=== PATIENT | male | born 1960 | race Caucasian/White ===

== ENCOUNTER 2020-04-22 12:37 | Inpatient (IN) | payer MEDICAID ==
[~2020-04-22] VITALS: Ht 157.5 cm; Wt 111.0 kg
[~2020-04-22 12:37] MED LIST: ASPI-1111 PO; ATOR40TA28 PO; CHOL100018 PO; CLOP75TA3 PO; FINA-27 PO; GABA-1181 PO; HALO10 PO; INSLAN SQ; ISOS60TA4 PO; LISI-661 PO; METF-960 PO; METO50 PO; PANT20TA12 PO; QUET200T PO; SERT100T12 PO; TAMS-1 PO
[2020-04-25 19:59] VITALS: BP 122/73
[2020-04-25] MEDS ORDERED: PNEUMOCOCCAL VACCINE POLYVALENT 0.5 ML VIAL [PPSV23] IM ONE (20:30)
[2020-04-26] MEDS ORDERED: NICOTINE 14 MG/24 HOUR PATCH TD PRN (06:45)
[2020-04-26] MEDS ORDERED: GuaiFENesin/D-METHORPHAN [SUGAR-FREE] 200-20MG/10 ML SYRUP UDCUP PO PRN (06:45)
[2020-04-26] MEDS ORDERED: CloNIDine HCL 0.1 MG TABLET PO PRN (06:45)
[2020-04-26] MEDS ORDERED: ONDANSETRON HCL 4 MG TABLET PO PRN (06:45)
[2020-04-26] MEDS ORDERED: LOPERAMIDE HCL 2 MG CAPSULE PO PRN (06:45)
[2020-04-26] MEDS ORDERED: MAGNESIUM HYDROXIDE SUSPENSION 30 ML UDCUP PO PRN (06:45)
[2020-04-26] MEDS ORDERED: ALBUTEROL SULFATE HFA 90 MCG/PUFF 8 GM INHALER IH PRN (06:45)
[2020-04-26] MEDS ORDERED: ACETAMINOPHEN 325 MG TABLET PO PRN (06:45)
[2020-04-26] MEDS ORDERED: DEXTROSE 50%-WATER 25 GM/50 ML SYRINGE IVP PRN (06:45)
[2020-04-26] MEDS ORDERED: DOCUSATE SODIUM 100 MG CAPSULE PO PRN (06:45)
[2020-04-26] MEDS ORDERED: PETROLATUM,WHITE 28 GM JELLY TP PRN (06:45)
[2020-04-26] MEDS: MetFORMIN HCL 500 MG TABLET PO SCH ×2 (06:56→16:33)
[2020-04-26] MEDS: LURASIDONE HCL 60 MG TABLET PO SCH ×2 (06:56→16:33)
[2020-04-26] MEDS: INSULIN LISPRO 100 UNITS/ML SQ PRN ×4 (07:08→21:06)
[2020-04-26 07:14] LABS: GLUCOMETER DEV NAME(LOC) 3E.I 2; GLUCOSE,POINT OF CARE 226 MG/DL (70-110)
[2020-04-26] MEDS: SERTRALINE HCL 100 MG TABLET PO SCH (08:24)
[2020-04-26] MEDS: METOPROLOL TARTRATE 25 MG TABLET PO SCH ×2 (08:24→16:35)
[2020-04-26] MEDS: LISINOPRIL 10 MG TABLET PO SCH (08:24)
[2020-04-26] MEDS: FINASTERIDE 5 MG TABLET PO SCH (08:24)
[2020-04-26] MEDS: GABAPENTIN 300 MG CAPSULE PO SCH ×3 (08:24→16:33)
[2020-04-26] MEDS: ASPIRIN 81 MG EC TABLET PO SCH (08:24)
[2020-04-26] MEDS: CLOPIDOGREL BISULFATE 75 MG TABLET PO SCH (08:24)
[2020-04-26] MEDS: ISOSORBIDE MONONITRATE 60 MG ER TABLET PO SCH (08:24)
[2020-04-26] MEDS: TAMSULOSIN HCL 0.4 MG CAPSULE PO SCH (08:24)
[2020-04-26 09:12] VITALS: BP 131/83
[2020-04-26 11:34] LABS: GLUCOMETER DEV NAME(LOC) 3E.I 2; GLUCOSE,POINT OF CARE 290 MG/DL (70-110)
[2020-04-26 16:10] VITALS: BP 105/53
[2020-04-26 17:29] LABS: GLUCOMETER DEV NAME(LOC) 3E.I 2; GLUCOSE,POINT OF CARE 216 MG/DL (70-110)
[2020-04-26 17:55] VITALS: BP 123/92
[2020-04-26 19:07] LABS: BASOPHILS % (AUTO) 0.4 % (0.0-2.0); EOSINOPHILS % (AUTO) 2.6 % (1.0-6.0); HEMATOCRIT 37.5 % (41-53); HEMOGLOBIN 12.3 g/dL (13.5-17.5); LYMPHOCYTES # (AUTO) 1.7 K/uL (1.0-4.8); LYMPHOCYTES % (AUTO) 32.8 % (22.0-44.0); MEAN CORPUSCULAR HEMOGLOBIN 25.1 pg (26.0-34.0); MEAN CORPUSCULAR HGB CONC 32.7 G/dL (31.0-37.0); MEAN CORPUSCULAR VOLUME 77 fL (80-100); MONOCYTES # (AUTO) 0.4 K/uL (0.1-1.0); MONOCYTES % (AUTO) 7.8 % (2.0-9.0); NEUTROPHILS # (AUTO) 2.9 K/uL (1.8-7.7); NEUTROPHILS % (AUTO) 56.4 % (40.0-70.0); PLATELET COUNT (AUTO) 273 K/uL (150-450); RED BLOOD CELL COUNT(AUTO) 4.89 MIL/uL (4.50-5.90); RED CELL DISTRIBUTION WIDTH 17.8 % (11.5-14.5)
[2020-04-26 19:13] LABS: ANION GAP 10 mmol/L (8-16); CALCIUM, TOTAL 9.1 mg/dL (8.8-10.5); CARBON DIOXIDE 26 mmol/L (22-29); CHLORIDE 100 mmol/L (98-107); CREATININE 0.98 mg/dL (0.60-1.30); GLOMERULAR FILTR. RATE CALC > 60 mL/min (>60); GLUCOSE,RANDOM 232 mg/dL (70-110); POTASSIUM 4.1 mmol/L (3.5-5.1); SODIUM SERUM 136 mmol/L (136-145); UREA NITROGEN, BLOOD 12 mg/dL (7-18)
[2020-04-26 19:38] LABS: ALANINE AMINOTRANSFERASE 52 U/L (12-78); ALBUMIN 3.9 g/dL (3.4-5.0); ALKALINE PHOSPHATASE 121 U/L (46-116); ASPARTATE AMINOTRANSFERASE 23 U/L (15-37); BILIRUBIN,TOTAL 0.4 mg/dL (0.1-1.0); CREATINE KINASE, TOTAL ONLY 245 U/L (39-308); TOTAL PROTEIN, SERUM 7.5 g/dL (6.4-8.2)
[2020-04-26] MEDS ORDERED: QUEtiapine FUMARATE 200 MG TABLET PO SCH (21:00)
[2020-04-26] MEDS: TraZODone HCL 100 MG TABLET PO SCH (21:07)
[2020-04-26] MEDS: INSULIN GLARGINE,HUM.REC.ANLOG 100 UNITS/ML SQ SCH (21:07)
[2020-04-26] MEDS: ATORVASTATIN CALCIUM 40 MG TABLET PO SCH (21:08)
[2020-04-26 21:23] LABS: GLUCOMETER DEV NAME(LOC) 3E.I 2; GLUCOSE,POINT OF CARE 180 MG/DL (70-110)
[2020-04-26 23:30] LABS: APPEARANCE,URINE CLEAR (CLEAR); BILIRUBIN,URINE NEGATIVE (NEGATIVE); GLUCOSE, URINE (UA) 100 mg/dL (NEGATIVE); KETONES,URINE NEGATIVE (NEGATIVE); LEUKOCYTE ESTERASE ,URINE NEGATIVE (NEGATIVE); NITRATE,URINE NEGATIVE (NEGATIVE); OCCULT BLOOD,URINE NEGATIVE (NEGATIVE); PROTEIN,URINE NEGATIVE (NEGATIVE)
[2020-04-26 23:36] LABS: AMPHET/METH SCREEN,URINE NEGATIVE (NEGATIVE); BARBITURATE SCREEN, URINE NEGATIVE (NEGATIVE); BENZODIAZEPINES SCREEN,URINE NEGATIVE (NEGATIVE); CANNABINOID SCREEN,URINE NEGATIVE (NEGATIVE); COCAINE SCREEN,URINE NEGATIVE (NEGATIVE); METHADONE SCREEN, URINE NEGATIVE (NEGATIVE); OPIATE SCREEN,URINE NEGATIVE (NEGATIVE)
[2020-04-26 23:37] LABS: PHENCYCLIDINE SCREEN,URINE NEGATIVE (NEGATIVE)
[2020-04-26 23:56] LABS: BACTERIA,URINE None Seen /HPF (None Seen); RBC,URINE None Seen /HPF (0-2); SQUAMOUS EPITHELIAL CELL,UR Few /LPF (None Seen); WBC,URINE None Seen /HPF (0-5); YEAST,URINE None Seen /HPF (None Seen)
[2020-04-27 05:20] LABS: GLUCOMETER DEV NAME(LOC) 3E.I 2; GLUCOSE,POINT OF CARE 191 MG/DL (70-110)
[2020-04-27] MEDS: MetFORMIN HCL 500 MG TABLET PO SCH ×2 (07:00→16:50)
[2020-04-27] MEDS: LURASIDONE HCL 60 MG TABLET PO SCH ×2 (07:00→16:51)
[2020-04-27] MEDS: INSULIN LISPRO 100 UNITS/ML SQ PRN ×4 (07:02→21:03)
[2020-04-27 08:00] VITALS: BP 144/75
[2020-04-27] MEDS: SERTRALINE HCL 100 MG TABLET PO SCH (08:48)
[2020-04-27] MEDS: METOPROLOL TARTRATE 25 MG TABLET PO SCH ×2 (08:48→17:42)
[2020-04-27] MEDS: ASPIRIN 81 MG EC TABLET PO SCH (08:48)
[2020-04-27] MEDS: ISOSORBIDE MONONITRATE 60 MG ER TABLET PO SCH (08:48)
[2020-04-27] MEDS: CLOPIDOGREL BISULFATE 75 MG TABLET PO SCH (08:48)
[2020-04-27] MEDS: FINASTERIDE 5 MG TABLET PO SCH (08:48)
[2020-04-27] MEDS: TAMSULOSIN HCL 0.4 MG CAPSULE PO SCH (08:48)
[2020-04-27] MEDS: LISINOPRIL 10 MG TABLET PO SCH (08:49)
[2020-04-27] MEDS: GABAPENTIN 300 MG CAPSULE PO SCH ×3 (08:49→16:50)
[2020-04-27 09:40] LABS: ALANINE AMINOTRANSFERASE 48 U/L (12-78); ALBUMIN 3.8 g/dL (3.4-5.0); ALKALINE PHOSPHATASE 116 U/L (46-116); ANION GAP 10 mmol/L (8-16); ASPARTATE AMINOTRANSFERASE 20 U/L (15-37); BILIRUBIN,TOTAL 0.5 mg/dL (0.1-1.0); CALCIUM, TOTAL 8.6 mg/dL (8.8-10.5); CARBON DIOXIDE 25 mmol/L (22-29); CHLORIDE 104 mmol/L (98-107); CREATININE 0.79 mg/dL (0.60-1.30); GLOMERULAR FILTR. RATE CALC > 60 mL/min (>60); GLUCOSE,RANDOM 212 mg/dL (70-110); POTASSIUM 4.6 mmol/L (3.5-5.1); SODIUM SERUM 139 mmol/L (136-145); TOTAL PROTEIN, SERUM 6.9 g/dL (6.4-8.2); UREA NITROGEN, BLOOD 11 mg/dL (7-18)
[2020-04-27 10:44] LABS: GLUCOMETER DEV NAME(LOC) 3E.I 2; GLUCOSE,POINT OF CARE 255 MG/DL (70-110)
[2020-04-27 15:45] VITALS: BP 121/76
[2020-04-27] MEDS: LORazepam 2 MG TABLET PO PRN (15:54)
[2020-04-27 16:40] VITALS: BP 114/67
[2020-04-27 17:40] VITALS: BP 138/75
[2020-04-27] MEDS: ATORVASTATIN CALCIUM 40 MG TABLET PO SCH (20:50)
[2020-04-27] MEDS: TraZODone HCL 100 MG TABLET PO SCH (20:50)
[2020-04-27] MEDS: INSULIN GLARGINE,HUM.REC.ANLOG 100 UNITS/ML SQ SCH (21:02)
[2020-04-28 05:25] LABS: GLUCOMETER DEV NAME(LOC) 3E.I 2; GLUCOSE,POINT OF CARE 223 MG/DL (70-110)
[2020-04-28] MEDS: LURASIDONE HCL 60 MG TABLET PO SCH ×2 (06:34→16:56)
[2020-04-28] MEDS: MetFORMIN HCL 500 MG TABLET PO SCH ×2 (06:34→16:55)
[2020-04-28] MEDS: INSULIN LISPRO 100 UNITS/ML SQ PRN ×4 (06:35→20:50)
[2020-04-28 08:00] VITALS: BP 107/70
[2020-04-28] MEDS: FINASTERIDE 5 MG TABLET PO SCH (09:30)
[2020-04-28] MEDS: CLOPIDOGREL BISULFATE 75 MG TABLET PO SCH (09:30)
[2020-04-28] MEDS: ISOSORBIDE MONONITRATE 60 MG ER TABLET PO SCH (09:30)
[2020-04-28] MEDS: ASPIRIN 81 MG EC TABLET PO SCH (09:33)
[2020-04-28] MEDS: GABAPENTIN 300 MG CAPSULE PO SCH ×3 (09:33→16:10)
[2020-04-28] MEDS: TAMSULOSIN HCL 0.4 MG CAPSULE PO SCH (09:33)
[2020-04-28] MEDS: SERTRALINE HCL 100 MG TABLET PO SCH (09:33)
[2020-04-28] MEDS: LISINOPRIL 10 MG TABLET PO SCH (09:33)
[2020-04-28] MEDS: METOPROLOL TARTRATE 25 MG TABLET PO SCH ×2 (09:33→16:10)
[2020-04-28 10:49] LABS: GLUCOMETER DEV NAME(LOC) 3E.I 2; GLUCOSE,POINT OF CARE 251 MG/DL (70-110)
[2020-04-28] MEDS: LORazepam 2 MG TABLET PO PRN (14:26)
[2020-04-28 16:21] LABS: GLUCOMETER DEV NAME(LOC) 3E.I 2; GLUCOSE,POINT OF CARE 210 MG/DL (70-110)
[2020-04-28 16:42] VITALS: BP 103/67
[2020-04-28] MEDS: HALOPERIDOL 5 MG TABLET PO PRN (17:09)
[2020-04-28] MEDS: ATORVASTATIN CALCIUM 40 MG TABLET PO SCH (20:46)
[2020-04-28] MEDS: TraZODone HCL 100 MG TABLET PO SCH (20:46)
[2020-04-28] MEDS: INSULIN GLARGINE,HUM.REC.ANLOG 100 UNITS/ML SQ SCH (20:51)
[2020-04-28 20:56] LABS: GLUCOMETER DEV NAME(LOC) 3E.I 2; GLUCOSE,POINT OF CARE 170 MG/DL (70-110)
[2020-04-29 05:42] LABS: GLUCOMETER DEV NAME(LOC) 3E.I 2; GLUCOSE,POINT OF CARE 194 MG/DL (70-110)
[2020-04-29] MEDS: LURASIDONE HCL 60 MG TABLET PO SCH ×2 (06:49→17:44)
[2020-04-29] MEDS: MetFORMIN HCL 500 MG TABLET PO SCH ×2 (06:49→17:44)
[2020-04-29] MEDS: INSULIN LISPRO 100 UNITS/ML SQ PRN ×4 (06:50→21:15)
[2020-04-29] MEDS: ISOSORBIDE MONONITRATE 60 MG ER TABLET PO SCH (09:00)
[2020-04-29] MEDS: SERTRALINE HCL 100 MG TABLET PO SCH (09:44)
[2020-04-29] MEDS: CLOPIDOGREL BISULFATE 75 MG TABLET PO SCH (09:44)
[2020-04-29] MEDS: FINASTERIDE 5 MG TABLET PO SCH (09:44)
[2020-04-29] MEDS: TAMSULOSIN HCL 0.4 MG CAPSULE PO SCH (09:44)
[2020-04-29] MEDS: METOPROLOL TARTRATE 25 MG TABLET PO SCH ×2 (09:44→17:04)
[2020-04-29] MEDS: GABAPENTIN 300 MG CAPSULE PO SCH ×3 (09:44→17:04)
[2020-04-29] MEDS: ASPIRIN 81 MG EC TABLET PO SCH (09:44)
[2020-04-29] MEDS: LISINOPRIL 10 MG TABLET PO SCH (09:45)
[2020-04-29 10:06] VITALS: BP 114/68
[2020-04-29 11:14] LABS: GLUCOMETER DEV NAME(LOC) 3E.I 2; GLUCOSE,POINT OF CARE 227 MG/DL (70-110)
[2020-04-29] MEDS: HALOPERIDOL 5 MG TABLET PO PRN (12:06)
[2020-04-29] MEDS: LORazepam 2 MG TABLET PO PRN (12:06)
[2020-04-29] MEDS ORDERED: TraMADol HCL 50 MG TABLET PO PRN (13:30)
[2020-04-29 13:47] VITALS: BP 114/70
[2020-04-29 16:00] VITALS: BP 120/67
[2020-04-29 17:47] LABS: GLUCOMETER DEV NAME(LOC) 3E.I 2; GLUCOSE,POINT OF CARE 157 MG/DL (70-110)
[2020-04-29] MEDS: ATORVASTATIN CALCIUM 40 MG TABLET PO SCH (21:09)
[2020-04-29] MEDS: TraZODone HCL 100 MG TABLET PO SCH (21:09)
[2020-04-29] MEDS: INSULIN GLARGINE,HUM.REC.ANLOG 100 UNITS/ML SQ SCH (21:17)
[2020-04-29 21:20] LABS: GLUCOMETER DEV NAME(LOC) 3E.I 2; GLUCOSE,POINT OF CARE 197 MG/DL (70-110)
[2020-04-30 05:28] LABS: GLUCOMETER DEV NAME(LOC) 3E.I 2; GLUCOSE,POINT OF CARE 183 MG/DL (70-110)
[2020-04-30] MEDS: MetFORMIN HCL 500 MG TABLET PO SCH ×2 (06:47→17:04)
[2020-04-30] MEDS: LURASIDONE HCL 60 MG TABLET PO SCH ×2 (06:47→17:06)
[2020-04-30] MEDS: INSULIN LISPRO 100 UNITS/ML SQ PRN ×4 (06:52→20:55)
[2020-04-30 08:00] VITALS: BP 105/56
[2020-04-30] MEDS: ISOSORBIDE MONONITRATE 60 MG ER TABLET PO SCH (09:00)
[2020-04-30] MEDS: ASPIRIN 81 MG EC TABLET PO SCH (11:01)
[2020-04-30] MEDS: METOPROLOL TARTRATE 25 MG TABLET PO SCH ×2 (11:02→17:00)
[2020-04-30] MEDS: TAMSULOSIN HCL 0.4 MG CAPSULE PO SCH (11:02)
[2020-04-30] MEDS: GABAPENTIN 300 MG CAPSULE PO SCH ×3 (11:02→17:04)
[2020-04-30] MEDS: LISINOPRIL 10 MG TABLET PO SCH (11:02)
[2020-04-30] MEDS: CLOPIDOGREL BISULFATE 75 MG TABLET PO SCH (11:04)
[2020-04-30] MEDS: FINASTERIDE 5 MG TABLET PO SCH (11:05)
[2020-04-30] MEDS: SERTRALINE HCL 100 MG TABLET PO SCH (11:05)
[2020-04-30 12:01] LABS: GLUCOMETER DEV NAME(LOC) 3E.I 2; GLUCOSE,POINT OF CARE 205 MG/DL (70-110)
[2020-04-30] MEDS: PANTOPRAZOLE SODIUM 40 MG DR TABLET PO SCH ×2 (13:13→17:04)
[2020-04-30] MEDS: LORazepam 2 MG TABLET PO PRN (14:22)
[2020-04-30 15:12] LABS: BASOPHILS % (AUTO) 0.5 % (0.0-2.0); EOSINOPHILS % (AUTO) 2.5 % (1.0-6.0); HEMATOCRIT 35.2 % (41-53); HEMOGLOBIN 11.7 g/dL (13.5-17.5); LYMPHOCYTES # (AUTO) 1.8 K/uL (1.0-4.8); LYMPHOCYTES % (AUTO) 34.5 % (22.0-44.0); MEAN CORPUSCULAR HEMOGLOBIN 25.5 pg (26.0-34.0); MEAN CORPUSCULAR HGB CONC 33.1 G/dL (31.0-37.0); MEAN CORPUSCULAR VOLUME 77 fL (80-100); MONOCYTES # (AUTO) 0.4 K/uL (0.1-1.0); MONOCYTES % (AUTO) 7.7 % (2.0-9.0); NEUTROPHILS # (AUTO) 2.8 K/uL (1.8-7.7); NEUTROPHILS % (AUTO) 54.8 % (40.0-70.0); PLATELET COUNT (AUTO) 239 K/uL (150-450); RED BLOOD CELL COUNT(AUTO) 4.57 MIL/uL (4.50-5.90)
[2020-04-30 16:00] VITALS: BP 116/69
[2020-04-30 16:18] VITALS: BP 95/58
[2020-04-30 16:57] LABS: GLUCOMETER DEV NAME(LOC) 3E.I 2; GLUCOSE,POINT OF CARE 152 MG/DL (70-110)
[2020-04-30] MEDS ORDERED: CHOL100018 PO (17:58)
[2020-04-30] MEDS: INSULIN GLARGINE,HUM.REC.ANLOG 100 UNITS/ML SQ SCH (20:49)
[2020-04-30] MEDS: TraZODone HCL 100 MG TABLET PO SCH (20:49)
[2020-04-30] MEDS: ATORVASTATIN CALCIUM 40 MG TABLET PO SCH (20:49)
[2020-04-30 20:59] LABS: GLUCOMETER DEV NAME(LOC) 3E.I 2; GLUCOSE,POINT OF CARE 173 MG/DL (70-110)
[2020-04-30] MEDS: MAG HYDROX/AL HYDROX/SIMETH ES 30 ML SUSPENSION UDCUP PO PRN (21:02)
[2020-05-01 05:23] LABS: GLUCOMETER DEV NAME(LOC) 3E.I 2; GLUCOSE,POINT OF CARE 148 MG/DL (70-110)
[2020-05-01] MEDS: MetFORMIN HCL 500 MG TABLET PO SCH ×2 (06:58→16:38)
[2020-05-01] MEDS: LURASIDONE HCL 60 MG TABLET PO SCH ×2 (06:58→16:39)
[2020-05-01] MEDS: INSULIN LISPRO 100 UNITS/ML SQ PRN ×3 (07:00→16:43)
[2020-05-01] MEDS: ASPIRIN 81 MG EC TABLET PO SCH (08:28)
[2020-05-01] MEDS: PANTOPRAZOLE SODIUM 40 MG DR TABLET PO SCH ×2 (08:28→16:38)
[2020-05-01] MEDS: LISINOPRIL 10 MG TABLET PO SCH (08:28)
[2020-05-01] MEDS: SERTRALINE HCL 100 MG TABLET PO SCH (08:28)
[2020-05-01] MEDS: FINASTERIDE 5 MG TABLET PO SCH (08:28)
[2020-05-01] MEDS: ISOSORBIDE MONONITRATE 60 MG ER TABLET PO SCH (08:28)
[2020-05-01] MEDS: GABAPENTIN 300 MG CAPSULE PO SCH ×3 (08:28→16:39)
[2020-05-01] MEDS: METOPROLOL TARTRATE 25 MG TABLET PO SCH ×2 (08:29→16:38)
[2020-05-01] MEDS: TAMSULOSIN HCL 0.4 MG CAPSULE PO SCH (08:29)
[2020-05-01] MEDS: CLOPIDOGREL BISULFATE 75 MG TABLET PO SCH (08:29)
[2020-05-01 09:16] VITALS: BP 104/68
[2020-05-01 11:06] LABS: GLUCOMETER DEV NAME(LOC) 3E.I 2; GLUCOSE,POINT OF CARE 165 MG/DL (70-110)
[2020-05-01 16:00] VITALS: BP 139/87
[2020-05-01 16:48] LABS: GLUCOMETER DEV NAME(LOC) 3E.I 2; GLUCOSE,POINT OF CARE 148 MG/DL (70-110)
[2020-05-01] MEDS: MAG HYDROX/AL HYDROX/SIMETH ES 30 ML SUSPENSION UDCUP PO PRN (18:56)
[2020-05-01] MEDS: TraZODone HCL 100 MG TABLET PO SCH (21:38)
[2020-05-01] MEDS: ATORVASTATIN CALCIUM 40 MG TABLET PO SCH (21:38)
[2020-05-01 21:40] VITALS: BP 120/80
[2020-05-01] MEDS: TraMADol HCL 50 MG TABLET PO PRN (21:40)
[2020-05-01] MEDS: INSULIN GLARGINE,HUM.REC.ANLOG 100 UNITS/ML SQ SCH (21:43)
[2020-05-01 21:48] LABS: GLUCOMETER DEV NAME(LOC) 3E.I 2; GLUCOSE,POINT OF CARE 132 MG/DL (70-110)
[2020-05-02] MEDS: LORazepam 2 MG TABLET PO PRN (03:23)
[2020-05-02 05:38] LABS: GLUCOMETER DEV NAME(LOC) 3E.I 2; GLUCOSE,POINT OF CARE 151 MG/DL (70-110)
[2020-05-02] MEDS: LURASIDONE HCL 60 MG TABLET PO SCH ×2 (06:52→17:19)
[2020-05-02] MEDS: MetFORMIN HCL 500 MG TABLET PO SCH ×2 (06:52→17:19)
[2020-05-02] MEDS: INSULIN LISPRO 100 UNITS/ML SQ PRN ×3 (06:54→20:52)
[2020-05-02] MEDS: CLOPIDOGREL BISULFATE 75 MG TABLET PO SCH (09:49)
[2020-05-02] MEDS: FINASTERIDE 5 MG TABLET PO SCH (09:49)
[2020-05-02] MEDS: GABAPENTIN 300 MG CAPSULE PO SCH ×3 (09:49→16:50)
[2020-05-02] MEDS: ISOSORBIDE MONONITRATE 60 MG ER TABLET PO SCH (09:49)
[2020-05-02] MEDS: LISINOPRIL 10 MG TABLET PO SCH (09:49)
[2020-05-02] MEDS: METOPROLOL TARTRATE 25 MG TABLET PO SCH ×2 (09:49→16:47)
[2020-05-02] MEDS: SERTRALINE HCL 100 MG TABLET PO SCH (09:50)
[2020-05-02] MEDS: TAMSULOSIN HCL 0.4 MG CAPSULE PO SCH (09:51)
[2020-05-02] MEDS: ASPIRIN 81 MG EC TABLET PO SCH (09:51)
[2020-05-02] MEDS: PANTOPRAZOLE SODIUM 40 MG DR TABLET PO SCH ×2 (09:51→16:50)
[2020-05-02 10:24] VITALS: BP 114/68
[2020-05-02 11:56] LABS: GLUCOMETER DEV NAME(LOC) 3E.I 2; GLUCOSE,POINT OF CARE 137 MG/DL (70-110)
[2020-05-02 16:00] VITALS: BP 98/61
[2020-05-02 16:57] LABS: GLUCOMETER DEV NAME(LOC) 3E.I 2; GLUCOSE,POINT OF CARE 178 MG/DL (70-110)
[2020-05-02] MEDS: ATORVASTATIN CALCIUM 40 MG TABLET PO SCH (20:47)
[2020-05-02] MEDS: TraZODone HCL 100 MG TABLET PO SCH (20:47)
[2020-05-02] MEDS: INSULIN GLARGINE,HUM.REC.ANLOG 100 UNITS/ML SQ SCH (20:51)
[2020-05-02 21:04] LABS: GLUCOMETER DEV NAME(LOC) 3E.I 2; GLUCOSE,POINT OF CARE 190 MG/DL (70-110)
[2020-05-03 05:39] LABS: GLUCOMETER DEV NAME(LOC) 3E.I 2; GLUCOSE,POINT OF CARE 160 MG/DL (70-110)
[2020-05-03] MEDS: LURASIDONE HCL 60 MG TABLET PO SCH ×2 (06:38→16:45)
[2020-05-03] MEDS: MetFORMIN HCL 500 MG TABLET PO SCH ×2 (06:38→16:45)
[2020-05-03] MEDS: INSULIN LISPRO 100 UNITS/ML SQ PRN ×4 (06:39→21:01)
[2020-05-03 08:22] VITALS: BP 112/58
[2020-05-03] MEDS: FINASTERIDE 5 MG TABLET PO SCH (10:16)
[2020-05-03] MEDS: CLOPIDOGREL BISULFATE 75 MG TABLET PO SCH (10:16)
[2020-05-03] MEDS: ISOSORBIDE MONONITRATE 60 MG ER TABLET PO SCH (10:16)
[2020-05-03] MEDS: TAMSULOSIN HCL 0.4 MG CAPSULE PO SCH (10:19)
[2020-05-03] MEDS: SERTRALINE HCL 100 MG TABLET PO SCH (10:19)
[2020-05-03] MEDS: ASPIRIN 81 MG EC TABLET PO SCH (10:19)
[2020-05-03] MEDS: LISINOPRIL 10 MG TABLET PO SCH (10:19)
[2020-05-03] MEDS: METOPROLOL TARTRATE 25 MG TABLET PO SCH ×2 (10:19→16:42)
[2020-05-03] MEDS: PANTOPRAZOLE SODIUM 40 MG DR TABLET PO SCH ×2 (10:19→16:46)
[2020-05-03] MEDS: GABAPENTIN 300 MG CAPSULE PO SCH ×3 (10:19→16:45)
[2020-05-03 11:58] LABS: GLUCOMETER DEV NAME(LOC) 3E.I 2; GLUCOSE,POINT OF CARE 215 MG/DL (70-110)
[2020-05-03 16:00] VITALS: BP 90/60
[2020-05-03 18:48] VITALS: BP 128/79
[2020-05-03] MEDS: LORazepam 2 MG TABLET PO PRN (18:54)
[2020-05-03] MEDS: TraZODone HCL 100 MG TABLET PO SCH (20:52)
[2020-05-03] MEDS: ATORVASTATIN CALCIUM 40 MG TABLET PO SCH (20:52)
[2020-05-03] MEDS: INSULIN GLARGINE,HUM.REC.ANLOG 100 UNITS/ML SQ SCH (21:02)
[2020-05-04 06:11] LABS: GLUCOMETER DEV NAME(LOC) 3E.I 2; GLUCOSE,POINT OF CARE 156 MG/DL (70-110)
[2020-05-04 06:44] VITALS: BP 134/67
[2020-05-04] MEDS: MetFORMIN HCL 500 MG TABLET PO SCH ×2 (06:50→16:39)
[2020-05-04] MEDS: INSULIN LISPRO 100 UNITS/ML SQ PRN ×3 (06:50→20:46)
[2020-05-04] MEDS: LURASIDONE HCL 60 MG TABLET PO SCH ×2 (07:07→16:39)
[2020-05-04] MEDS: SERTRALINE HCL 100 MG TABLET PO SCH (09:43)
[2020-05-04] MEDS: PANTOPRAZOLE SODIUM 40 MG DR TABLET PO SCH ×2 (09:43→16:39)
[2020-05-04] MEDS: TAMSULOSIN HCL 0.4 MG CAPSULE PO SCH (09:43)
[2020-05-04] MEDS: FINASTERIDE 5 MG TABLET PO SCH (09:44)
[2020-05-04] MEDS: ISOSORBIDE MONONITRATE 60 MG ER TABLET PO SCH (09:44)
[2020-05-04] MEDS: METOPROLOL TARTRATE 25 MG TABLET PO SCH ×2 (09:44→16:39)
[2020-05-04] MEDS: CLOPIDOGREL BISULFATE 75 MG TABLET PO SCH (09:44)
[2020-05-04] MEDS: GABAPENTIN 300 MG CAPSULE PO SCH ×3 (09:45→16:39)
[2020-05-04 09:46] VITALS: BP 128/80
[2020-05-04] MEDS: ASPIRIN 81 MG EC TABLET PO SCH (09:46)
[2020-05-04] MEDS: LISINOPRIL 10 MG TABLET PO SCH (09:46)
[2020-05-04 12:09] LABS: GLUCOMETER DEV NAME(LOC) 3E.I 2; GLUCOSE,POINT OF CARE 196 MG/DL (70-110)
[2020-05-04] MEDS: MAG HYDROX/AL HYDROX/SIMETH ES 30 ML SUSPENSION UDCUP PO PRN (12:58)
[2020-05-04] MEDS: LORazepam 2 MG TABLET PO PRN (12:58)
[2020-05-04 16:00] VITALS: BP 105/74
[2020-05-04 16:50] LABS: GLUCOMETER DEV NAME(LOC) 3E.I 2; GLUCOSE,POINT OF CARE 138 MG/DL (70-110)
[2020-05-04] MEDS: TraZODone HCL 100 MG TABLET PO SCH (20:42)
[2020-05-04] MEDS: ATORVASTATIN CALCIUM 40 MG TABLET PO SCH (20:42)
[2020-05-04] MEDS: ZOLPIDEM TARTRATE 10 MG TABLET PO PRN (20:43)
[2020-05-04] MEDS: INSULIN GLARGINE,HUM.REC.ANLOG 100 UNITS/ML SQ SCH (20:49)
[2020-05-04 20:53] LABS: GLUCOMETER DEV NAME(LOC) 3E.I 2; GLUCOSE,POINT OF CARE 143 MG/DL (70-110)
[2020-05-05 05:37] LABS: GLUCOMETER DEV NAME(LOC) 3E.I 2; GLUCOSE,POINT OF CARE 159 MG/DL (70-110)
[2020-05-05] MEDS: MetFORMIN HCL 500 MG TABLET PO SCH ×2 (07:08→16:39)
[2020-05-05] MEDS: LURASIDONE HCL 60 MG TABLET PO SCH ×2 (07:08→16:39)
[2020-05-05] MEDS: INSULIN LISPRO 100 UNITS/ML SQ PRN ×3 (07:11→17:35)
[2020-05-05 09:44] VITALS: BP 127/66
[2020-05-05] MEDS: PANTOPRAZOLE SODIUM 40 MG DR TABLET PO SCH ×2 (09:47→16:35)
[2020-05-05] MEDS: FINASTERIDE 5 MG TABLET PO SCH (09:47)
[2020-05-05] MEDS: TAMSULOSIN HCL 0.4 MG CAPSULE PO SCH (09:47)
[2020-05-05] MEDS: METOPROLOL TARTRATE 25 MG TABLET PO SCH ×2 (09:47→16:35)
[2020-05-05] MEDS: LISINOPRIL 10 MG TABLET PO SCH (09:47)
[2020-05-05] MEDS: CLOPIDOGREL BISULFATE 75 MG TABLET PO SCH (09:48)
[2020-05-05] MEDS: ISOSORBIDE MONONITRATE 60 MG ER TABLET PO SCH (09:48)
[2020-05-05] MEDS: ASPIRIN 81 MG EC TABLET PO SCH (09:48)
[2020-05-05] MEDS: SERTRALINE HCL 100 MG TABLET PO SCH (09:48)
[2020-05-05] MEDS: GABAPENTIN 300 MG CAPSULE PO SCH ×3 (09:48→16:35)
[2020-05-05 11:32] LABS: GLUCOMETER DEV NAME(LOC) 3E.I 2; GLUCOSE,POINT OF CARE 196 MG/DL (70-110)
[2020-05-05] MEDS ORDERED: LURA60TA PO (12:57)
[2020-05-05] MEDS ORDERED: SERT100T12 PO ×2 (12:58→13:03)
[2020-05-05] MEDS ORDERED: TRAZ-257 PO (12:58)
[2020-05-05] MEDS ORDERED: ASPI-1111 PO (12:59)
[2020-05-05] MEDS ORDERED: FINA-27 PO (13:00)
[2020-05-05] MEDS ORDERED: ATOR40TA28 PO (13:00)
[2020-05-05] MEDS ORDERED: CLOP75TA3 PO (13:00)
[2020-05-05] MEDS ORDERED: INSLAN SQ (13:01)
[2020-05-05] MEDS ORDERED: GABA-1181 PO (13:01)
[2020-05-05] MEDS ORDERED: ISOS60TA4 PO (13:01)
[2020-05-05] MEDS ORDERED: LISI-661 PO (13:01)
[2020-05-05] MEDS ORDERED: METO25 PO (13:02)
[2020-05-05] MEDS ORDERED: PANT-31 PO (13:02)
[2020-05-05] MEDS ORDERED: METF-960 PO (13:02)
[2020-05-05] MEDS ORDERED: TAMS-13 PO (13:03)
[2020-05-05 16:14] VITALS: BP 92/60
[2020-05-05 17:20] LABS: GLUCOMETER DEV NAME(LOC) 3E.I 2; GLUCOSE,POINT OF CARE 182 MG/DL (70-110)
[2020-05-05 17:50] VITALS: BP 132/71
[2020-05-05] MEDS: LORazepam 2 MG TABLET PO PRN (17:53)
[2020-05-05] MEDS: INSULIN GLARGINE,HUM.REC.ANLOG 100 UNITS/ML SQ SCH (21:00)
[2020-05-05] MEDS: ATORVASTATIN CALCIUM 40 MG TABLET PO SCH (21:34)
[2020-05-05] MEDS: TraZODone HCL 100 MG TABLET PO SCH (21:34)
[2020-05-05 21:50] LABS: GLUCOMETER DEV NAME(LOC) 3E.I 2; GLUCOSE,POINT OF CARE 124 MG/DL (70-110)
[2020-05-06 05:37] LABS: GLUCOMETER DEV NAME(LOC) 3E.I 2; GLUCOSE,POINT OF CARE 163 MG/DL (70-110)
[2020-05-06] MEDS: MetFORMIN HCL 500 MG TABLET PO SCH ×2 (06:38→16:31)
[2020-05-06] MEDS: INSULIN LISPRO 100 UNITS/ML SQ PRN ×3 (06:39→17:02)
[2020-05-06] MEDS: LURASIDONE HCL 60 MG TABLET PO SCH ×2 (06:39→16:31)
[2020-05-06 09:32] VITALS: BP 156/87
[2020-05-06] MEDS: FINASTERIDE 5 MG TABLET PO SCH (10:02)
[2020-05-06] MEDS: TAMSULOSIN HCL 0.4 MG CAPSULE PO SCH (10:02)
[2020-05-06] MEDS: SERTRALINE HCL 100 MG TABLET PO SCH (10:02)
[2020-05-06] MEDS: ASPIRIN 81 MG EC TABLET PO SCH (10:03)
[2020-05-06] MEDS: ISOSORBIDE MONONITRATE 60 MG ER TABLET PO SCH (10:03)
[2020-05-06] MEDS: PANTOPRAZOLE SODIUM 40 MG DR TABLET PO SCH ×2 (10:03→16:31)
[2020-05-06] MEDS: GABAPENTIN 300 MG CAPSULE PO SCH ×3 (10:03→16:31)
[2020-05-06] MEDS: CLOPIDOGREL BISULFATE 75 MG TABLET PO SCH (10:03)
[2020-05-06] MEDS: METOPROLOL TARTRATE 25 MG TABLET PO SCH ×2 (10:04→16:31)
[2020-05-06] MEDS: LISINOPRIL 10 MG TABLET PO SCH (10:04)
[2020-05-06 12:55] LABS: GLUCOMETER DEV NAME(LOC) 3E.I 2; GLUCOSE,POINT OF CARE 252 MG/DL (70-110)
[2020-05-06] MEDS: TraMADol HCL 50 MG TABLET PO PRN (13:29)
[2020-05-06] MEDS: LORazepam 2 MG TABLET PO PRN (13:29)
[2020-05-06 16:01] VITALS: BP 115/71
[2020-05-06 16:57] LABS: GLUCOMETER DEV NAME(LOC) 3E.I 2; GLUCOSE,POINT OF CARE 170 MG/DL (70-110)
[2020-05-06] MEDS ORDERED: PROMETHAZINE HCL 25 MG TABLET PO PRN (17:45)
[2020-05-06] MEDS: TraZODone HCL 100 MG TABLET PO SCH (21:55)
[2020-05-06] MEDS: ATORVASTATIN CALCIUM 40 MG TABLET PO SCH (21:55)
[2020-05-06] MEDS: INSULIN GLARGINE,HUM.REC.ANLOG 100 UNITS/ML SQ SCH (22:00)
[2020-05-07 05:42] LABS: GLUCOMETER DEV NAME(LOC) 3E.I 2; GLUCOSE,POINT OF CARE 207 MG/DL (70-110)
[2020-05-07] MEDS: LURASIDONE HCL 60 MG TABLET PO SCH ×2 (06:42→16:58)
[2020-05-07] MEDS: MetFORMIN HCL 500 MG TABLET PO SCH ×2 (06:42→16:58)
[2020-05-07] MEDS: INSULIN LISPRO 100 UNITS/ML SQ PRN ×4 (06:42→21:06)
[2020-05-07] MEDS: CLOPIDOGREL BISULFATE 75 MG TABLET PO SCH (08:16)
[2020-05-07] MEDS: ISOSORBIDE MONONITRATE 60 MG ER TABLET PO SCH (08:16)
[2020-05-07] MEDS: LISINOPRIL 10 MG TABLET PO SCH (08:19)
[2020-05-07] MEDS: METOPROLOL TARTRATE 25 MG TABLET PO SCH ×2 (08:20→16:20)
[2020-05-07] MEDS: TAMSULOSIN HCL 0.4 MG CAPSULE PO SCH (08:26)
[2020-05-07] MEDS: ASPIRIN 81 MG EC TABLET PO SCH (08:26)
[2020-05-07] MEDS: GABAPENTIN 300 MG CAPSULE PO SCH ×3 (08:26→16:57)
[2020-05-07] MEDS: SERTRALINE HCL 100 MG TABLET PO SCH (08:26)
[2020-05-07] MEDS: PANTOPRAZOLE SODIUM 40 MG DR TABLET PO SCH ×2 (08:28→16:58)
[2020-05-07] MEDS: FINASTERIDE 5 MG TABLET PO SCH ×2 (09:00→11:31)
[2020-05-07 10:21] VITALS: BP 135/71
[2020-05-07 11:12] LABS: GLUCOMETER DEV NAME(LOC) 3E.I 2; GLUCOSE,POINT OF CARE 215 MG/DL (70-110)
[2020-05-07 17:03] VITALS: BP 91/53
[2020-05-07 17:12] LABS: GLUCOMETER DEV NAME(LOC) 3E.I 2; GLUCOSE,POINT OF CARE 178 MG/DL (70-110)
[2020-05-07] MEDS: TraZODone HCL 100 MG TABLET PO SCH (21:03)
[2020-05-07] MEDS: ATORVASTATIN CALCIUM 40 MG TABLET PO SCH (21:03)
[2020-05-07] MEDS: INSULIN GLARGINE,HUM.REC.ANLOG 100 UNITS/ML SQ SCH (21:05)
[2020-05-07 21:26] LABS: GLUCOMETER DEV NAME(LOC) 3E.I 2; GLUCOSE,POINT OF CARE 147 MG/DL (70-110)
[2020-05-08 05:43] LABS: GLUCOMETER DEV NAME(LOC) 3E.I 2; GLUCOSE,POINT OF CARE 178 MG/DL (70-110)
[2020-05-08] MEDS: INSULIN LISPRO 100 UNITS/ML SQ PRN ×3 (06:35→16:18)
[2020-05-08] MEDS: MetFORMIN HCL 500 MG TABLET PO SCH ×2 (06:36→16:40)
[2020-05-08] MEDS: LURASIDONE HCL 60 MG TABLET PO SCH ×2 (06:37→16:39)
[2020-05-08] MEDS: CLOPIDOGREL BISULFATE 75 MG TABLET PO SCH (08:54)
[2020-05-08] MEDS: ISOSORBIDE MONONITRATE 60 MG ER TABLET PO SCH (08:54)
[2020-05-08] MEDS: FINASTERIDE 5 MG TABLET PO SCH (08:54)
[2020-05-08] MEDS: GABAPENTIN 300 MG CAPSULE PO SCH ×3 (09:00→16:19)
[2020-05-08] MEDS: ASPIRIN 81 MG EC TABLET PO SCH (09:00)
[2020-05-08] MEDS: LISINOPRIL 10 MG TABLET PO SCH (09:00)
[2020-05-08] MEDS: SERTRALINE HCL 100 MG TABLET PO SCH (09:00)
[2020-05-08] MEDS: METOPROLOL TARTRATE 25 MG TABLET PO SCH ×2 (09:00→16:19)
[2020-05-08] MEDS: TAMSULOSIN HCL 0.4 MG CAPSULE PO SCH (09:00)
[2020-05-08] MEDS: PANTOPRAZOLE SODIUM 40 MG DR TABLET PO SCH ×2 (09:00→16:19)
[2020-05-08 09:23] VITALS: BP 142/76
[2020-05-08 12:11] LABS: GLUCOMETER DEV NAME(LOC) 3E.I 2; GLUCOSE,POINT OF CARE 213 MG/DL (70-110)
[2020-05-08] MEDS: LORazepam 2 MG TABLET PO PRN (12:53)
[2020-05-08 16:27] LABS: GLUCOMETER DEV NAME(LOC) 3E.I 2; GLUCOSE,POINT OF CARE 166 MG/DL (70-110)
[2020-05-08 16:53] VITALS: BP 131/69
[2020-05-08] MEDS: ATORVASTATIN CALCIUM 40 MG TABLET PO SCH (20:10)
[2020-05-08] MEDS: TraZODone HCL 100 MG TABLET PO SCH (20:10)
[2020-05-08] MEDS: INSULIN GLARGINE,HUM.REC.ANLOG 100 UNITS/ML SQ SCH (20:12)
[2020-05-08] MEDS: ZOLPIDEM TARTRATE 10 MG TABLET PO PRN (20:13)
[2020-05-08 20:23] LABS: GLUCOMETER DEV NAME(LOC) 3E.I 2; GLUCOSE,POINT OF CARE 132 MG/DL (70-110)
[2020-05-09 05:44] LABS: GLUCOMETER DEV NAME(LOC) 3E.I 2; GLUCOSE,POINT OF CARE 166 MG/DL (70-110)
[2020-05-09] MEDS: LURASIDONE HCL 60 MG TABLET PO SCH ×2 (06:57→16:46)
[2020-05-09] MEDS: MetFORMIN HCL 500 MG TABLET PO SCH (06:58)
[2020-05-09] MEDS: INSULIN LISPRO 100 UNITS/ML SQ PRN ×4 (06:59→21:04)
[2020-05-09 08:00] VITALS: BP 131/78
[2020-05-09] MEDS: METOPROLOL TARTRATE 25 MG TABLET PO SCH ×2 (08:43→16:47)
[2020-05-09] MEDS: ISOSORBIDE MONONITRATE 60 MG ER TABLET PO SCH (08:43)
[2020-05-09] MEDS: ASPIRIN 81 MG EC TABLET PO SCH (08:43)
[2020-05-09] MEDS: TAMSULOSIN HCL 0.4 MG CAPSULE PO SCH (08:43)
[2020-05-09] MEDS: GABAPENTIN 300 MG CAPSULE PO SCH ×3 (08:43→16:47)
[2020-05-09] MEDS: FINASTERIDE 5 MG TABLET PO SCH (08:43)
[2020-05-09] MEDS: PANTOPRAZOLE SODIUM 40 MG DR TABLET PO SCH ×2 (08:43→16:47)
[2020-05-09] MEDS: LISINOPRIL 10 MG TABLET PO SCH (08:43)
[2020-05-09] MEDS: SERTRALINE HCL 100 MG TABLET PO SCH (08:44)
[2020-05-09] MEDS: CLOPIDOGREL BISULFATE 75 MG TABLET PO SCH (08:46)
[2020-05-09 11:17] LABS: GLUCOMETER DEV NAME(LOC) 3E.I 2; GLUCOSE,POINT OF CARE 215 MG/DL (70-110)
[2020-05-09 13:09] LABS: ANION GAP 11 mmol/L (8-16); CALCIUM, TOTAL 9.3 mg/dL (8.8-10.5); CARBON DIOXIDE 25 mmol/L (22-29); CHLORIDE 102 mmol/L (98-107); CREATININE 0.96 mg/dL (0.60-1.30); GLOMERULAR FILTR. RATE CALC > 60 mL/min (>60); GLUCOSE,RANDOM 218 mg/dL (70-110); POTASSIUM 4.5 mmol/L (3.5-5.1); SODIUM SERUM 138 mmol/L (136-145); UREA NITROGEN, BLOOD 18 mg/dL (7-18)
[2020-05-09] MEDS ORDERED: IOVERSOL 350 MG/ML 150 ML VIAL ONE (15:35)
[2020-05-09] MEDS ORDERED: SODIUM CHLORIDE 0.9% 100 ML ONE (15:35)
[2020-05-09 16:00] VITALS: BP 131/73
[2020-05-09 17:25] LABS: GLUCOMETER DEV NAME(LOC) 3E.I 2; GLUCOSE,POINT OF CARE 189 MG/DL (70-110)
[2020-05-09] MEDS ORDERED: IBUPROFEN 400 MG TABLET PO PRN (17:30)
[2020-05-09 20:00] VITALS: BP 136/70
[2020-05-09] MEDS: TraZODone HCL 100 MG TABLET PO SCH (20:49)
[2020-05-09] MEDS: ATORVASTATIN CALCIUM 40 MG TABLET PO SCH (20:50)
[2020-05-09] MEDS: INSULIN GLARGINE,HUM.REC.ANLOG 100 UNITS/ML SQ SCH (21:03)
[2020-05-09 21:05] LABS: GLUCOMETER DEV NAME(LOC) 3E.I 2; GLUCOSE,POINT OF CARE 185 MG/DL (70-110)
[2020-05-10 05:32] LABS: GLUCOMETER DEV NAME(LOC) 3E.I 2; GLUCOSE,POINT OF CARE 176 MG/DL (70-110)
[2020-05-10] MEDS: LURASIDONE HCL 60 MG TABLET PO SCH ×2 (06:42→16:34)
[2020-05-10] MEDS: INSULIN LISPRO 100 UNITS/ML SQ PRN ×3 (06:44→17:28)
[2020-05-10 08:00] VITALS: BP 126/78
[2020-05-10] MEDS: PANTOPRAZOLE SODIUM 40 MG DR TABLET PO SCH ×2 (08:13→16:33)
[2020-05-10] MEDS: TAMSULOSIN HCL 0.4 MG CAPSULE PO SCH (08:13)
[2020-05-10] MEDS: METOPROLOL TARTRATE 25 MG TABLET PO SCH ×2 (08:13→16:33)
[2020-05-10] MEDS: LISINOPRIL 10 MG TABLET PO SCH (08:13)
[2020-05-10] MEDS: ISOSORBIDE MONONITRATE 60 MG ER TABLET PO SCH (08:14)
[2020-05-10] MEDS: CLOPIDOGREL BISULFATE 75 MG TABLET PO SCH (08:14)
[2020-05-10] MEDS: SERTRALINE HCL 100 MG TABLET PO SCH (08:14)
[2020-05-10] MEDS: ASPIRIN 81 MG EC TABLET PO SCH (08:14)
[2020-05-10] MEDS: FINASTERIDE 5 MG TABLET PO SCH (08:14)
[2020-05-10] MEDS: GABAPENTIN 300 MG CAPSULE PO SCH ×3 (08:14→16:33)
[2020-05-10 11:58] LABS: GLUCOMETER DEV NAME(LOC) 3E.I 2; GLUCOSE,POINT OF CARE 224 MG/DL (70-110)
[2020-05-10 16:00] VITALS: BP 119/62
[2020-05-10] MEDS: LORazepam 2 MG TABLET PO PRN (16:36)
[2020-05-10] MEDS: HALOPERIDOL 5 MG TABLET PO PRN (16:36)
[2020-05-10 16:50] LABS: GLUCOMETER DEV NAME(LOC) 3E.I 2; GLUCOSE,POINT OF CARE 213 MG/DL (70-110)
[2020-05-10] MEDS: TraZODone HCL 100 MG TABLET PO SCH (21:09)
[2020-05-10] MEDS: ATORVASTATIN CALCIUM 40 MG TABLET PO SCH (21:09)
[2020-05-10] MEDS: INSULIN GLARGINE,HUM.REC.ANLOG 100 UNITS/ML SQ SCH (21:19)
[2020-05-10 21:26] LABS: GLUCOMETER DEV NAME(LOC) 3E.I 2; GLUCOSE,POINT OF CARE 138 MG/DL (70-110)
[2020-05-11 05:40] LABS: GLUCOMETER DEV NAME(LOC) 3E.I 2; GLUCOSE,POINT OF CARE 155 MG/DL (70-110)
[2020-05-11] MEDS: LURASIDONE HCL 60 MG TABLET PO SCH (06:50)
[2020-05-11] MEDS: INSULIN LISPRO 100 UNITS/ML SQ PRN ×2 (06:51→12:03)
[2020-05-11 08:45] VITALS: BP 165/88
[2020-05-11] MEDS: PANTOPRAZOLE SODIUM 40 MG DR TABLET PO SCH (09:34)
[2020-05-11] MEDS: ISOSORBIDE MONONITRATE 60 MG ER TABLET PO SCH (09:34)
[2020-05-11] MEDS: CLOPIDOGREL BISULFATE 75 MG TABLET PO SCH (09:35)
[2020-05-11] MEDS: TAMSULOSIN HCL 0.4 MG CAPSULE PO SCH (09:35)
[2020-05-11] MEDS: GABAPENTIN 300 MG CAPSULE PO SCH ×2 (09:35→13:11)
[2020-05-11] MEDS: FINASTERIDE 5 MG TABLET PO SCH (09:35)
[2020-05-11] MEDS: ASPIRIN 81 MG EC TABLET PO SCH (09:35)
[2020-05-11] MEDS: SERTRALINE HCL 100 MG TABLET PO SCH (09:35)
[2020-05-11] MEDS: LISINOPRIL 10 MG TABLET PO SCH (09:35)
[2020-05-11] MEDS: METOPROLOL TARTRATE 25 MG TABLET PO SCH (09:35)
[2020-05-11] MEDS: TraMADol HCL 50 MG TABLET PO PRN (10:24)
[2020-05-11 12:06] LABS: GLUCOMETER DEV NAME(LOC) 3E.I 2; GLUCOSE,POINT OF CARE 181 MG/DL (70-110)
[2020-05-11] MEDS ORDERED: METO25 PO (15:47)
[2020-05-11] MEDS ORDERED: INSULIN GLARGINE,HUM.REC.ANLOG 100 UNITS/ML SQ SCH ×2 (21:00)
== END 2020-05-11 17:00 | disposition home or self-care (01) | DRG 885 ==
LOC: 3EI 04-25 18:00
PROVIDERS: ADMIT Psychiatry & Neurology Psychiatry; ATTEND Psychiatry & Neurology Psychiatry
DX: F25.1 Schizoaffective disorder, depressive type (principal); G89.29 Other chronic pain; I10 Essential (primary) hypertension; I25.10 Atherosclerotic heart disease of native coronary artery without angina pectoris; K21.9 Gastro-esophageal reflux disease without esophagitis; K64.9 Unspecified hemorrhoids; N40.0 Benign prostatic hyperplasia without lower urinary tract symptoms; E11.42 Type 2 diabetes mellitus with diabetic polyneuropathy; G47.30 Sleep apnea, unspecified; R07.9 Chest pain, unspecified; M54.9 Dorsalgia, unspecified; D64.9 Anemia, unspecified; E78.5 Hyperlipidemia, unspecified; I25.2 Old myocardial infarction; Z79.82 Long term (current) use of aspirin; Z79.02 Long term (current) use of antithrombotics/antiplatelets; Z86.73 Personal history of transient ischemic attack (TIA), and cerebral infarction without residual deficits; Z87.442 Personal history of urinary calculi; Z95.5 Presence of coronary angioplasty implant and graft; Z98.890 Other specified postprocedural states; Z79.01 Long term (current) use of anticoagulants; Z79.1 Long term (current) use of non-steroidal anti-inflammatories (NSAID); Z79.4 Long term (current) use of insulin; Z79.84 Long term (current) use of oral hypoglycemic drugs; Z88.6 Allergy status to analgesic agent; Z88.8 Allergy status to other drugs, medicaments and biological substances; Z03.818 Encounter for observation for suspected exposure to other biological agents ruled out
CPT/HCPCS: 70450; 71260; 80307; 87081; 93005; J1815; J7050; Q0162

== ENCOUNTER 2020-11-18 19:01 | Emergency (ER) | payer MEDICAID ==
[~2020-11-18] VITALS: Ht 188 cm; Wt 109.1 kg
[~2020-11-18 19:01] MED LIST changes: -CHOL100018 PO; -CLOP75TA3 PO; +CLOP75TA60 PO; -HALO10 PO; +LURA60TA PO; -METF-960 PO; +METO25 PO; -METO50 PO; -PANT20TA12 PO; +PANT20TA18 PO; -QUET200T PO; -TAMS-1 PO; +TAMS-13 PO; +TRAZ-257 PO
[2020-11-18 21:26] LABS: AMPHET/METH SCREEN,URINE NEGATIVE (NEGATIVE); BARBITURATE SCREEN, URINE NEGATIVE (NEGATIVE); BENZODIAZEPINES SCREEN,URINE NEGATIVE (NEGATIVE); CANNABINOID SCREEN,URINE NEGATIVE (NEGATIVE); COCAINE SCREEN,URINE NEGATIVE (NEGATIVE); METHADONE SCREEN, URINE NEGATIVE (NEGATIVE); OPIATE SCREEN,URINE NEGATIVE (NEGATIVE)
[2020-11-18 21:28] LABS: PHENCYCLIDINE SCREEN,URINE NEGATIVE (NEGATIVE)
[2020-11-18] MEDS ORDERED: IBUPROFEN 600 MG TABLET PO ONE (21:30)
[2020-11-18] MEDS ORDERED: PROMETHAZINE HCL 25 MG TABLET PO ONE (21:30)
[2020-11-18 21:40] LABS: BASOPHILS % (AUTO) 0.8 % (0.0-2.0); EOSINOPHILS % (AUTO) 3.7 % (1.0-6.0); HEMATOCRIT 37.8 % (41-53); HEMOGLOBIN 12.5 g/dL (13.5-17.5); LYMPHOCYTES # (AUTO) 1.8 K/uL (1.0-4.8); LYMPHOCYTES % (AUTO) 33.3 % (22.0-44.0); MEAN CORPUSCULAR HEMOGLOBIN 27.3 pg (26.0-34.0); MEAN CORPUSCULAR HGB CONC 32.9 G/dL (31.0-37.0); MEAN CORPUSCULAR VOLUME 83 fL (80-100); MONOCYTES # (AUTO) 0.5 K/uL (0.1-1.0); MONOCYTES % (AUTO) 9.7 % (2.0-9.0); NEUTROPHILS # (AUTO) 2.8 K/uL (1.8-7.7); NEUTROPHILS % (AUTO) 52.5 % (40.0-70.0); PLATELET COUNT (AUTO) 270 K/uL (150-450); RED BLOOD CELL COUNT(AUTO) 4.56 MIL/uL (4.50-5.90); RED CELL DISTRIBUTION WIDTH 15.8 % (11.5-14.5)
[2020-11-18 21:49] LABS: ANION GAP 9 mmol/L (8-16); CALCIUM, TOTAL 9.5 mg/dL (8.8-10.5); CARBON DIOXIDE 26 mmol/L (22-29); CHLORIDE 103 mmol/L (98-107); CREATININE 0.98 mg/dL (0.60-1.30); GLOMERULAR FILTR. RATE CALC > 60 mL/min (>60); GLUCOSE,RANDOM 231 mg/dL (70-110); POTASSIUM 3.9 mmol/L (3.5-5.1); SODIUM SERUM 138 mmol/L (136-145); UREA NITROGEN, BLOOD 11 mg/dL (7-18)
[2020-11-18 21:54] LABS: GLUCOSE,POINT OF CARE 192 MG/DL (70-110)
[2020-11-18 21:55] LABS: ALANINE AMINOTRANSFERASE 39 U/L (12-78); ALBUMIN 3.6 g/dL (3.4-5.0); ALKALINE PHOSPHATASE 126 U/L (46-116); ASPARTATE AMINOTRANSFERASE 18 U/L (15-37); BILIRUBIN,TOTAL 0.2 mg/dL (0.1-1.0); TOTAL PROTEIN, SERUM 7.2 g/dL (6.4-8.2)
[2020-11-18] MEDS ORDERED: HALOPERIDOL 5 MG TABLET PO ONE (22:45)
[2020-11-18 23:00] VITALS: BP 124/81
== END 2020-11-19 01:29 | disposition home or self-care (01) ==
LOC: EMS 19:01
DX: F20.9 Schizophrenia, unspecified (principal); I11.9 Hypertensive heart disease without heart failure; E11.9 Type 2 diabetes mellitus without complications; Z79.01 Long term (current) use of anticoagulants
CPT/HCPCS: 36415; 71045; 80053; 80307; 82962; 84484; 85025; 93005; 99285; G0480

== ENCOUNTER 2021-10-14 04:40 | Inpatient (IN) | payer MEDICAID ==
[~2021-10-14] VITALS: Ht 188 cm; Wt 111.6 kg
[~2021-10-14 04:40] MED LIST changes: -ASPI-1111 PO; +ASPI-1444 PO; -ISOS60TA4 PO; +ISOS60TA77 PO; -LISI-661 PO; +LISI-893 PO; +SERT-162 PO; -SERT100T12 PO
[2021-10-14] MEDS: SERTRALINE HCL 50 MG TABLET PO SCH (11:15)
[2021-10-14] MEDS: LURASIDONE HCL 40 MG TABLET PO SCH ×2 (11:15→17:07)
[2021-10-14] MEDS ORDERED: ZOLPIDEM TARTRATE 10 MG TABLET PO PRN (11:15)
[2021-10-14] MEDS ORDERED: GLUCAGON,HUMAN RECOMBINANT 1 MG VIAL IM PRN ×2 (13:15→16:15)
[2021-10-14 14:25] VITALS: BP 142/93
[2021-10-14] MEDS ORDERED: INSULIN LISPRO 100 UNITS/ML SQ PRN (16:15)
[2021-10-14] MEDS: METOPROLOL TARTRATE 25 MG TABLET PO SCH (16:35)
[2021-10-14] MEDS: GABAPENTIN 300 MG CAPSULE PO SCH (16:36)
[2021-10-14 16:45] VITALS: BP 104/58
[2021-10-14 16:52] LABS: GLUCOMETER DEV NAME(LOC) BV2S.; GLUCOSE,POINT OF CARE 272 MG/DL (70-110)
[2021-10-14] MEDS: INSULIN LISPRO 100 UNITS/ML SQ PRN (17:02)
[2021-10-14 19:28] VITALS: BP 128/90
[2021-10-14 19:42] VITALS: BP 128/90
[2021-10-14] MEDS: INSULIN GLARGINE,HUM.REC.ANLOG 100 UNITS/ML SQ SCH (21:00)
[2021-10-14] MEDS: TraZODone HCL 50 MG TABLET PO SCH (21:00)
[2021-10-15 08:01] LABS: BASOPHILS % (AUTO) 0.5 % (0.0-2.0); EOSINOPHILS % (AUTO) 3.8 % (1.0-6.0); HEMATOCRIT 32.9 % (41-53); HEMOGLOBIN 10.6 g/dL (13.5-17.5); LYMPHOCYTES # (AUTO) 1.2 K/uL (1.0-4.8); LYMPHOCYTES % (AUTO) 31.1 % (22.0-44.0); MEAN CORPUSCULAR HEMOGLOBIN 23.6 pg (26.0-34.0); MEAN CORPUSCULAR HGB CONC 32.3 G/dL (31.0-37.0); MEAN CORPUSCULAR VOLUME 73 fL (80-100); MONOCYTES # (AUTO) 0.3 K/uL (0.1-1.0); MONOCYTES % (AUTO) 8.7 % (2.0-9.0); NEUTROPHILS # (AUTO) 2.2 K/uL (1.8-7.7); NEUTROPHILS % (AUTO) 55.9 % (40.0-70.0); PLATELET COUNT (AUTO) 207 K/uL (150-450); RED CELL DISTRIBUTION WIDTH 17.4 % (11.5-14.5)
[2021-10-15 08:04] LABS: HEMOGLOBIN A1C 10.7 % (3.8-5.6)
[2021-10-15 08:19] LABS: ALANINE AMINOTRANSFERASE 60 U/L (12-78); ALBUMIN 3.3 g/dL (3.4-5.0); ALKALINE PHOSPHATASE 102 U/L (46-116); ANION GAP 5 mmol/L (8-16); ASPARTATE AMINOTRANSFERASE 19 U/L (15-37); BILIRUBIN,TOTAL 0.3 mg/dL (0.1-1.0); CALCIUM, TOTAL 9.1 mg/dL (8.8-10.5); CARBON DIOXIDE 29 mmol/L (22-29); CHLORIDE 104 mmol/L (98-107); CHOL/HDL RATIO 5.9 (4.2-7.3); CHOLESTEROL 123 mg/dL (131-200); FREE T4 (FREE THYROXINE) 0.98 ng/dL (0.76-1.46); GLOMERULAR FILTR. RATE CALC > 60 mL/min (>60); GLUCOSE,RANDOM 275 mg/dL (70-110); HDL CHOLESTEROL 21 mg/dL (40-60); LDL CHOL (CALC.) 45 mg/dL (0-130); POTASSIUM 4.5 mmol/L (3.5-5.1); SODIUM SERUM 138 mmol/L (136-145); THYROID STIMULATING HORMONE 0.76 uIU/mL (0.36-3.74); TOTAL PROTEIN, SERUM 6.9 g/dL (6.4-8.2); TRIGLYCERIDES 283 mg/dL (15-150); UREA NITROGEN, BLOOD 16 mg/dL (7-18)
[2021-10-15] MEDS: GABAPENTIN 300 MG CAPSULE PO SCH ×3 (09:00→16:53)
[2021-10-15] MEDS: CLOPIDOGREL BISULFATE 75 MG TABLET PO SCH (09:00)
[2021-10-15] MEDS: SERTRALINE HCL 50 MG TABLET PO SCH (09:00)
[2021-10-15] MEDS: LISINOPRIL 10 MG TABLET PO SCH (09:00)
[2021-10-15] MEDS: FINASTERIDE 5 MG TABLET PO SCH (09:00)
[2021-10-15] MEDS: ATORVASTATIN CALCIUM 40 MG TABLET PO SCH (09:00)
[2021-10-15] MEDS: ISOSORBIDE MONONITRATE 60 MG ER TABLET PO SCH (09:00)
[2021-10-15] MEDS: METOPROLOL TARTRATE 25 MG TABLET PO SCH ×2 (09:00→16:53)
[2021-10-15] MEDS: ASPIRIN 81 MG DR TABLET PO SCH (09:00)
[2021-10-15] MEDS: TAMSULOSIN HCL 0.4 MG CAPSULE PO SCH (09:00)
[2021-10-15] MEDS: PANTOPRAZOLE SODIUM 40 MG DR TABLET PO SCH (09:00)
[2021-10-15] MEDS: LURASIDONE HCL 40 MG TABLET PO SCH ×2 (09:00→16:53)
[2021-10-15] MEDS: TraZODone HCL 50 MG TABLET PO SCH (21:00)
[2021-10-15] MEDS: INSULIN GLARGINE,HUM.REC.ANLOG 100 UNITS/ML SQ SCH (21:00)
[2021-10-16] MEDS: METOPROLOL TARTRATE 25 MG TABLET PO SCH ×2 (09:00→16:08)
[2021-10-16] MEDS: LURASIDONE HCL 40 MG TABLET PO SCH ×2 (09:00→16:08)
[2021-10-16] MEDS: ISOSORBIDE MONONITRATE 60 MG ER TABLET PO SCH ×2 (09:00→13:27)
[2021-10-16 10:25] VITALS: BP 139/67
[2021-10-16] MEDS: GABAPENTIN 300 MG CAPSULE PO SCH ×4 (11:11→16:09)
[2021-10-16] MEDS: LISINOPRIL 10 MG TABLET PO SCH (11:12)
[2021-10-16] MEDS: ASPIRIN 81 MG DR TABLET PO SCH (11:12)
[2021-10-16] MEDS: SERTRALINE HCL 50 MG TABLET PO SCH ×2 (11:12→12:29)
[2021-10-16] MEDS: ATORVASTATIN CALCIUM 40 MG TABLET PO SCH (11:13)
[2021-10-16] MEDS: PANTOPRAZOLE SODIUM 40 MG DR TABLET PO SCH (11:13)
[2021-10-16] MEDS: TAMSULOSIN HCL 0.4 MG CAPSULE PO SCH (11:13)
[2021-10-16] MEDS: LORazepam 2 MG TABLET PO PRN (11:16)
[2021-10-16] MEDS: HALOPERIDOL 5 MG TABLET PO PRN (11:16)
[2021-10-16] MEDS: INSULIN LISPRO 100 UNITS/ML SQ PRN ×3 (11:45→21:02)
[2021-10-16] MEDS: FINASTERIDE 5 MG TABLET PO SCH (13:28)
[2021-10-16] MEDS: CLOPIDOGREL BISULFATE 75 MG TABLET PO SCH (13:28)
[2021-10-16 17:04] VITALS: BP 111/71
[2021-10-16] MEDS: TraZODone HCL 50 MG TABLET PO SCH (20:20)
[2021-10-16] MEDS ORDERED: DEXTROSE 50%-WATER 25 GM/50 ML SYRINGE IVP PRN (20:30)
[2021-10-16] MEDS: INSULIN GLARGINE,HUM.REC.ANLOG 100 UNITS/ML SQ SCH (21:01)
[2021-10-17] MEDS: LURASIDONE HCL 60 MG TABLET PO SCH ×2 (06:46→16:45)
[2021-10-17] MEDS: INSULIN LISPRO 100 UNITS/ML SQ PRN ×4 (06:47→21:03)
[2021-10-17] MEDS: ASPIRIN 81 MG DR TABLET PO SCH (08:26)
[2021-10-17] MEDS: LISINOPRIL 10 MG TABLET PO SCH (08:27)
[2021-10-17] MEDS: SERTRALINE HCL 100 MG TABLET PO SCH (08:27)
[2021-10-17] MEDS: PANTOPRAZOLE SODIUM 40 MG DR TABLET PO SCH (08:27)
[2021-10-17] MEDS: TAMSULOSIN HCL 0.4 MG CAPSULE PO SCH (08:27)
[2021-10-17] MEDS: METOPROLOL TARTRATE 25 MG TABLET PO SCH ×2 (08:27→16:56)
[2021-10-17] MEDS: ATORVASTATIN CALCIUM 40 MG TABLET PO SCH (08:27)
[2021-10-17] MEDS: GABAPENTIN 300 MG CAPSULE PO SCH ×3 (08:27→16:45)
[2021-10-17] MEDS: CLOPIDOGREL BISULFATE 75 MG TABLET PO SCH (08:28)
[2021-10-17] MEDS: ISOSORBIDE MONONITRATE 60 MG ER TABLET PO SCH (08:28)
[2021-10-17] MEDS: FINASTERIDE 5 MG TABLET PO SCH (08:28)
[2021-10-17] MEDS: LORazepam 2 MG TABLET PO PRN (08:35)
[2021-10-17] MEDS: HALOPERIDOL 5 MG TABLET PO PRN (08:35)
[2021-10-17 11:44] LABS: GLUCOMETER DEV NAME(LOC) 3EX.; GLUCOSE,POINT OF CARE 370 MG/DL (70-110)
[2021-10-17 13:03] LABS: GLUCOMETER DEV NAME(LOC) 3EX.; GLUCOSE,POINT OF CARE 378 MG/DL (70-110)
[2021-10-17 13:31] VITALS: BP 105/59
[2021-10-17 16:59] VITALS: BP 111/59
[2021-10-17 17:06] LABS: GLUCOMETER DEV NAME(LOC) 3EX.; GLUCOSE,POINT OF CARE 317 MG/DL (70-110)
[2021-10-17] MEDS: INSULIN GLARGINE,HUM.REC.ANLOG 100 UNITS/ML SQ SCH (17:36)
[2021-10-17] MEDS: TraZODone HCL 100 MG TABLET PO SCH (20:41)
[2021-10-17 20:58] LABS: GLUCOMETER DEV NAME(LOC) 3EX.; GLUCOSE,POINT OF CARE 322 MG/DL (70-110)
[2021-10-18] MEDS ORDERED: INFLUENZA VIRUS VACCINE QVS 2021-22 (6MO+)/PF 60 MCG/0.5 ML SYRINGE IM. ONE (04:30)
[2021-10-18 05:24] LABS: GLUCOMETER DEV NAME(LOC) 3EX.; GLUCOSE,POINT OF CARE 277 MG/DL (70-110)
[2021-10-18] MEDS: LURASIDONE HCL 60 MG TABLET PO SCH ×2 (06:58→17:18)
[2021-10-18] MEDS: INSULIN LISPRO 100 UNITS/ML SQ PRN ×4 (07:02→21:38)
[2021-10-18 08:00] VITALS: BP 157/83
[2021-10-18] MEDS: INSULIN GLARGINE,HUM.REC.ANLOG 100 UNITS/ML SQ SCH ×2 (08:45→17:21)
[2021-10-18] MEDS: PANTOPRAZOLE SODIUM 40 MG DR TABLET PO SCH (08:47)
[2021-10-18] MEDS: CLOPIDOGREL BISULFATE 75 MG TABLET PO SCH (08:47)
[2021-10-18] MEDS: FINASTERIDE 5 MG TABLET PO SCH (08:47)
[2021-10-18] MEDS: LISINOPRIL 10 MG TABLET PO SCH (08:47)
[2021-10-18] MEDS: SERTRALINE HCL 100 MG TABLET PO SCH (08:47)
[2021-10-18] MEDS: METOPROLOL TARTRATE 25 MG TABLET PO SCH ×2 (08:48→17:18)
[2021-10-18] MEDS: ISOSORBIDE MONONITRATE 60 MG ER TABLET PO SCH (08:48)
[2021-10-18] MEDS: ASPIRIN 81 MG DR TABLET PO SCH (08:48)
[2021-10-18] MEDS: TAMSULOSIN HCL 0.4 MG CAPSULE PO SCH (08:48)
[2021-10-18] MEDS: GABAPENTIN 300 MG CAPSULE PO SCH ×3 (08:48→17:18)
[2021-10-18] MEDS: ATORVASTATIN CALCIUM 40 MG TABLET PO SCH (08:48)
[2021-10-18] MEDS: HALOPERIDOL 5 MG TABLET PO PRN (08:52)
[2021-10-18] MEDS: LORazepam 2 MG TABLET PO PRN (08:52)
[2021-10-18 11:30] LABS: GLUCOMETER DEV NAME(LOC) 3EX.; GLUCOSE,POINT OF CARE 294 MG/DL (70-110)
[2021-10-18 16:13] VITALS: BP 103/77
[2021-10-18 16:28] VITALS: BP 121/67
[2021-10-18 16:58] LABS: GLUCOMETER DEV NAME(LOC) 3EX.; GLUCOSE,POINT OF CARE 330 MG/DL (70-110)
[2021-10-18] MEDS ORDERED: IBUPROFEN 400 MG TABLET PO PRN (18:15)
[2021-10-18] MEDS: TraZODone HCL 100 MG TABLET PO SCH (21:00)
[2021-10-18 21:47] LABS: GLUCOMETER DEV NAME(LOC) 3EX.; GLUCOSE,POINT OF CARE 331 MG/DL (70-110)
[2021-10-19 05:40] LABS: GLUCOMETER DEV NAME(LOC) 3EX.; GLUCOSE,POINT OF CARE 361 MG/DL (70-110)
[2021-10-19] MEDS: INSULIN LISPRO 100 UNITS/ML SQ PRN ×4 (06:36→21:06)
[2021-10-19] MEDS: LURASIDONE HCL 60 MG TABLET PO SCH ×2 (07:50→16:52)
[2021-10-19 08:00] VITALS: BP 169/76
[2021-10-19] MEDS: ASPIRIN 81 MG DR TABLET PO SCH (08:54)
[2021-10-19] MEDS: PANTOPRAZOLE SODIUM 40 MG DR TABLET PO SCH (08:55)
[2021-10-19] MEDS: SERTRALINE HCL 100 MG TABLET PO SCH (08:55)
[2021-10-19] MEDS: LORazepam 2 MG TABLET PO PRN ×2 (08:55→13:01)
[2021-10-19] MEDS: ATORVASTATIN CALCIUM 40 MG TABLET PO SCH (08:55)
[2021-10-19] MEDS: METOPROLOL TARTRATE 25 MG TABLET PO SCH ×2 (08:55→16:52)
[2021-10-19] MEDS: ISOSORBIDE MONONITRATE 60 MG ER TABLET PO SCH (08:55)
[2021-10-19] MEDS: GABAPENTIN 300 MG CAPSULE PO SCH ×3 (08:55→16:52)
[2021-10-19] MEDS: LISINOPRIL 10 MG TABLET PO SCH (08:55)
[2021-10-19] MEDS: FINASTERIDE 5 MG TABLET PO SCH (08:55)
[2021-10-19] MEDS: CLOPIDOGREL BISULFATE 75 MG TABLET PO SCH (08:55)
[2021-10-19] MEDS: TAMSULOSIN HCL 0.4 MG CAPSULE PO SCH (08:55)
[2021-10-19] MEDS: HALOPERIDOL 5 MG TABLET PO PRN ×2 (08:55→13:01)
[2021-10-19] MEDS: INSULIN GLARGINE,HUM.REC.ANLOG 100 UNITS/ML SQ SCH ×2 (09:22→16:55)
[2021-10-19 11:28] LABS: GLUCOMETER DEV NAME(LOC) 3EX.; GLUCOSE,POINT OF CARE 348 MG/DL (70-110)
[2021-10-19 13:23] VITALS: BP 133/74
[2021-10-19 16:00] VITALS: BP 137/82
[2021-10-19 16:41] LABS: GLUCOMETER DEV NAME(LOC) 3EX.; GLUCOSE,POINT OF CARE 250 MG/DL (70-110)
[2021-10-19] MEDS: TraZODone HCL 100 MG TABLET PO SCH (20:59)
[2021-10-19 21:16] LABS: GLUCOMETER DEV NAME(LOC) 3EX.; GLUCOSE,POINT OF CARE 274 MG/DL (70-110)
[2021-10-20 05:23] LABS: GLUCOMETER DEV NAME(LOC) 3EX.; GLUCOSE,POINT OF CARE 300 MG/DL (70-110)
[2021-10-20] MEDS: LURASIDONE HCL 60 MG TABLET PO SCH (06:52)
[2021-10-20] MEDS: INSULIN LISPRO 100 UNITS/ML SQ PRN ×2 (07:04→11:35)
[2021-10-20 08:28] LABS: COVID AG,FIA SOURCE NASAL SWAB
[2021-10-20] MEDS: SERTRALINE HCL 100 MG TABLET PO SCH (08:47)
[2021-10-20] MEDS: LORazepam 2 MG TABLET PO PRN (08:48)
[2021-10-20] MEDS: GABAPENTIN 300 MG CAPSULE PO SCH ×2 (08:48→13:22)
[2021-10-20] MEDS: HALOPERIDOL 5 MG TABLET PO PRN (08:48)
[2021-10-20] MEDS: CLOPIDOGREL BISULFATE 75 MG TABLET PO SCH (08:48)
[2021-10-20] MEDS: LISINOPRIL 10 MG TABLET PO SCH (08:48)
[2021-10-20] MEDS: FINASTERIDE 5 MG TABLET PO SCH (08:48)
[2021-10-20] MEDS: ISOSORBIDE MONONITRATE 60 MG ER TABLET PO SCH (08:49)
[2021-10-20] MEDS: METOPROLOL TARTRATE 25 MG TABLET PO SCH (08:49)
[2021-10-20] MEDS: TAMSULOSIN HCL 0.4 MG CAPSULE PO SCH (08:49)
[2021-10-20] MEDS: ATORVASTATIN CALCIUM 40 MG TABLET PO SCH (08:49)
[2021-10-20] MEDS: ASPIRIN 81 MG DR TABLET PO SCH (08:49)
[2021-10-20 08:51] VITALS: BP 120/81
[2021-10-20] MEDS: INSULIN GLARGINE,HUM.REC.ANLOG 100 UNITS/ML SQ SCH (08:59)
[2021-10-20] MEDS ORDERED: PANTOPRAZOLE SODIUM 40 MG DR TABLET PO SCH (09:00)
[2021-10-20 11:39] LABS: GLUCOMETER DEV NAME(LOC) 3EX.; GLUCOSE,POINT OF CARE 354 MG/DL (70-110)
[2021-10-20 14:13] LABS: GLUCOMETER DEV NAME(LOC) 3EX.; GLUCOSE,POINT OF CARE 376 MG/DL (70-110)
[2021-10-20 14:13] LABS: GLUCOMETER DEV NAME(LOC) 3EX.; GLUCOSE,POINT OF CARE 304 MG/DL (70-110)
[2021-10-20 14:13] LABS: GLUCOMETER DEV NAME(LOC) 3EX.; GLUCOSE,POINT OF CARE 298 MG/DL (70-110)
[2021-10-20 16:29] VITALS: BP 128/77
== END 2021-10-20 16:45 | disposition home or self-care (01) | DRG 750 ==
LOC: B2S 12:04 → 3EI 10-16 09:24
PROVIDERS: ADMIT Psychiatry & Neurology Psychiatry; ATTEND Psychiatry & Neurology Psychiatry
PROC: 5A09357 Assistance with Respiratory Ventilation, Less than 24 Consecutive Hours, Continuous Positive Airway Pressure (ICD-10-PCS; principal; 2021-10-17)
DX: F25.1 Schizoaffective disorder, depressive type (principal); E11.9 Type 2 diabetes mellitus without complications; R45.851 Suicidal ideations; E78.5 Hyperlipidemia, unspecified; F10.10 Alcohol abuse, uncomplicated; I10 Essential (primary) hypertension; I25.10 Atherosclerotic heart disease of native coronary artery without angina pectoris; G89.29 Other chronic pain; Z20.822 Contact with and (suspected) exposure to COVID-19; M54.9 Dorsalgia, unspecified; K21.9 Gastro-esophageal reflux disease without esophagitis; N40.0 Benign prostatic hyperplasia without lower urinary tract symptoms; Z59.00 Homelessness unspecified; Z79.4 Long term (current) use of insulin; I25.2 Old myocardial infarction; Z91.51 Personal history of suicidal behavior; Z91.81 History of falling; Z95.5 Presence of coronary angioplasty implant and graft; Z79.899 Other long term (current) drug therapy; Z79.82 Long term (current) use of aspirin; Z88.8 Allergy status to other drugs, medicaments and biological substances
CPT/HCPCS: 80053; 80061; 82962; 83036; 84439; 84443; 84484; 85025; 87081; 93005; 94660; G0480; J1815; Q9967

== ENCOUNTER 2021-10-14 19:52 | Emergency (ER) | payer MEDICAID, OTHER ==
[~2021-10-14] VITALS: Ht 188 cm; Wt 111.8 kg
[2021-10-14] MEDS ORDERED: NITROGLYCERIN 0.4 MG SUBLINGUAL TABLET #25 SL ONE (21:00)
[2021-10-14] MEDS ORDERED: ASPIRIN 325 MG TABLET PO ONE (21:00)
[2021-10-14 21:03] LABS: BASOPHILS % (AUTO) 0.6 % (0.0-2.0); EOSINOPHILS % (AUTO) 2.7 % (1.0-6.0); HEMATOCRIT 33.4 % (41-53); HEMOGLOBIN 10.8 g/dL (13.5-17.5); LYMPHOCYTES # (AUTO) 1.2 K/uL (1.0-4.8); LYMPHOCYTES % (AUTO) 23.9 % (22.0-44.0); MEAN CORPUSCULAR HEMOGLOBIN 24.1 pg (26.0-34.0); MEAN CORPUSCULAR HGB CONC 32.3 G/dL (31.0-37.0); MEAN CORPUSCULAR VOLUME 75 fL (80-100); MONOCYTES # (AUTO) 0.4 K/uL (0.1-1.0); MONOCYTES % (AUTO) 7.7 % (2.0-9.0); NEUTROPHILS # (AUTO) 3.4 K/uL (1.8-7.7); NEUTROPHILS % (AUTO) 65.1 % (40.0-70.0); PLATELET COUNT (AUTO) 214 K/uL (150-450); RED BLOOD CELL COUNT(AUTO) 4.48 MIL/uL (4.50-5.90); RED CELL DISTRIBUTION WIDTH 17.6 % (11.5-14.5)
[2021-10-14 21:12] LABS: ANION GAP 5 mmol/L (8-16); CALCIUM, TOTAL 9.2 mg/dL (8.8-10.5); CARBON DIOXIDE 26 mmol/L (22-29); CHLORIDE 103 mmol/L (98-107); CREATININE 0.93 mg/dL (0.60-1.30); GLOMERULAR FILTR. RATE CALC > 60 mL/min (>60); GLUCOSE,RANDOM 340 mg/dL (70-110); POTASSIUM 4.5 mmol/L (3.5-5.1); SODIUM SERUM 134 mmol/L (136-145); UREA NITROGEN, BLOOD 16 mg/dL (7-18)
[2021-10-14 21:17] LABS: ALANINE AMINOTRANSFERASE 71 U/L (12-78); ALBUMIN 3.3 g/dL (3.4-5.0); ALKALINE PHOSPHATASE 114 U/L (46-116); BILIRUBIN,TOTAL 0.2 mg/dL (0.1-1.0); TOTAL PROTEIN, SERUM 7.1 g/dL (6.4-8.2)
[2021-10-14 21:29] LABS: ASPARTATE AMINOTRANSFERASE 11 U/L (15-37)
[2021-10-14] MEDS ORDERED: IBUPROFEN 600 MG TABLET ONE (22:55)
[2021-10-14] MEDS ORDERED: IBUPROFEN 600 MG TABLET PO ONE (23:00)
[2021-10-14 23:42] LABS: APPEARANCE,URINE CLEAR (CLEAR); BILIRUBIN,URINE NEGATIVE (NEGATIVE); GLUCOSE, URINE (UA) >=1000 mg/dL (NEGATIVE); KETONES,URINE NEGATIVE (NEGATIVE); LEUKOCYTE ESTERASE ,URINE NEGATIVE (NEGATIVE); NITRATE,URINE NEGATIVE (NEGATIVE); OCCULT BLOOD,URINE NEGATIVE (NEGATIVE); PH,URINE 5.5 (5.0-8.0); PROTEIN,URINE NEGATIVE (NEGATIVE); UROBILINOGEN,URINE 0.2 mg/dL (<=1.0)
[2021-10-14 23:44] LABS: BACTERIA,URINE Rare /HPF (None Seen); RBC,URINE 0-2 /HPF (0-2); WBC,URINE 0-2 /HPF (0-5)
[2021-10-15 00:53] LABS: GLUCOSE,POINT OF CARE 276 MG/DL (70-110)
[2021-10-15] MEDS ORDERED: IBUPROFEN 400 MG TABLET PO ONE (08:30)
[2021-10-15] MEDS ORDERED: LORazepam 1 MG TABLET PO PRN (16:45)
[2021-10-15] MEDS ORDERED: MELATONIN 5 MG TABLET PO ONE (21:15)
[2021-10-16] MEDS ORDERED: LORazepam 1 MG TABLET PO PRN (05:00)
[2021-10-16 07:45] VITALS: BP 148/81
== END 2021-10-16 10:17 | disposition home or self-care (01) ==
LOC: EMS 19:58
DX: S09.90XA Unspecified injury of head, initial encounter (principal); R55 Syncope and collapse; R07.89 Other chest pain; I10 Essential (primary) hypertension; E11.9 Type 2 diabetes mellitus without complications; E78.00 Pure hypercholesterolemia, unspecified; I25.2 Old myocardial infarction; F41.9 Anxiety disorder, unspecified; Z88.8 Allergy status to other drugs, medicaments and biological substances; Z79.899 Other long term (current) drug therapy
CPT/HCPCS: 36415; 70450; 71045; 80053; 81001; 82962; 84484; 85025; 85379; 93005; 99285; Q9967

== ENCOUNTER 2022-02-14 17:24 | Inpatient (IN) | payer OTHER ==
[~2022-02-14] VITALS: Ht 188 cm; Wt 118.9 kg
[2022-02-14] MEDS ORDERED: NITROGLYCERIN 0.4 MG SUBLINGUAL TABLET #25 SL ONE (19:15)
[2022-02-14] MEDS ORDERED: OCTREOTIDE ACETATE 100 MCG/ML VIAL IVP ONE (19:30)
[2022-02-14] MEDS ORDERED: DEXTROSE 50%-WATER 25 GM/50 ML SYRINGE IVP ONE ×2 (19:30→21:30)
[2022-02-14 19:36] LABS: GLUCOMETER DEV NAME(LOC) ERT.5; GLUCOSE,POINT OF CARE 43 MG/DL (70-110)
[2022-02-14 20:06] LABS: BASOPHILS % (AUTO) 0.4 % (0.0-2.0); EOSINOPHILS % (AUTO) 2.3 % (1.0-6.0); HEMOGLOBIN 10.3 g/dL (13.5-17.5); LYMPHOCYTES # (AUTO) 2.8 K/uL (1.0-4.8); LYMPHOCYTES % (AUTO) 39.3 % (22.0-44.0); MEAN CORPUSCULAR HEMOGLOBIN 22.3 pg (26.0-34.0); MEAN CORPUSCULAR HGB CONC 31.4 G/dL (31.0-37.0); MEAN CORPUSCULAR VOLUME 71 fL (80-100); MONOCYTES # (AUTO) 0.5 K/uL (0.1-1.0); MONOCYTES % (AUTO) 7.4 % (2.0-9.0); NEUTROPHILS # (AUTO) 3.6 K/uL (1.8-7.7); NEUTROPHILS % (AUTO) 50.6 % (40.0-70.0); PLATELET COUNT (AUTO) 308 K/uL (150-450); RED BLOOD CELL COUNT(AUTO) 4.63 MIL/uL (4.50-5.90); RED CELL DISTRIBUTION WIDTH 19.1 % (11.5-14.5)
[2022-02-14 20:11] LABS: GLUCOMETER DEV NAME(LOC) ERT.5; GLUCOSE,POINT OF CARE 57 MG/DL (70-110)
[2022-02-14 20:15] LABS: ANION GAP 8 mmol/L (8-16); CALCIUM, TOTAL 9.1 mg/dL (8.8-10.5); CARBON DIOXIDE 28 mmol/L (22-29); CHLORIDE 102 mmol/L (98-107); CREATININE 0.81 mg/dL (0.60-1.30); GLOMERULAR FILTR. RATE CALC > 60 mL/min (>60); GLUCOSE,RANDOM 71 mg/dL (70-110); POTASSIUM 3.1 mmol/L (3.5-5.1); SODIUM SERUM 138 mmol/L (136-145); UREA NITROGEN, BLOOD 14 mg/dL (7-18)
[2022-02-14] MEDS ORDERED: PROMETHAZINE HCL 25 MG TABLET PO ONE (20:15)
[2022-02-14 20:20] LABS: ALANINE AMINOTRANSFERASE 39 U/L (12-78); ALBUMIN 3.7 g/dL (3.4-5.0); ALKALINE PHOSPHATASE 117 U/L (46-116); ASPARTATE AMINOTRANSFERASE 16 U/L (15-37); BILIRUBIN,TOTAL 0.2 mg/dL (0.1-1.0); LIPASE 76 U/L (73-393); TOTAL PROTEIN, SERUM 7.6 g/dL (6.4-8.2)
[2022-02-14 20:31] LABS: GLUCOSE,POINT OF CARE 132 MG/DL (70-110)
[2022-02-14] MEDS ORDERED: DEXTROSE 10%-WATER 1,000 ML IV ONE (20:45)
[2022-02-14] MEDS ORDERED: POTASSIUM CHLORIDE 10% 40 MEQ/30 ML LIQUID UDCUP PO ONE (20:45)
[2022-02-14 20:51] LABS: GLUCOSE,POINT OF CARE 69 MG/DL (70-110)
[2022-02-14 21:16] LABS: GLUCOSE,POINT OF CARE 83 MG/DL (70-110)
[2022-02-14 22:11] LABS: GLUCOSE,POINT OF CARE 105 MG/DL (70-110)
[2022-02-14 22:11] LABS: GLUCOSE,POINT OF CARE 36 MG/DL (70-110)
[2022-02-14 22:23] LABS: COVID AG,FIA SOURCE NASAL SWAB
[2022-02-14] MEDS ORDERED: OxyCODONE HCL/ACETAMINOPHEN 5-325 MG TABLET PO PRN (22:30)
[2022-02-14] MEDS ORDERED: INSULIN LISPRO 100 UNITS/ML SQ PRN (22:30)
[2022-02-14] MEDS ORDERED: ZOLPIDEM TARTRATE 5 MG TABLET PO PRN (22:30)
[2022-02-14 22:56] LABS: GLUCOSE,POINT OF CARE 90 MG/DL (70-110)
[2022-02-15] VITALS (7 sets, daily range): BP systolic 133–159; BP diastolic 65–85
[2022-02-15] MEDS: HEPARIN SODIUM,PORCINE 5,000 UNITS/ML VIAL SQ SCH ×4 (00:06→23:34)
[2022-02-15] MEDS: MORPHINE SULFATE 2 MG/ML SYRINGE IVP PRN ×4 (00:31→20:59)
[2022-02-15 01:50] LABS: GLUCOMETER DEV NAME(LOC) 5S.2B; GLUCOSE,POINT OF CARE 79 MG/DL (70-110)
[2022-02-15 03:31] LABS: GLUCOMETER DEV NAME(LOC) 5N.1C; GLUCOSE,POINT OF CARE 61 MG/DL (70-110)
[2022-02-15 04:21] LABS: GLUCOMETER DEV NAME(LOC) 5N.1C; GLUCOSE,POINT OF CARE 86 MG/DL (70-110)
[2022-02-15] MEDS ORDERED: PNEUMOCOCCAL VACCINE POLYVALENT 0.5 ML VIAL [PPSV23] IM. ONE (04:30)
[2022-02-15] MEDS: DEXTROSE 50%-WATER 25 GM/50 ML SYRINGE IVP PRN ×3 (05:54→11:44)
[2022-02-15 06:51] LABS: GLUCOMETER DEV NAME(LOC) 5S.2B; GLUCOSE,POINT OF CARE 56 MG/DL (70-110)
[2022-02-15 06:51] LABS: GLUCOMETER DEV NAME(LOC) 5S.2B; GLUCOSE,POINT OF CARE 102 MG/DL (70-110)
[2022-02-15 08:26] LABS: ANION GAP 9 mmol/L (8-16); CALCIUM, TOTAL 8.4 mg/dL (8.8-10.5); CARBON DIOXIDE 27 mmol/L (22-29); CHLORIDE 104 mmol/L (98-107); CREATININE 0.58 mg/dL (0.60-1.30); GLOMERULAR FILTR. RATE CALC > 60 mL/min (>60); GLUCOSE,RANDOM 63 mg/dL (70-110); POTASSIUM 3.4 mmol/L (3.5-5.1); SODIUM SERUM 140 mmol/L (136-145); UREA NITROGEN, BLOOD 9 mg/dL (7-18)
[2022-02-15] MEDS: ATORVASTATIN CALCIUM 40 MG TABLET PO SCH (08:27)
[2022-02-15] MEDS: CARVEDILOL 6.25 MG TABLET PO SCH ×2 (08:27→20:58)
[2022-02-15] MEDS: FAMOTIDINE 20 MG TABLET PO SCH (08:27)
[2022-02-15] MEDS: DOCUSATE SODIUM 100 MG CAPSULE PO SCH ×2 (08:29→21:00)
[2022-02-15] MEDS ORDERED: ASPIRIN 81 MG CHEWABLE TABLET PO SCH (09:00)
[2022-02-15 09:06] LABS: GLUCOMETER DEV NAME(LOC) 5S.2B; GLUCOSE,POINT OF CARE 50 MG/DL (70-110)
[2022-02-15 09:06] LABS: GLUCOMETER DEV NAME(LOC) 5S.2B; GLUCOSE,POINT OF CARE 145 MG/DL (70-110)
[2022-02-15 12:01] LABS: GLUCOMETER DEV NAME(LOC) 5N.1C; GLUCOSE,POINT OF CARE 45 MG/DL (70-110)
[2022-02-15 12:41] LABS: GLUCOMETER DEV NAME(LOC) 5S.2B; GLUCOSE,POINT OF CARE 113 MG/DL (70-110)
[2022-02-15] MEDS ORDERED: POTASSIUM CHLORIDE 20 MEQ ER TABLET PO ONE (13:30)
[2022-02-15] MEDS: DEXTROSE 10%-WATER 1,000 ML IV SCH (13:36)
[2022-02-15 15:56] LABS: GLUCOMETER DEV NAME(LOC) 5S.2B; GLUCOSE,POINT OF CARE 117 MG/DL (70-110)
[2022-02-15 18:06] LABS: GLUCOMETER DEV NAME(LOC) 5N.1C; GLUCOSE,POINT OF CARE 177 MG/DL (70-110)
[2022-02-15] MEDS ORDERED: MELA3TAB43 PO (19:39)
[2022-02-15] MEDS ORDERED: MELA5TAB21 PO (19:40)
[2022-02-15] MEDS: MELATONIN 5 MG TABLET PO PRN (20:58)
[2022-02-16 00:21] LABS: GLUCOMETER DEV NAME(LOC) 5N.1C; GLUCOSE,POINT OF CARE 142 MG/DL (70-110)
[2022-02-16 00:21] LABS: GLUCOMETER DEV NAME(LOC) 5N.1C; GLUCOSE,POINT OF CARE 202 MG/DL (70-110)
[2022-02-16] MEDS: DEXTROSE 10%-WATER 1,000 ML IV SCH ×2 (02:51→16:27)
[2022-02-16] MEDS: MORPHINE SULFATE 2 MG/ML SYRINGE IVP PRN ×4 (02:52→21:23)
[2022-02-16 04:44] VITALS: BP 134/74
[2022-02-16] MEDS: DEXTROSE 50%-WATER 25 GM/50 ML SYRINGE IVP PRN (06:11)
[2022-02-16] MEDS ORDERED: ISOS30TA92 PO (06:24)
[2022-02-16] MEDS ORDERED: FINA-27 PO (06:31)
[2022-02-16] MEDS ORDERED: HYDR-4584 PO (06:31)
[2022-02-16] MEDS ORDERED: VERA-25 PO (06:31)
[2022-02-16] MEDS ORDERED: INSLAN SQ (06:31)
[2022-02-16] MEDS ORDERED: HALO10 PO (06:31)
[2022-02-16] MEDS ORDERED: BENZ2TAB76 PO (06:31)
[2022-02-16] MEDS ORDERED: DIVA-80 PO (06:31)
[2022-02-16] MEDS ORDERED: TAMS-13 PO (06:31)
[2022-02-16] MEDS ORDERED: NITR0.4T50 SL (06:31)
[2022-02-16] MEDS ORDERED: BUSP10TA23 PO (06:32)
[2022-02-16] MEDS ORDERED: ARIP2TAB3 PO (06:32)
[2022-02-16 07:08] VITALS: BP 118/69
[2022-02-16] MEDS: CLOPIDOGREL BISULFATE 75 MG TABLET PO SCH (08:56)
[2022-02-16] MEDS: ISOSORBIDE MONONITRATE 60 MG ER TABLET PO SCH (08:56)
[2022-02-16] MEDS: CARVEDILOL 6.25 MG TABLET PO SCH ×2 (08:57→20:33)
[2022-02-16] MEDS: ASPIRIN 81 MG DR TABLET PO SCH (08:57)
[2022-02-16] MEDS: ATORVASTATIN CALCIUM 40 MG TABLET PO SCH (08:57)
[2022-02-16] MEDS: FINASTERIDE 5 MG TABLET PO SCH (08:57)
[2022-02-16] MEDS: GABAPENTIN 300 MG CAPSULE PO SCH ×3 (08:57→20:33)
[2022-02-16] MEDS: FAMOTIDINE 20 MG TABLET PO SCH (08:57)
[2022-02-16] MEDS: SERTRALINE HCL 100 MG TABLET PO SCH (08:58)
[2022-02-16] MEDS: TAMSULOSIN HCL 0.4 MG CAPSULE PO SCH (08:58)
[2022-02-16] MEDS: LISINOPRIL 10 MG TABLET PO SCH (08:58)
[2022-02-16] MEDS: HEPARIN SODIUM,PORCINE 5,000 UNITS/ML VIAL SQ SCH ×2 (08:58→15:11)
[2022-02-16] MEDS: DOCUSATE SODIUM 100 MG CAPSULE PO SCH ×2 (08:58→20:33)
[2022-02-16 09:37] LABS: GLUCOMETER DEV NAME(LOC) 5N.1C; GLUCOSE,POINT OF CARE 44 MG/DL (70-110)
[2022-02-16 09:37] LABS: GLUCOMETER DEV NAME(LOC) 5N.1C; GLUCOSE,POINT OF CARE 113 MG/DL (70-110)
[2022-02-16 09:56] LABS: GLUCOMETER DEV NAME(LOC) 5S.2B; GLUCOSE,POINT OF CARE 202 MG/DL (70-110)
[2022-02-16 11:11] VITALS: BP 109/73
[2022-02-16 11:36] LABS: GLUCOMETER DEV NAME(LOC) 5S.2B; GLUCOSE,POINT OF CARE 177 MG/DL (70-110)
[2022-02-16 15:35] VITALS: BP 107/50
[2022-02-16 18:31] LABS: GLUCOMETER DEV NAME(LOC) 5N.1C; GLUCOSE,POINT OF CARE 241 MG/DL (70-110)
[2022-02-16 19:58] VITALS: BP 119/63
[2022-02-16] MEDS: MELATONIN 5 MG TABLET PO PRN (20:33)
[2022-02-16] MEDS ORDERED: TraZODone HCL 100 MG TABLET PO SCH (21:00)
[2022-02-16 22:51] LABS: GLUCOMETER DEV NAME(LOC) 5S.2B; GLUCOSE,POINT OF CARE 237 MG/DL (70-110)
[2022-02-17] VITALS: BP 128/68
[2022-02-17] MEDS: HEPARIN SODIUM,PORCINE 5,000 UNITS/ML VIAL SQ SCH ×2 (00:13→08:22)
[2022-02-17 01:55] LABS: GLUCOMETER DEV NAME(LOC) 6N.1; GLUCOSE,POINT OF CARE 186 MG/DL (70-110)
[2022-02-17] MEDS: MORPHINE SULFATE 2 MG/ML SYRINGE IVP PRN ×2 (03:38→09:43)
[2022-02-17 05:05] VITALS: BP 135/75
[2022-02-17 06:42] LABS: GLUCOMETER DEV NAME(LOC) 6N.1; GLUCOSE,POINT OF CARE 179 MG/DL (70-110)
[2022-02-17 08:08] VITALS: BP 138/75
[2022-02-17] MEDS: ATORVASTATIN CALCIUM 40 MG TABLET PO SCH (08:23)
[2022-02-17] MEDS: SERTRALINE HCL 100 MG TABLET PO SCH (08:23)
[2022-02-17] MEDS: FAMOTIDINE 20 MG TABLET PO SCH (08:23)
[2022-02-17] MEDS: ASPIRIN 81 MG DR TABLET PO SCH (08:23)
[2022-02-17] MEDS: LISINOPRIL 10 MG TABLET PO SCH (08:23)
[2022-02-17] MEDS: TAMSULOSIN HCL 0.4 MG CAPSULE PO SCH (08:23)
[2022-02-17] MEDS: DOCUSATE SODIUM 100 MG CAPSULE PO SCH (08:23)
[2022-02-17] MEDS: CARVEDILOL 6.25 MG TABLET PO SCH (08:24)
[2022-02-17] MEDS: CLOPIDOGREL BISULFATE 75 MG TABLET PO SCH (08:24)
[2022-02-17] MEDS: GABAPENTIN 300 MG CAPSULE PO SCH (08:24)
[2022-02-17] MEDS: ISOSORBIDE MONONITRATE 60 MG ER TABLET PO SCH (09:42)
[2022-02-17] MEDS: FINASTERIDE 5 MG TABLET PO SCH (09:42)
[2022-02-17] MEDS ORDERED: DEXTROSE 50%-WATER 25 GM/50 ML SYRINGE IVP PRN (11:45)
[2022-02-17] MEDS ORDERED: INSULIN LISPRO 100 UNITS/ML SQ PRN (11:45)
[2022-02-17 12:31] LABS: GLUCOMETER DEV NAME(LOC) 6N.1; GLUCOSE,POINT OF CARE 283 MG/DL (70-110)
[2022-02-17 14:51] LABS: GLUCOMETER DEV NAME(LOC) 6N.2; GLUCOSE,POINT OF CARE 232 MG/DL (70-110)
== END 2022-02-17 14:15 | disposition home or self-care (01) | DRG 639 ==
LOC: EMS 17:24 → 5S 22:00 → UNDOADMIN 22:52 → 5S 22:52 → 6S 02-16 23:15 → UNDODISIN 02-17 14:15
PROVIDERS: ADMIT Internal Medicine; ATTEND Internal Medicine
DX: E11.649 Type 2 diabetes mellitus with hypoglycemia without coma (principal); I11.9 Hypertensive heart disease without heart failure; D64.9 Anemia, unspecified; F20.9 Schizophrenia, unspecified; I25.10 Atherosclerotic heart disease of native coronary artery without angina pectoris; I65.29 Occlusion and stenosis of unspecified carotid artery; E78.5 Hyperlipidemia, unspecified; N40.0 Benign prostatic hyperplasia without lower urinary tract symptoms; Z20.822 Contact with and (suspected) exposure to COVID-19; Z95.5 Presence of coronary angioplasty implant and graft; Z79.4 Long term (current) use of insulin; Z86.73 Personal history of transient ischemic attack (TIA), and cerebral infarction without residual deficits; Z90.49 Acquired absence of other specified parts of digestive tract; Z82.49 Family history of ischemic heart disease and other diseases of the circulatory system; Z83.3 Family history of diabetes mellitus; Z91.19 Patient's noncompliance with other medical treatment and regimen; Z88.8 Allergy status to other drugs, medicaments and biological substances
CPT/HCPCS: 71045; 76700; 80048; 80053; 82533; 82962; 83690; 83735; 84484; 85025; 87081; 93005; 93306; 99285; G0378; J1644; J2270; J2354; Q9967; 36415-L1; 36415-TC

== ENCOUNTER 2022-02-18 18:26 | Inpatient (IN) | payer MEDICAID, OTHER ==
[~2022-02-18] VITALS: Ht 188 cm; Wt 110.6 kg
[~2022-02-18 18:26] MED LIST changes: +ARIP2TAB3 PO; +BENZ2TAB76 PO; +BUSP10TA23 PO; +DIVA-80 PO; +HALO10 PO; +HYDR-4584 PO; -INSLAN SQ; +ISOS30TA92 PO; -ISOS60TA77 PO; +MELA5TAB21 PO; +NITR0.4T50 SL
[2022-02-18 19:25] LABS: GLUCOSE,POINT OF CARE 324 MG/DL (70-110)
[2022-02-18 20:30] LABS: AMPHET/METH SCREEN,URINE NEGATIVE (NEGATIVE); BARBITURATE SCREEN, URINE NEGATIVE (NEGATIVE); BENZODIAZEPINES SCREEN,URINE NEGATIVE (NEGATIVE); CANNABINOID SCREEN,URINE NEGATIVE (NEGATIVE); COCAINE SCREEN,URINE NEGATIVE (NEGATIVE); METHADONE SCREEN, URINE NEGATIVE (NEGATIVE); OPIATE SCREEN,URINE NEGATIVE (NEGATIVE)
[2022-02-18 20:31] LABS: PHENCYCLIDINE SCREEN,URINE NEGATIVE (NEGATIVE)
[2022-02-18 20:59] LABS: BASOPHILS % (AUTO) 0.5 % (0.0-2.0); EOSINOPHILS % (AUTO) 1.6 % (1.0-6.0); HEMATOCRIT 31.5 % (41-53); LYMPHOCYTES # (AUTO) 1.5 K/uL (1.0-4.8); MEAN CORPUSCULAR HEMOGLOBIN 22.4 pg (26.0-34.0); MEAN CORPUSCULAR HGB CONC 31.7 G/dL (31.0-37.0); MEAN CORPUSCULAR VOLUME 71 fL (80-100); MONOCYTES # (AUTO) 0.6 K/uL (0.1-1.0); MONOCYTES % (AUTO) 8.9 % (2.0-9.0); NEUTROPHILS # (AUTO) 4.3 K/uL (1.8-7.7); PLATELET COUNT (AUTO) 282 K/uL (150-450); RED BLOOD CELL COUNT(AUTO) 4.45 MIL/uL (4.50-5.90); RED CELL DISTRIBUTION WIDTH 19.4 % (11.5-14.5)
[2022-02-18 21:07] LABS: ANION GAP 9 mmol/L (8-16); CALCIUM, TOTAL 8.8 mg/dL (8.8-10.5); CARBON DIOXIDE 27 mmol/L (22-29); CHLORIDE 101 mmol/L (98-107); CREATININE 0.82 mg/dL (0.60-1.30); GLOMERULAR FILTR. RATE CALC > 60 mL/min (>60); GLUCOSE,RANDOM 278 mg/dL (70-110); POTASSIUM 4.2 mmol/L (3.5-5.1); SODIUM SERUM 137 mmol/L (136-145); UREA NITROGEN, BLOOD 13 mg/dL (7-18)
[2022-02-18 21:12] LABS: ALANINE AMINOTRANSFERASE 41 U/L (12-78); ALBUMIN 3.4 g/dL (3.4-5.0); ALKALINE PHOSPHATASE 110 U/L (46-116); ASPARTATE AMINOTRANSFERASE 18 U/L (15-37); B-TYPE NATRIURETIC PEPTIDE 57 pg/mL (0-100); BILIRUBIN,TOTAL 0.2 mg/dL (0.1-1.0); LIPASE 100 U/L (73-393); TOTAL PROTEIN, SERUM 7.2 g/dL (6.4-8.2)
[2022-02-18] MEDS ORDERED: DiphenhydrAMINE HCL 25 MG CAPSULE PO ONE (22:00)
[2022-02-18] MEDS ORDERED: QUEtiapine FUMARATE 100 MG TABLET PO ONE (22:00)
[2022-02-18] MEDS ORDERED: ZOLPIDEM TARTRATE 10 MG TABLET PO PRN (22:00)
[2022-02-18] MEDS ORDERED: MELATONIN 3 MG TABLET PO ONE (22:00)
[2022-02-18] MEDS ORDERED: LORazepam 2 MG TABLET PO ONE (22:00)
[2022-02-19] MEDS ORDERED: PNEUMOCOCCAL VACCINE POLYVALENT 0.5 ML VIAL [PPSV23] IM. ONE (04:30)
[2022-02-19 05:26] LABS: COVID AG,FIA SOURCE NASAL SWAB
[2022-02-19 05:44] VITALS: BP 140/88
[2022-02-19] MEDS ORDERED: DEXTROSE 50%-WATER 25 GM/50 ML SYRINGE IVP PRN (07:15)
[2022-02-19] MEDS ORDERED: PETROLATUM,WHITE 28 GM JELLY TP PRN (07:15)
[2022-02-19] MEDS ORDERED: GuaiFENesin/D-METHORPHAN [SUGAR-FREE] 200-20MG/10 ML SYRUP UDCUP PO PRN (07:15)
[2022-02-19] MEDS ORDERED: LOPERAMIDE HCL 2 MG CAPSULE PO PRN (07:15)
[2022-02-19] MEDS ORDERED: MAGNESIUM HYDROXIDE SUSPENSION 30 ML UDCUP PO PRN (07:15)
[2022-02-19] MEDS ORDERED: NICOTINE 14 MG/24 HOUR PATCH TD PRN (07:15)
[2022-02-19] MEDS ORDERED: ALBUTEROL SULFATE HFA 90 MCG/PUFF 8 GM INHALER IH PRN (07:15)
[2022-02-19] MEDS ORDERED: DOCUSATE SODIUM 100 MG CAPSULE PO PRN (07:15)
[2022-02-19] MEDS: ISOSORBIDE MONONITRATE 30 MG ER TABLET PO SCH (08:42)
[2022-02-19] MEDS: FINASTERIDE 5 MG TABLET PO SCH (08:42)
[2022-02-19] MEDS: CLOPIDOGREL BISULFATE 75 MG TABLET PO SCH (08:42)
[2022-02-19] MEDS: ATORVASTATIN CALCIUM 40 MG TABLET PO SCH (08:44)
[2022-02-19] MEDS: METOPROLOL TARTRATE 25 MG TABLET PO SCH ×2 (08:44→16:04)
[2022-02-19] MEDS: ASPIRIN 81 MG DR TABLET PO SCH (08:44)
[2022-02-19] MEDS: TAMSULOSIN HCL 0.4 MG CAPSULE PO SCH (08:45)
[2022-02-19 09:21] VITALS: BP 158/76
[2022-02-19] MEDS ORDERED: METO25XL PO (11:36)
[2022-02-19] MEDS ORDERED: LISI-892 PO (11:36)
[2022-02-19] MEDS ORDERED: LURA80TA2 PO (11:36)
[2022-02-19] MEDS ORDERED: PANT-31 PO (11:36)
[2022-02-19] MEDS: BENZTROPINE MESYLATE 2 MG TABLET PO SCH (12:47)
[2022-02-19] MEDS: SERTRALINE HCL 100 MG TABLET PO SCH (12:47)
[2022-02-19] MEDS: DIVALPROEX SODIUM 500 MG ER TABLET PO SCH (12:47)
[2022-02-19] MEDS: INSULIN LISPRO 100 UNITS/ML SQ PRN ×3 (13:02→21:03)
[2022-02-19 13:16] LABS: GLUCOMETER DEV NAME(LOC) 3EX.; GLUCOSE,POINT OF CARE 382 MG/DL (70-110)
[2022-02-19] MEDS: LURASIDONE HCL 60 MG TABLET PO SCH (16:04)
[2022-02-19] MEDS: BusPIRone HCL 10 MG TABLET PO SCH (16:04)
[2022-02-19 16:41] LABS: GLUCOMETER DEV NAME(LOC) 3EX.; GLUCOSE,POINT OF CARE 267 MG/DL (70-110)
[2022-02-19 17:17] VITALS: BP 111/69
[2022-02-19] MEDS: TraZODone HCL 100 MG TABLET PO SCH ×2 (20:10→20:46)
[2022-02-19 21:06] LABS: GLUCOMETER DEV NAME(LOC) 3EX.; GLUCOSE,POINT OF CARE 347 MG/DL (70-110)
[2022-02-20 00:15] VITALS: BP 145/80
[2022-02-20] MEDS: LORazepam 2 MG TABLET PO PRN ×2 (00:33→09:04)
[2022-02-20 06:31] LABS: GLUCOMETER DEV NAME(LOC) 3EX.; GLUCOSE,POINT OF CARE 314 MG/DL (70-110)
[2022-02-20] MEDS: LURASIDONE HCL 60 MG TABLET PO SCH ×2 (06:56→16:05)
[2022-02-20] MEDS: INSULIN LISPRO 100 UNITS/ML SQ PRN ×3 (06:57→17:01)
[2022-02-20] MEDS: FINASTERIDE 5 MG TABLET PO SCH (08:21)
[2022-02-20] MEDS: ISOSORBIDE MONONITRATE 30 MG ER TABLET PO SCH (08:21)
[2022-02-20] MEDS: ATORVASTATIN CALCIUM 40 MG TABLET PO SCH (08:21)
[2022-02-20] MEDS: METOPROLOL TARTRATE 25 MG TABLET PO SCH ×2 (08:21→16:05)
[2022-02-20] MEDS: BusPIRone HCL 10 MG TABLET PO SCH ×2 (08:22→16:05)
[2022-02-20] MEDS: BENZTROPINE MESYLATE 2 MG TABLET PO SCH (08:22)
[2022-02-20] MEDS: TAMSULOSIN HCL 0.4 MG CAPSULE PO SCH (08:22)
[2022-02-20] MEDS: CLOPIDOGREL BISULFATE 75 MG TABLET PO SCH (08:22)
[2022-02-20] MEDS: ASPIRIN 81 MG DR TABLET PO SCH (08:22)
[2022-02-20] MEDS: DIVALPROEX SODIUM 500 MG ER TABLET PO SCH (08:22)
[2022-02-20] MEDS: SERTRALINE HCL 100 MG TABLET PO SCH (08:23)
[2022-02-20 08:50] VITALS: BP 140/81
[2022-02-20] MEDS: HALOPERIDOL 5 MG TABLET PO PRN (09:04)
[2022-02-20 11:41] LABS: GLUCOMETER DEV NAME(LOC) 3EX.; GLUCOSE,POINT OF CARE 291 MG/DL (70-110)
[2022-02-20 16:16] LABS: GLUCOMETER DEV NAME(LOC) 3EX.; GLUCOSE,POINT OF CARE 330 MG/DL (70-110)
[2022-02-20 16:40] VITALS: BP 153/73
[2022-02-20] MEDS: MELATONIN 5 MG TABLET PO SCH ×2 (20:03→20:56)
[2022-02-20] MEDS: TraZODone HCL 100 MG TABLET PO SCH ×2 (20:03→20:56)
[2022-02-20 21:21] LABS: GLUCOMETER DEV NAME(LOC) 3EX.; GLUCOSE,POINT OF CARE 346 MG/DL (70-110)
[2022-02-21 04:45] VITALS: BP 140/80
[2022-02-21] MEDS: LORazepam 2 MG TABLET PO PRN ×2 (04:54→12:32)
[2022-02-21 05:57] LABS: GLUCOMETER DEV NAME(LOC) 3EX.; GLUCOSE,POINT OF CARE 304 MG/DL (70-110)
[2022-02-21] MEDS: LURASIDONE HCL 60 MG TABLET PO SCH ×2 (06:54→16:38)
[2022-02-21] MEDS: INSULIN LISPRO 100 UNITS/ML SQ PRN ×4 (07:00→20:08)
[2022-02-21] MEDS: ISOSORBIDE MONONITRATE 30 MG ER TABLET PO SCH (08:08)
[2022-02-21] MEDS: METOPROLOL TARTRATE 25 MG TABLET PO SCH ×2 (08:08→16:12)
[2022-02-21] MEDS: BusPIRone HCL 10 MG TABLET PO SCH ×2 (08:08→16:12)
[2022-02-21] MEDS: ASPIRIN 81 MG DR TABLET PO SCH (08:08)
[2022-02-21] MEDS: DIVALPROEX SODIUM 500 MG ER TABLET PO SCH (08:10)
[2022-02-21] MEDS: ATORVASTATIN CALCIUM 40 MG TABLET PO SCH (08:10)
[2022-02-21] MEDS: TAMSULOSIN HCL 0.4 MG CAPSULE PO SCH (08:10)
[2022-02-21] MEDS: BENZTROPINE MESYLATE 2 MG TABLET PO SCH (08:10)
[2022-02-21] MEDS: CLOPIDOGREL BISULFATE 75 MG TABLET PO SCH (08:10)
[2022-02-21] MEDS: SERTRALINE HCL 100 MG TABLET PO SCH (08:10)
[2022-02-21] MEDS: FINASTERIDE 5 MG TABLET PO SCH (08:10)
[2022-02-21 08:34] VITALS: BP 138/77
[2022-02-21 10:51] LABS: GLUCOMETER DEV NAME(LOC) 3EX.; GLUCOSE,POINT OF CARE 293 MG/DL (70-110)
[2022-02-21 16:21] LABS: GLUCOMETER DEV NAME(LOC) 3EX.; GLUCOSE,POINT OF CARE 299 MG/DL (70-110)
[2022-02-21 16:45] VITALS: BP 133/67
[2022-02-21] MEDS: MELATONIN 5 MG TABLET PO SCH (20:06)
[2022-02-21] MEDS: TraZODone HCL 100 MG TABLET PO SCH (20:06)
[2022-02-21 20:21] LABS: GLUCOMETER DEV NAME(LOC) 3EX.; GLUCOSE,POINT OF CARE 355 MG/DL (70-110)
[2022-02-22] VITALS (8 sets, daily range): BP systolic 105–159; BP diastolic 53–96
[2022-02-22 05:51] LABS: GLUCOMETER DEV NAME(LOC) 3E.C; GLUCOSE,POINT OF CARE 249 MG/DL (70-110)
[2022-02-22] MEDS: INSULIN LISPRO 100 UNITS/ML SQ PRN ×4 (06:39→20:46)
[2022-02-22] MEDS: LURASIDONE HCL 60 MG TABLET PO SCH ×2 (06:39→16:30)
[2022-02-22] MEDS: METOPROLOL TARTRATE 25 MG TABLET PO SCH ×2 (08:54→16:30)
[2022-02-22] MEDS: ATORVASTATIN CALCIUM 40 MG TABLET PO SCH (08:54)
[2022-02-22] MEDS: SERTRALINE HCL 100 MG TABLET PO SCH (08:54)
[2022-02-22] MEDS: ASPIRIN 81 MG DR TABLET PO SCH (08:54)
[2022-02-22] MEDS: TAMSULOSIN HCL 0.4 MG CAPSULE PO SCH (08:55)
[2022-02-22] MEDS: BENZTROPINE MESYLATE 2 MG TABLET PO SCH (08:55)
[2022-02-22] MEDS: BusPIRone HCL 10 MG TABLET PO SCH ×2 (08:56→16:30)
[2022-02-22] MEDS: ISOSORBIDE MONONITRATE 30 MG ER TABLET PO SCH (08:56)
[2022-02-22] MEDS: DIVALPROEX SODIUM 500 MG ER TABLET PO SCH (08:57)
[2022-02-22] MEDS: FINASTERIDE 5 MG TABLET PO SCH (08:58)
[2022-02-22] MEDS: CLOPIDOGREL BISULFATE 75 MG TABLET PO SCH (08:58)
[2022-02-22] MEDS: LORazepam 2 MG TABLET PO PRN ×2 (09:09→16:54)
[2022-02-22] MEDS: IBUPROFEN 400 MG TABLET PO PRN (09:09)
[2022-02-22 11:31] LABS: GLUCOMETER DEV NAME(LOC) 3EX.; GLUCOSE,POINT OF CARE 325 MG/DL (70-110)
[2022-02-22 16:46] LABS: GLUCOMETER DEV NAME(LOC) 3EX.; GLUCOSE,POINT OF CARE 286 MG/DL (70-110)
[2022-02-22] MEDS: GlipiZIDE 5 MG TABLET PO SCH (17:15)
[2022-02-22 20:21] LABS: GLUCOMETER DEV NAME(LOC) 3EX.; GLUCOSE,POINT OF CARE 317 MG/DL (70-110)
[2022-02-22] MEDS: MELATONIN 5 MG TABLET PO SCH (20:30)
[2022-02-22] MEDS: TraZODone HCL 100 MG TABLET PO SCH (20:30)
[2022-02-23] MEDS: GlipiZIDE 5 MG TABLET PO SCH ×2 (06:35→16:40)
[2022-02-23 06:36] LABS: GLUCOMETER DEV NAME(LOC) 3EX.; GLUCOSE,POINT OF CARE 246 MG/DL (70-110)
[2022-02-23] MEDS: LURASIDONE HCL 60 MG TABLET PO SCH ×2 (06:52→17:09)
[2022-02-23] MEDS: INSULIN LISPRO 100 UNITS/ML SQ PRN ×4 (07:00→20:43)
[2022-02-23 08:00] VITALS: BP 142/75
[2022-02-23 08:13] VITALS: BP 145/86
[2022-02-23] MEDS: BusPIRone HCL 10 MG TABLET PO SCH ×2 (08:29→16:04)
[2022-02-23] MEDS: ISOSORBIDE MONONITRATE 30 MG ER TABLET PO SCH (08:29)
[2022-02-23] MEDS: ATORVASTATIN CALCIUM 40 MG TABLET PO SCH (08:29)
[2022-02-23] MEDS: ASPIRIN 81 MG DR TABLET PO SCH (08:29)
[2022-02-23] MEDS: TAMSULOSIN HCL 0.4 MG CAPSULE PO SCH (08:29)
[2022-02-23] MEDS: SERTRALINE HCL 100 MG TABLET PO SCH (08:29)
[2022-02-23] MEDS: CLOPIDOGREL BISULFATE 75 MG TABLET PO SCH (08:29)
[2022-02-23] MEDS: BENZTROPINE MESYLATE 2 MG TABLET PO SCH (08:29)
[2022-02-23] MEDS: METOPROLOL TARTRATE 25 MG TABLET PO SCH ×2 (08:29→16:04)
[2022-02-23] MEDS: DIVALPROEX SODIUM 500 MG ER TABLET PO SCH (08:30)
[2022-02-23] MEDS: FINASTERIDE 5 MG TABLET PO SCH (08:30)
[2022-02-23] MEDS: LORazepam 2 MG TABLET PO PRN (08:40)
[2022-02-23 11:11] LABS: GLUCOMETER DEV NAME(LOC) 3EX.; GLUCOSE,POINT OF CARE 244 MG/DL (70-110)
[2022-02-23 16:47] VITALS: BP 130/85
[2022-02-23 16:51] LABS: GLUCOMETER DEV NAME(LOC) 3EX.; GLUCOSE,POINT OF CARE 362 MG/DL (70-110)
[2022-02-23 17:02] VITALS: BP 142/76
[2022-02-23 17:53] VITALS: BP 145/78
[2022-02-23] MEDS: IBUPROFEN 400 MG TABLET PO PRN (17:53)
[2022-02-23 18:53] VITALS: BP 142/76
[2022-02-23] MEDS ORDERED: ONDANSETRON HCL 4 MG TABLET PO PRN (19:15)
[2022-02-23] MEDS ORDERED: PROMETHAZINE HCL 25 MG TABLET PO PRN (19:45)
[2022-02-23] MEDS: MELATONIN 5 MG TABLET PO SCH (20:27)
[2022-02-23] MEDS: TraZODone HCL 100 MG TABLET PO SCH (20:27)
[2022-02-23 21:06] LABS: GLUCOMETER DEV NAME(LOC) 3E.I 2; GLUCOSE,POINT OF CARE 345 MG/DL (70-110)
[2022-02-24 05:36] LABS: GLUCOMETER DEV NAME(LOC) 3EX.; GLUCOSE,POINT OF CARE 237 MG/DL (70-110)
[2022-02-24] MEDS: LURASIDONE HCL 60 MG TABLET PO SCH ×2 (06:34→16:51)
[2022-02-24] MEDS: GlipiZIDE 5 MG TABLET PO SCH ×2 (06:34→16:52)
[2022-02-24] MEDS: INSULIN LISPRO 100 UNITS/ML SQ PRN ×4 (07:24→21:00)
[2022-02-24 08:00] VITALS: BP 138/91
[2022-02-24] MEDS: TAMSULOSIN HCL 0.4 MG CAPSULE PO SCH (08:10)
[2022-02-24] MEDS: DIVALPROEX SODIUM 500 MG ER TABLET PO SCH (08:11)
[2022-02-24] MEDS: SERTRALINE HCL 100 MG TABLET PO SCH (08:11)
[2022-02-24] MEDS: ATORVASTATIN CALCIUM 40 MG TABLET PO SCH (08:11)
[2022-02-24] MEDS: ISOSORBIDE MONONITRATE 30 MG ER TABLET PO SCH (08:12)
[2022-02-24] MEDS: CLOPIDOGREL BISULFATE 75 MG TABLET PO SCH (08:12)
[2022-02-24] MEDS: BENZTROPINE MESYLATE 2 MG TABLET PO SCH (08:12)
[2022-02-24] MEDS: ASPIRIN 81 MG DR TABLET PO SCH (08:12)
[2022-02-24] MEDS: METOPROLOL TARTRATE 25 MG TABLET PO SCH ×2 (08:12→16:51)
[2022-02-24] MEDS: BusPIRone HCL 10 MG TABLET PO SCH ×2 (08:13→16:51)
[2022-02-24] MEDS: FINASTERIDE 5 MG TABLET PO SCH (08:13)
[2022-02-24] MEDS: LORazepam 2 MG TABLET PO PRN (10:23)
[2022-02-24 14:00] VITALS: BP 136/77
[2022-02-24 14:21] LABS: GLUCOMETER DEV NAME(LOC) 3E.I 2; GLUCOSE,POINT OF CARE 278 MG/DL (70-110)
[2022-02-24 16:25] VITALS: BP 135/74
[2022-02-24 16:51] LABS: GLUCOMETER DEV NAME(LOC) 3EX.; GLUCOSE,POINT OF CARE 284 MG/DL (70-110)
[2022-02-24 18:07] VITALS: BP 135/74
[2022-02-24 20:46] LABS: GLUCOMETER DEV NAME(LOC) 3EX.; GLUCOSE,POINT OF CARE 335 MG/DL (70-110)
[2022-02-24] MEDS: MELATONIN 5 MG TABLET PO SCH (20:47)
[2022-02-24] MEDS: TraZODone HCL 100 MG TABLET PO SCH (20:47)
[2022-02-25 06:06] LABS: GLUCOMETER DEV NAME(LOC) 3EX.; GLUCOSE,POINT OF CARE 240 MG/DL (70-110)
[2022-02-25] MEDS: GlipiZIDE 5 MG TABLET PO SCH ×2 (06:37→16:33)
[2022-02-25] MEDS: LURASIDONE HCL 60 MG TABLET PO SCH ×2 (06:37→16:33)
[2022-02-25] MEDS: INSULIN LISPRO 100 UNITS/ML SQ PRN ×4 (06:38→20:55)
[2022-02-25] MEDS: DIVALPROEX SODIUM 500 MG ER TABLET PO SCH (08:08)
[2022-02-25] MEDS: SERTRALINE HCL 100 MG TABLET PO SCH (08:08)
[2022-02-25] MEDS: METOPROLOL TARTRATE 25 MG TABLET PO SCH ×2 (08:08→16:33)
[2022-02-25] MEDS: BENZTROPINE MESYLATE 2 MG TABLET PO SCH (08:08)
[2022-02-25] MEDS: TAMSULOSIN HCL 0.4 MG CAPSULE PO SCH (08:08)
[2022-02-25] MEDS: ATORVASTATIN CALCIUM 40 MG TABLET PO SCH (08:08)
[2022-02-25] MEDS: ISOSORBIDE MONONITRATE 30 MG ER TABLET PO SCH (08:09)
[2022-02-25] MEDS: CLOPIDOGREL BISULFATE 75 MG TABLET PO SCH (08:10)
[2022-02-25] MEDS: BusPIRone HCL 10 MG TABLET PO SCH ×2 (08:10→16:33)
[2022-02-25] MEDS: FINASTERIDE 5 MG TABLET PO SCH (08:11)
[2022-02-25] MEDS: NYSTATIN 500,000 UNITS/5 ML SUSPENSION UDCUP PO SCH ×2 (08:37→16:33)
[2022-02-25] MEDS: ASPIRIN 81 MG DR TABLET PO SCH (08:38)
[2022-02-25 10:10] VITALS: BP 154/82
[2022-02-25 11:21] LABS: GLUCOMETER DEV NAME(LOC) 3EX.; GLUCOSE,POINT OF CARE 235 MG/DL (70-110)
[2022-02-25 11:46] LABS: GLUCOMETER DEV NAME(LOC) 3E.I 2; GLUCOSE,POINT OF CARE 429 MG/DL (70-110)
[2022-02-25 13:00] VITALS: BP 148/79
[2022-02-25 14:32] LABS: COVID AG,FIA SOURCE NASAL SWAB
[2022-02-25 16:00] VITALS: BP 147/78
[2022-02-25 16:26] LABS: GLUCOMETER DEV NAME(LOC) 3E.I 2; GLUCOSE,POINT OF CARE 286 MG/DL (70-110)
[2022-02-25] MEDS: MetFORMIN HCL 500 MG TABLET PO SCH (16:33)
[2022-02-25 16:50] VITALS: BP 147/76
[2022-02-25] MEDS: TraZODone HCL 100 MG TABLET PO SCH (20:01)
[2022-02-25] MEDS: MELATONIN 5 MG TABLET PO SCH (20:01)
[2022-02-25 20:21] LABS: GLUCOMETER DEV NAME(LOC) 3E.I 2; GLUCOSE,POINT OF CARE 238 MG/DL (70-110)
[2022-02-26] VITALS (9 sets, daily range): BP systolic 103–157; BP diastolic 51–93
[2022-02-26 06:21] LABS: GLUCOMETER DEV NAME(LOC) 3EX.; GLUCOSE,POINT OF CARE 231 MG/DL (70-110)
[2022-02-26] MEDS: GlipiZIDE 5 MG TABLET PO SCH ×2 (06:49→16:45)
[2022-02-26] MEDS: LURASIDONE HCL 60 MG TABLET PO SCH (06:49)
[2022-02-26] MEDS: MetFORMIN HCL 500 MG TABLET PO SCH ×2 (06:49→16:45)
[2022-02-26] MEDS: INSULIN LISPRO 100 UNITS/ML SQ PRN ×4 (06:50→20:57)
[2022-02-26] MEDS: METOPROLOL TARTRATE 25 MG TABLET PO SCH ×2 (09:00→16:50)
[2022-02-26] MEDS: SERTRALINE HCL 100 MG TABLET PO SCH (09:01)
[2022-02-26] MEDS: ASPIRIN 81 MG DR TABLET PO SCH (09:01)
[2022-02-26] MEDS: ATORVASTATIN CALCIUM 40 MG TABLET PO SCH (09:01)
[2022-02-26] MEDS: DIVALPROEX SODIUM 500 MG ER TABLET PO SCH ×2 (09:01→16:33)
[2022-02-26] MEDS: BusPIRone HCL 10 MG TABLET PO SCH ×2 (09:02→16:36)
[2022-02-26] MEDS: ISOSORBIDE MONONITRATE 30 MG ER TABLET PO SCH (09:02)
[2022-02-26] MEDS: CLOPIDOGREL BISULFATE 75 MG TABLET PO SCH (09:02)
[2022-02-26] MEDS: BENZTROPINE MESYLATE 2 MG TABLET PO SCH (09:02)
[2022-02-26] MEDS: FINASTERIDE 5 MG TABLET PO SCH (09:02)
[2022-02-26] MEDS: NYSTATIN 500,000 UNITS/5 ML SUSPENSION UDCUP PO SCH ×2 (09:07→16:45)
[2022-02-26] MEDS: TAMSULOSIN HCL 0.4 MG CAPSULE PO SCH (09:07)
[2022-02-26 11:36] LABS: GLUCOMETER DEV NAME(LOC) 3EX.; GLUCOSE,POINT OF CARE 243 MG/DL (70-110)
[2022-02-26] MEDS: LORazepam 2 MG TABLET PO PRN (13:02)
[2022-02-26] MEDS: LURASIDONE HCL 80 MG TABLET PO SCH (16:36)
[2022-02-26 17:07] LABS: GLUCOMETER DEV NAME(LOC) 3EX.; GLUCOSE,POINT OF CARE 221 MG/DL (70-110)
[2022-02-26] MEDS: MELATONIN 5 MG TABLET PO SCH (20:35)
[2022-02-26] MEDS: TraZODone HCL 100 MG TABLET PO SCH (20:36)
[2022-02-26 21:01] LABS: GLUCOMETER DEV NAME(LOC) 3EX.; GLUCOSE,POINT OF CARE 232 MG/DL (70-110)
[2022-02-27 05:15] VITALS: BP 126/73
[2022-02-27 05:27] LABS: GLUCOMETER DEV NAME(LOC) 3E.C; GLUCOSE,POINT OF CARE 189 MG/DL (70-110)
[2022-02-27] MEDS: GlipiZIDE 5 MG TABLET PO SCH ×2 (06:53→16:38)
[2022-02-27] MEDS: MetFORMIN HCL 500 MG TABLET PO SCH ×2 (06:53→16:39)
[2022-02-27] MEDS: LURASIDONE HCL 80 MG TABLET PO SCH ×2 (06:53→10:07)
[2022-02-27] MEDS: INSULIN LISPRO 100 UNITS/ML SQ PRN ×4 (06:58→22:08)
[2022-02-27 08:00] VITALS: BP 151/77
[2022-02-27] MEDS: NYSTATIN 500,000 UNITS/5 ML SUSPENSION UDCUP PO SCH ×2 (10:07→16:38)
[2022-02-27] MEDS: FINASTERIDE 5 MG TABLET PO SCH (10:07)
[2022-02-27] MEDS: CLOPIDOGREL BISULFATE 75 MG TABLET PO SCH (10:08)
[2022-02-27] MEDS: BusPIRone HCL 10 MG TABLET PO SCH ×2 (10:08→16:39)
[2022-02-27] MEDS: LORazepam 2 MG TABLET PO PRN (10:09)
[2022-02-27] MEDS: DIVALPROEX SODIUM 500 MG ER TABLET PO SCH ×2 (10:09→16:39)
[2022-02-27] MEDS: HALOPERIDOL 5 MG TABLET PO PRN (10:09)
[2022-02-27] MEDS: BENZTROPINE MESYLATE 2 MG TABLET PO SCH (10:16)
[2022-02-27] MEDS: ASPIRIN 81 MG DR TABLET PO SCH (10:16)
[2022-02-27] MEDS: SERTRALINE HCL 100 MG TABLET PO SCH (10:16)
[2022-02-27] MEDS: TAMSULOSIN HCL 0.4 MG CAPSULE PO SCH (10:16)
[2022-02-27] MEDS: METOPROLOL TARTRATE 25 MG TABLET PO SCH ×2 (10:16→16:38)
[2022-02-27] MEDS: ATORVASTATIN CALCIUM 40 MG TABLET PO SCH (10:16)
[2022-02-27] MEDS: ISOSORBIDE MONONITRATE 30 MG ER TABLET PO SCH (12:32)
[2022-02-27 15:25] LABS: GLUCOMETER DEV NAME(LOC) 3E.C; GLUCOSE,POINT OF CARE 276 MG/DL (70-110)
[2022-02-27 16:14] VITALS: BP 128/73
[2022-02-27 17:06] LABS: GLUCOMETER DEV NAME(LOC) 3E.I 2; GLUCOSE,POINT OF CARE 252 MG/DL (70-110)
[2022-02-27 19:05] VITALS: BP 128/73
[2022-02-27] MEDS: MELATONIN 5 MG TABLET PO SCH (20:04)
[2022-02-27] MEDS: TraZODone HCL 100 MG TABLET PO SCH (20:04)
[2022-02-27 20:31] LABS: GLUCOMETER DEV NAME(LOC) 3E.I 2; GLUCOSE,POINT OF CARE 231 MG/DL (70-110)
[2022-02-28] MEDS: MetFORMIN HCL 500 MG TABLET PO SCH ×2 (06:30→17:09)
[2022-02-28] MEDS: GlipiZIDE 5 MG TABLET PO SCH ×2 (06:30→17:08)
[2022-02-28 06:31] LABS: GLUCOMETER DEV NAME(LOC) 3EX.; GLUCOSE,POINT OF CARE 263 MG/DL (70-110)
[2022-02-28] MEDS: LURASIDONE HCL 80 MG TABLET PO SCH ×2 (06:31→17:09)
[2022-02-28] MEDS: INSULIN LISPRO 100 UNITS/ML SQ PRN ×4 (06:59→20:50)
[2022-02-28 08:00] VITALS: BP 125/69
[2022-02-28] MEDS: SERTRALINE HCL 100 MG TABLET PO SCH (08:57)
[2022-02-28] MEDS: TAMSULOSIN HCL 0.4 MG CAPSULE PO SCH (08:58)
[2022-02-28] MEDS: METOPROLOL TARTRATE 25 MG TABLET PO SCH ×2 (08:59→17:08)
[2022-02-28] MEDS: DIVALPROEX SODIUM 500 MG ER TABLET PO SCH ×2 (09:00→17:08)
[2022-02-28] MEDS: BusPIRone HCL 10 MG TABLET PO SCH ×2 (09:00→17:08)
[2022-02-28] MEDS: BENZTROPINE MESYLATE 2 MG TABLET PO SCH (09:00)
[2022-02-28] MEDS: ATORVASTATIN CALCIUM 40 MG TABLET PO SCH (09:00)
[2022-02-28] MEDS: ASPIRIN 81 MG DR TABLET PO SCH (09:01)
[2022-02-28] MEDS: CLOPIDOGREL BISULFATE 75 MG TABLET PO SCH (09:01)
[2022-02-28] MEDS: ISOSORBIDE MONONITRATE 30 MG ER TABLET PO SCH (09:02)
[2022-02-28] MEDS: FINASTERIDE 5 MG TABLET PO SCH (09:03)
[2022-02-28] MEDS: NYSTATIN 500,000 UNITS/5 ML SUSPENSION UDCUP PO SCH ×2 (09:03→17:09)
[2022-02-28] MEDS: LORazepam 2 MG TABLET PO PRN (11:12)
[2022-02-28 11:51] LABS: GLUCOMETER DEV NAME(LOC) 3E.I 2; GLUCOSE,POINT OF CARE 230 MG/DL (70-110)
[2022-02-28 16:00] VITALS: BP 130/78
[2022-02-28 16:36] LABS: GLUCOMETER DEV NAME(LOC) 3E.I 2; GLUCOSE,POINT OF CARE 164 MG/DL (70-110)
[2022-02-28] MEDS: MELATONIN 5 MG TABLET PO SCH (20:45)
[2022-02-28] MEDS: TraZODone HCL 100 MG TABLET PO SCH (20:45)
[2022-03-01 00:31] LABS: GLUCOMETER DEV NAME(LOC) 3E.I 2; GLUCOSE,POINT OF CARE 186 MG/DL (70-110)
[2022-03-01] MEDS: LURASIDONE HCL 80 MG TABLET PO SCH ×2 (06:39→16:12)
[2022-03-01] MEDS: MetFORMIN HCL 500 MG TABLET PO SCH ×2 (06:39→16:36)
[2022-03-01] MEDS: GlipiZIDE 5 MG TABLET PO SCH ×2 (06:40→16:27)
[2022-03-01] MEDS: INSULIN LISPRO 100 UNITS/ML SQ PRN ×4 (06:43→21:03)
[2022-03-01 07:01] LABS: GLUCOMETER DEV NAME(LOC) 3EX.; GLUCOSE,POINT OF CARE 195 MG/DL (70-110)
[2022-03-01] MEDS: DIVALPROEX SODIUM 500 MG ER TABLET PO SCH ×2 (08:26→16:12)
[2022-03-01] MEDS: ASPIRIN 81 MG DR TABLET PO SCH (08:26)
[2022-03-01] MEDS: SERTRALINE HCL 100 MG TABLET PO SCH (08:27)
[2022-03-01] MEDS: METOPROLOL TARTRATE 25 MG TABLET PO SCH ×2 (08:27→16:27)
[2022-03-01] MEDS: ATORVASTATIN CALCIUM 40 MG TABLET PO SCH (08:27)
[2022-03-01] MEDS: TAMSULOSIN HCL 0.4 MG CAPSULE PO SCH (08:27)
[2022-03-01] MEDS: BENZTROPINE MESYLATE 2 MG TABLET PO SCH (08:27)
[2022-03-01] MEDS: NYSTATIN 500,000 UNITS/5 ML SUSPENSION UDCUP PO SCH ×2 (08:28→16:12)
[2022-03-01] MEDS: CLOPIDOGREL BISULFATE 75 MG TABLET PO SCH (08:28)
[2022-03-01] MEDS: FINASTERIDE 5 MG TABLET PO SCH (08:28)
[2022-03-01] MEDS: ISOSORBIDE MONONITRATE 30 MG ER TABLET PO SCH (08:28)
[2022-03-01] MEDS: BusPIRone HCL 10 MG TABLET PO SCH ×2 (08:28→16:12)
[2022-03-01 08:43] VITALS: BP 136/75
[2022-03-01 11:43] LABS: GLUCOMETER DEV NAME(LOC) 3E.I 2; GLUCOSE,POINT OF CARE 224 MG/DL (70-110)
[2022-03-01 17:18] VITALS: BP 118/68
[2022-03-01 17:31] LABS: GLUCOMETER DEV NAME(LOC) 3E.I 2; GLUCOSE,POINT OF CARE 167 MG/DL (70-110)
[2022-03-01] MEDS: LORazepam 2 MG TABLET PO PRN (17:57)
[2022-03-01] MEDS: TraZODone HCL 100 MG TABLET PO SCH (20:06)
[2022-03-01] MEDS: MELATONIN 5 MG TABLET PO SCH (20:06)
[2022-03-01 20:50] LABS: GLUCOMETER DEV NAME(LOC) 3E.I 2; GLUCOSE,POINT OF CARE 163 MG/DL (70-110)
[2022-03-01] MEDS: IBUPROFEN 400 MG TABLET PO PRN (21:43)
[2022-03-02] MEDS: LURASIDONE HCL 80 MG TABLET PO SCH ×2 (06:30→16:20)
[2022-03-02] MEDS: INSULIN LISPRO 100 UNITS/ML SQ PRN ×4 (06:31→21:28)
[2022-03-02] MEDS: GlipiZIDE 5 MG TABLET PO SCH ×2 (06:31→16:21)
[2022-03-02] MEDS: MetFORMIN HCL 500 MG TABLET PO SCH ×2 (06:32→16:21)
[2022-03-02 06:36] LABS: GLUCOMETER DEV NAME(LOC) 3EX.; GLUCOSE,POINT OF CARE 163 MG/DL (70-110)
[2022-03-02] MEDS: CLOPIDOGREL BISULFATE 75 MG TABLET PO SCH (08:25)
[2022-03-02] MEDS: ISOSORBIDE MONONITRATE 30 MG ER TABLET PO SCH (08:25)
[2022-03-02] MEDS: BusPIRone HCL 10 MG TABLET PO SCH ×2 (08:25→16:20)
[2022-03-02] MEDS: FINASTERIDE 5 MG TABLET PO SCH (08:25)
[2022-03-02] MEDS: ASPIRIN 81 MG DR TABLET PO SCH (08:26)
[2022-03-02] MEDS: DIVALPROEX SODIUM 500 MG ER TABLET PO SCH ×2 (08:26→16:21)
[2022-03-02] MEDS: TAMSULOSIN HCL 0.4 MG CAPSULE PO SCH (08:26)
[2022-03-02] MEDS: SERTRALINE HCL 100 MG TABLET PO SCH (08:26)
[2022-03-02] MEDS: BENZTROPINE MESYLATE 2 MG TABLET PO SCH (08:26)
[2022-03-02] MEDS: NYSTATIN 500,000 UNITS/5 ML SUSPENSION UDCUP PO SCH ×3 (08:27→16:21)
[2022-03-02] MEDS: ATORVASTATIN CALCIUM 40 MG TABLET PO SCH (08:27)
[2022-03-02] MEDS: METOPROLOL TARTRATE 25 MG TABLET PO SCH ×2 (08:27→16:21)
[2022-03-02 08:30] VITALS: BP 161/98
[2022-03-02] MEDS: LORazepam 2 MG TABLET PO PRN (12:33)
[2022-03-02 12:46] LABS: GLUCOMETER DEV NAME(LOC) 3E.I 2; GLUCOSE,POINT OF CARE 196 MG/DL (70-110)
[2022-03-02 16:12] VITALS: BP 142/74
[2022-03-02 17:27] LABS: GLUCOMETER DEV NAME(LOC) 3E.I 2; GLUCOSE,POINT OF CARE 162 MG/DL (70-110)
[2022-03-02] MEDS: MELATONIN 5 MG TABLET PO SCH (20:15)
[2022-03-02] MEDS: TraZODone HCL 100 MG TABLET PO SCH (20:15)
[2022-03-02 20:33] VITALS: BP 121/80
[2022-03-02 20:41] LABS: GLUCOMETER DEV NAME(LOC) 3E.I 2; GLUCOSE,POINT OF CARE 159 MG/DL (70-110)
[2022-03-03 06:26] LABS: GLUCOMETER DEV NAME(LOC) 3EX.; GLUCOSE,POINT OF CARE 171 MG/DL (70-110)
[2022-03-03] MEDS: INSULIN LISPRO 100 UNITS/ML SQ PRN ×4 (06:43→20:33)
[2022-03-03] MEDS: GlipiZIDE 5 MG TABLET PO SCH ×2 (06:44→16:35)
[2022-03-03] MEDS: LURASIDONE HCL 80 MG TABLET PO SCH ×2 (06:44→16:34)
[2022-03-03] MEDS: MetFORMIN HCL 500 MG TABLET PO SCH ×2 (06:44→16:35)
[2022-03-03] MEDS: BENZTROPINE MESYLATE 2 MG TABLET PO SCH (08:19)
[2022-03-03] MEDS: ISOSORBIDE MONONITRATE 30 MG ER TABLET PO SCH (08:20)
[2022-03-03] MEDS: ATORVASTATIN CALCIUM 40 MG TABLET PO SCH (08:20)
[2022-03-03] MEDS: BusPIRone HCL 10 MG TABLET PO SCH ×2 (08:20→16:35)
[2022-03-03] MEDS: DIVALPROEX SODIUM 500 MG ER TABLET PO SCH ×2 (08:20→16:35)
[2022-03-03] MEDS: CLOPIDOGREL BISULFATE 75 MG TABLET PO SCH (08:20)
[2022-03-03] MEDS: SERTRALINE HCL 100 MG TABLET PO SCH (08:20)
[2022-03-03] MEDS: FINASTERIDE 5 MG TABLET PO SCH (08:21)
[2022-03-03] MEDS: ASPIRIN 81 MG DR TABLET PO SCH (08:21)
[2022-03-03] MEDS: NYSTATIN 500,000 UNITS/5 ML SUSPENSION UDCUP PO SCH ×2 (08:21→16:34)
[2022-03-03] MEDS: METOPROLOL TARTRATE 25 MG TABLET PO SCH ×2 (08:21→16:35)
[2022-03-03] MEDS: TAMSULOSIN HCL 0.4 MG CAPSULE PO SCH (08:21)
[2022-03-03 10:12] VITALS: BP 153/81
[2022-03-03] MEDS: LORazepam 2 MG TABLET PO PRN (11:23)
[2022-03-03 11:36] LABS: GLUCOMETER DEV NAME(LOC) 3E.I 2; GLUCOSE,POINT OF CARE 180 MG/DL (70-110)
[2022-03-03] MEDS: MAG HYDROX/AL HYDROX/SIMETH ES 30 ML SUSPENSION UDCUP PO PRN (12:36)
[2022-03-03 16:14] VITALS: BP 129/59
[2022-03-03 16:46] LABS: GLUCOMETER DEV NAME(LOC) 3E.I 2; GLUCOSE,POINT OF CARE 131 MG/DL (70-110)
[2022-03-03] MEDS: MELATONIN 5 MG TABLET PO SCH (20:03)
[2022-03-03] MEDS: TraZODone HCL 100 MG TABLET PO SCH (20:03)
[2022-03-03 20:15] LABS: GLUCOMETER DEV NAME(LOC) 3E.I 2; GLUCOSE,POINT OF CARE 147 MG/DL (70-110)
[2022-03-03 23:50] VITALS: BP 155/86
[2022-03-04 06:25] LABS: GLUCOMETER DEV NAME(LOC) 3EX.; GLUCOSE,POINT OF CARE 154 MG/DL (70-110)
[2022-03-04] MEDS: GlipiZIDE 5 MG TABLET PO SCH ×2 (06:48→16:33)
[2022-03-04] MEDS: MetFORMIN HCL 500 MG TABLET PO SCH ×2 (06:48→17:09)
[2022-03-04] MEDS: LURASIDONE HCL 80 MG TABLET PO SCH ×2 (06:49→16:23)
[2022-03-04] MEDS: INSULIN LISPRO 100 UNITS/ML SQ PRN ×2 (06:55→12:14)
[2022-03-04] MEDS: ISOSORBIDE MONONITRATE 30 MG ER TABLET PO SCH (08:43)
[2022-03-04] MEDS: ATORVASTATIN CALCIUM 40 MG TABLET PO SCH (08:43)
[2022-03-04] MEDS: FINASTERIDE 5 MG TABLET PO SCH (08:43)
[2022-03-04] MEDS: SERTRALINE HCL 100 MG TABLET PO SCH (08:43)
[2022-03-04] MEDS: BENZTROPINE MESYLATE 2 MG TABLET PO SCH (08:43)
[2022-03-04] MEDS: METOPROLOL TARTRATE 25 MG TABLET PO SCH ×2 (08:43→16:33)
[2022-03-04] MEDS: DIVALPROEX SODIUM 500 MG ER TABLET PO SCH ×2 (08:43→16:23)
[2022-03-04] MEDS: CLOPIDOGREL BISULFATE 75 MG TABLET PO SCH (08:43)
[2022-03-04] MEDS: NYSTATIN 500,000 UNITS/5 ML SUSPENSION UDCUP PO SCH ×2 (08:44→16:23)
[2022-03-04] MEDS: ASPIRIN 81 MG DR TABLET PO SCH (08:44)
[2022-03-04] MEDS: BusPIRone HCL 10 MG TABLET PO SCH ×2 (08:44→16:23)
[2022-03-04] MEDS: TAMSULOSIN HCL 0.4 MG CAPSULE PO SCH (08:44)
[2022-03-04 08:49] VITALS: BP 150/86
[2022-03-04] MEDS: LORazepam 2 MG TABLET PO PRN (12:08)
[2022-03-04 12:21] LABS: GLUCOMETER DEV NAME(LOC) 3E.I 2; GLUCOSE,POINT OF CARE 164 MG/DL (70-110)
[2022-03-04 14:26] LABS: COVID AG,FIA SOURCE NASAL SWAB
[2022-03-04 16:18] VITALS: BP 114/70
[2022-03-04 16:21] LABS: GLUCOMETER DEV NAME(LOC) 3E.I 2; GLUCOSE,POINT OF CARE 116 MG/DL (70-110)
[2022-03-04] MEDS: MELATONIN 5 MG TABLET PO SCH (20:24)
[2022-03-04] MEDS: TraZODone HCL 100 MG TABLET PO SCH (20:24)
[2022-03-04 20:35] LABS: GLUCOMETER DEV NAME(LOC) 3EX.; GLUCOSE,POINT OF CARE 133 MG/DL (70-110)
[2022-03-05 05:36] LABS: GLUCOMETER DEV NAME(LOC) 3EX.; GLUCOSE,POINT OF CARE 149 MG/DL (70-110)
[2022-03-05] MEDS: LURASIDONE HCL 80 MG TABLET PO SCH ×2 (06:55→16:15)
[2022-03-05] MEDS: GlipiZIDE 5 MG TABLET PO SCH ×2 (06:56→17:51)
[2022-03-05] MEDS: MetFORMIN HCL 500 MG TABLET PO SCH ×2 (06:56→17:51)
[2022-03-05] MEDS: INSULIN LISPRO 100 UNITS/ML SQ PRN ×3 (06:58→17:56)
[2022-03-05 08:30] VITALS: BP 128/64
[2022-03-05] MEDS: ASPIRIN 81 MG DR TABLET PO SCH (08:30)
[2022-03-05] MEDS: BusPIRone HCL 10 MG TABLET PO SCH ×2 (08:30→16:15)
[2022-03-05] MEDS: BENZTROPINE MESYLATE 2 MG TABLET PO SCH (08:30)
[2022-03-05] MEDS: DIVALPROEX SODIUM 500 MG ER TABLET PO SCH ×2 (08:30→16:15)
[2022-03-05] MEDS: TAMSULOSIN HCL 0.4 MG CAPSULE PO SCH (08:31)
[2022-03-05] MEDS: FINASTERIDE 5 MG TABLET PO SCH (08:32)
[2022-03-05] MEDS: CLOPIDOGREL BISULFATE 75 MG TABLET PO SCH (08:32)
[2022-03-05] MEDS: ISOSORBIDE MONONITRATE 30 MG ER TABLET PO SCH (08:32)
[2022-03-05] MEDS: ATORVASTATIN CALCIUM 40 MG TABLET PO SCH (08:32)
[2022-03-05] MEDS: SERTRALINE HCL 100 MG TABLET PO SCH (08:32)
[2022-03-05] MEDS: METOPROLOL TARTRATE 25 MG TABLET PO SCH ×2 (08:33→17:51)
[2022-03-05 12:11] LABS: GLUCOMETER DEV NAME(LOC) 3E.I 2; GLUCOSE,POINT OF CARE 158 MG/DL (70-110)
[2022-03-05 16:00] VITALS: BP 123/71
[2022-03-05 17:02] LABS: GLUCOMETER DEV NAME(LOC) 3E.I 2; GLUCOSE,POINT OF CARE 173 MG/DL (70-110)
[2022-03-05] MEDS: TraZODone HCL 100 MG TABLET PO SCH (20:14)
[2022-03-05] MEDS: MELATONIN 5 MG TABLET PO SCH (20:52)
[2022-03-05 21:01] LABS: GLUCOMETER DEV NAME(LOC) 3E.I 2; GLUCOSE,POINT OF CARE 126 MG/DL (70-110)
[2022-03-06 06:16] LABS: GLUCOMETER DEV NAME(LOC) 3EX.; GLUCOSE,POINT OF CARE 136 MG/DL (70-110)
[2022-03-06] MEDS: GlipiZIDE 5 MG TABLET PO SCH ×2 (06:52→16:42)
[2022-03-06] MEDS: MetFORMIN HCL 500 MG TABLET PO SCH ×2 (06:52→17:07)
[2022-03-06] MEDS: LURASIDONE HCL 80 MG TABLET PO SCH ×2 (06:52→16:42)
[2022-03-06] MEDS: TAMSULOSIN HCL 0.4 MG CAPSULE PO SCH (08:34)
[2022-03-06] MEDS: FINASTERIDE 5 MG TABLET PO SCH (08:35)
[2022-03-06] MEDS: CLOPIDOGREL BISULFATE 75 MG TABLET PO SCH (08:35)
[2022-03-06] MEDS: ASPIRIN 81 MG DR TABLET PO SCH (08:35)
[2022-03-06] MEDS: BENZTROPINE MESYLATE 2 MG TABLET PO SCH (08:35)
[2022-03-06] MEDS: ATORVASTATIN CALCIUM 40 MG TABLET PO SCH (08:35)
[2022-03-06] MEDS: BusPIRone HCL 10 MG TABLET PO SCH ×2 (08:36→16:42)
[2022-03-06] MEDS: METOPROLOL TARTRATE 25 MG TABLET PO SCH ×2 (08:36→16:42)
[2022-03-06] MEDS: DIVALPROEX SODIUM 500 MG ER TABLET PO SCH ×2 (08:36→16:42)
[2022-03-06] MEDS: SERTRALINE HCL 100 MG TABLET PO SCH (08:37)
[2022-03-06] MEDS: ISOSORBIDE MONONITRATE 30 MG ER TABLET PO SCH (08:37)
[2022-03-06 09:22] VITALS: BP 152/76
[2022-03-06] MEDS: MAG HYDROX/AL HYDROX/SIMETH ES 30 ML SUSPENSION UDCUP PO PRN (10:33)
[2022-03-06 11:21] LABS: GLUCOMETER DEV NAME(LOC) 3E.I 2; GLUCOSE,POINT OF CARE 178 MG/DL (70-110)
[2022-03-06] MEDS: INSULIN LISPRO 100 UNITS/ML SQ PRN ×2 (11:25→17:39)
[2022-03-06 16:00] VITALS: BP 138/71
[2022-03-06 16:21] LABS: GLUCOMETER DEV NAME(LOC) 3EX.; GLUCOSE,POINT OF CARE 149 MG/DL (70-110)
[2022-03-06] MEDS: TraZODone HCL 100 MG TABLET PO SCH (20:11)
[2022-03-06] MEDS: MELATONIN 5 MG TABLET PO SCH (20:11)
[2022-03-06 20:51] LABS: GLUCOMETER DEV NAME(LOC) 3EX.; GLUCOSE,POINT OF CARE 128 MG/DL (70-110)
[2022-03-07 06:32] LABS: GLUCOMETER DEV NAME(LOC) 3EX.; GLUCOSE,POINT OF CARE 132 MG/DL (70-110)
[2022-03-07] MEDS: GlipiZIDE 5 MG TABLET PO SCH (06:44)
[2022-03-07] MEDS: MetFORMIN HCL 500 MG TABLET PO SCH (06:44)
[2022-03-07] MEDS: LURASIDONE HCL 80 MG TABLET PO SCH (06:44)
[2022-03-07] MEDS: INSULIN LISPRO 100 UNITS/ML SQ PRN (06:46)
[2022-03-07] MEDS: DIVALPROEX SODIUM 500 MG ER TABLET PO SCH (08:14)
[2022-03-07] MEDS: ATORVASTATIN CALCIUM 40 MG TABLET PO SCH (08:14)
[2022-03-07] MEDS: SERTRALINE HCL 100 MG TABLET PO SCH (08:14)
[2022-03-07] MEDS: TAMSULOSIN HCL 0.4 MG CAPSULE PO SCH (08:14)
[2022-03-07] MEDS: BENZTROPINE MESYLATE 2 MG TABLET PO SCH (08:14)
[2022-03-07] MEDS: CLOPIDOGREL BISULFATE 75 MG TABLET PO SCH (08:14)
[2022-03-07] MEDS: ISOSORBIDE MONONITRATE 30 MG ER TABLET PO SCH (08:14)
[2022-03-07] MEDS: BusPIRone HCL 10 MG TABLET PO SCH (08:15)
[2022-03-07] MEDS: ASPIRIN 81 MG DR TABLET PO SCH (08:15)
[2022-03-07] MEDS: METOPROLOL TARTRATE 25 MG TABLET PO SCH (08:15)
[2022-03-07] MEDS: FINASTERIDE 5 MG TABLET PO SCH (08:15)
[2022-03-07 08:38] VITALS: BP 146/70
[2022-03-07 11:21] LABS: GLUCOMETER DEV NAME(LOC) 3E.I 2; GLUCOSE,POINT OF CARE 120 MG/DL (70-110)
[2022-03-07] MEDS ORDERED: DIVA-80 PO (12:31)
[2022-03-07] MEDS ORDERED: LURA80TA2 PO (12:31)
[2022-03-07] MEDS ORDERED: BUSP10TA23 PO (12:31)
[2022-03-07] MEDS ORDERED: TRAZ-257 PO (12:31)
[2022-03-07] MEDS ORDERED: SERT-440 PO (12:31)
[2022-03-07] MEDS ORDERED: BENZ2TAB76 PO (12:31)
[2022-03-07] MEDS ORDERED: GLIP5 PO (14:57)
[2022-03-07] MEDS ORDERED: METF-1211 PO (14:57)
== END 2022-03-07 16:10 | disposition home or self-care (01) | DRG 750 ==
LOC: EMS 18:26 → 3EI 02-19 00:01
PROVIDERS: ADMIT Psychiatry & Neurology Child & Adolescent Psychiatry; ATTEND Psychiatry & Neurology Child & Adolescent Psychiatry
DX: F25.1 Schizoaffective disorder, depressive type (principal); R45.851 Suicidal ideations; I11.9 Hypertensive heart disease without heart failure; Z59.00 Homelessness unspecified; F31.9 Bipolar disorder, unspecified; E11.65 Type 2 diabetes mellitus with hyperglycemia; E78.00 Pure hypercholesterolemia, unspecified; E78.5 Hyperlipidemia, unspecified; K21.9 Gastro-esophageal reflux disease without esophagitis; F41.9 Anxiety disorder, unspecified; Z20.822 Contact with and (suspected) exposure to COVID-19; R07.89 Other chest pain; R55 Syncope and collapse; W18.30XA Fall on same level, unspecified, initial encounter; Z88.6 Allergy status to analgesic agent; Z79.02 Long term (current) use of antithrombotics/antiplatelets; Z79.4 Long term (current) use of insulin; Z86.73 Personal history of transient ischemic attack (TIA), and cerebral infarction without residual deficits; Z91.81 History of falling; Z95.5 Presence of coronary angioplasty implant and graft; Z88.8 Allergy status to other drugs, medicaments and biological substances; Z88.9 Allergy status to unspecified drugs, medicaments and biological substances; Z90.49 Acquired absence of other specified parts of digestive tract; Y93.89 Activity, other specified; Y92.89 Other specified places as the place of occurrence of the external cause; Y99.8 Other external cause status; Z28.9 Immunization not carried out for unspecified reason
CPT/HCPCS: 71045; 72040; 80053; 82962; 83690; 83880; 84484; 85025; 87081; 93005; 94660; 97116; 97162; 99285; G0480; Q9967; 36415-L1; 36415-TC

== ENCOUNTER 2022-03-10 18:23 | Inpatient (IN) | payer MEDICAID, OTHER ==
[~2022-03-10] VITALS: Ht 188 cm; Wt 113.2 kg
[~2022-03-10 18:23] MED LIST changes: -ARIP2TAB3 PO; -GABA-1181 PO; +GLIP5 PO; -HALO10 PO; -HYDR-4584 PO; -LISI-893 PO; -LURA60TA PO; +LURA80TA2 PO; -MELA5TAB21 PO; +METF-1211 PO; -METO25 PO; +METO25XL PO; -NITR0.4T50 SL; -PANT20TA18 PO; -SERT-162 PO; +SERT-440 PO
[2022-03-10 19:28] LABS: BASOPHILS % (AUTO) 0.3 % (0.0-2.0); EOSINOPHILS % (AUTO) 0.3 % (1.0-6.0); HEMATOCRIT 37.8 % (41-53); HEMOGLOBIN 12.2 g/dL (13.5-17.5); LYMPHOCYTES # (AUTO) 1.6 K/uL (1.0-4.8); LYMPHOCYTES % (AUTO) 14.6 % (22.0-44.0); MEAN CORPUSCULAR HEMOGLOBIN 22.6 pg (26.0-34.0); MEAN CORPUSCULAR HGB CONC 32.1 G/dL (31.0-37.0); MEAN CORPUSCULAR VOLUME 70 fL (80-100); MONOCYTES % (AUTO) 9.1 % (2.0-9.0); NEUTROPHILS # (AUTO) 8.2 K/uL (1.8-7.7); NEUTROPHILS % (AUTO) 75.7 % (40.0-70.0); PLATELET COUNT (AUTO) 291 K/uL (150-450); RED BLOOD CELL COUNT(AUTO) 5.39 MIL/uL (4.50-5.90); RED CELL DISTRIBUTION WIDTH 19.8 % (11.5-14.5)
[2022-03-10 19:42] LABS: ALANINE AMINOTRANSFERASE 41 U/L (12-78); ALBUMIN 4.2 g/dL (3.4-5.0); ALKALINE PHOSPHATASE 121 U/L (46-116); ANION GAP 15 mmol/L (8-16); ASPARTATE AMINOTRANSFERASE 24 U/L (15-37); BILIRUBIN,TOTAL 0.2 mg/dL (0.1-1.0); CALCIUM, TOTAL 9.2 mg/dL (8.8-10.5); CARBON DIOXIDE 24 mmol/L (22-29); CHLORIDE 104 mmol/L (98-107); CREATININE 0.93 mg/dL (0.60-1.30); GLOMERULAR FILTR. RATE CALC > 60 mL/min (>60); POTASSIUM 3.4 mmol/L (3.5-5.1); SODIUM SERUM 143 mmol/L (136-145); TOTAL PROTEIN, SERUM 8.1 g/dL (6.4-8.2); UREA NITROGEN, BLOOD 14 mg/dL (7-18)
[2022-03-10 19:43] LABS: INR 0.9 (0.9-1.1); PROTHROMBIN TIME 10.1 SEC (9.4-11.6)
[2022-03-10 19:44] LABS: GLUCOSE,RANDOM 42 mg/dL (70-110)
[2022-03-10] MEDS ORDERED: NITROGLYCERIN 0.3 MG SUBLINGUAL TABLET #100 SL ONE (19:45)
[2022-03-10] MEDS ORDERED: DEXTROSE 5%-0.9% SODIUM CHL 1,000 ML IV ONE (20:00)
[2022-03-10] MEDS ORDERED: PROMETHAZINE HCL 25 MG TABLET PO ONE (20:30)
[2022-03-10 21:08] LABS: COVID AG,FIA SOURCE NASAL SWAB
[2022-03-10] MEDS ORDERED: DEXTROSE 50%-WATER 25 GM/50 ML SYRINGE IVP ONE (21:15)
[2022-03-11] MEDS ORDERED: DEXTROSE 50%-WATER 25 GM/50 ML SYRINGE IVP ONE ×4 (00:30→05:00)
[2022-03-11] MEDS ORDERED: DEXTROSE 10%-WATER 1,000 ML IV ONE (00:30)
[2022-03-11 00:41] LABS: GLUCOSE,POINT OF CARE 42 MG/DL (70-110)
[2022-03-11 00:41] LABS: GLUCOSE,POINT OF CARE 87 MG/DL (70-110)
[2022-03-11 00:41] LABS: GLUCOSE,POINT OF CARE 52 MG/DL (70-110)
[2022-03-11 00:41] LABS: GLUCOSE,POINT OF CARE 56 MG/DL (70-110)
[2022-03-11 00:41] LABS: GLUCOSE,POINT OF CARE 133 MG/DL (70-110)
[2022-03-11 00:45] LABS: GLUCOSE,POINT OF CARE 139 MG/DL (70-110)
[2022-03-11 01:26] LABS: GLUCOSE,POINT OF CARE 77 MG/DL (70-110)
[2022-03-11 02:06] LABS: GLUCOSE,POINT OF CARE 84 MG/DL (70-110)
[2022-03-11 03:31] LABS: GLUCOSE,POINT OF CARE 35 MG/DL (70-110)
[2022-03-11 04:06] LABS: GLUCOSE,POINT OF CARE 67 MG/DL (70-110)
[2022-03-11 04:56] LABS: APPEARANCE,URINE CLEAR (CLEAR); BILIRUBIN,URINE NEGATIVE (NEGATIVE); GLUCOSE, URINE (UA) NEGATIVE (NEGATIVE); KETONES,URINE NEGATIVE (NEGATIVE); LEUKOCYTE ESTERASE ,URINE NEGATIVE (NEGATIVE); NITRATE,URINE NEGATIVE (NEGATIVE); OCCULT BLOOD,URINE NEGATIVE (NEGATIVE); PH,URINE 5.5 (5.0-8.0); PROTEIN,URINE NEGATIVE (NEGATIVE); SPECIFIC GRAVITIY, URINE 1.009 (1.003-1.030); UROBILINOGEN,URINE <=1.0 mg/dL (<=1.0)
[2022-03-11 05:01] LABS: GLUCOSE,POINT OF CARE 46 MG/DL (70-110)
[2022-03-11 05:52] LABS: GLUCOMETER DEV NAME(LOC) ERT.5; GLUCOSE,POINT OF CARE 48 MG/DL (70-110)
[2022-03-11 05:52] LABS: GLUCOSE,POINT OF CARE 99 MG/DL (70-110)
[2022-03-11 06:19] LABS: CHLORIDE 106 mmol/L (98-107); SODIUM SERUM 140 mmol/L (136-145); UREA NITROGEN, BLOOD 9 mg/dL (7-18)
[2022-03-11 06:24] LABS: ANION GAP 10 mmol/L (8-16); CALCIUM, TOTAL 8.7 mg/dL (8.8-10.5); CARBON DIOXIDE 24 mmol/L (22-29); CREATININE 0.77 mg/dL (0.60-1.30); GLOMERULAR FILTR. RATE CALC > 60 mL/min (>60); GLUCOSE,RANDOM 80 mg/dL (70-110)
[2022-03-11 06:29] LABS: ALANINE AMINOTRANSFERASE 36 U/L (12-78); ALBUMIN 3.6 g/dL (3.4-5.0); ALKALINE PHOSPHATASE 112 U/L (46-116); ASPARTATE AMINOTRANSFERASE 24 U/L (15-37); BILIRUBIN,TOTAL 0.2 mg/dL (0.1-1.0); TOTAL PROTEIN, SERUM 7.4 g/dL (6.4-8.2)
[2022-03-11 07:25] LABS: GLUCOMETER DEV NAME(LOC) ERT.5; GLUCOSE,POINT OF CARE 43 MG/DL (70-110)
[2022-03-11 07:51] LABS: GLUCOMETER DEV NAME(LOC) ERT.5; GLUCOSE,POINT OF CARE 50 MG/DL (70-110)
[2022-03-11 08:31] LABS: GLUCOMETER DEV NAME(LOC) ERT.5; GLUCOSE,POINT OF CARE 72 MG/DL (70-110)
[2022-03-11 09:00] VITALS: BP 155/84
[2022-03-11] MEDS ORDERED: IPRATROPIUM BROMIDE 0.5 MG/2.5 ML NEB SOLUTION NEB PRN (09:00)
[2022-03-11] MEDS ORDERED: MAGNESIUM HYDROXIDE SUSPENSION 30 ML UDCUP PO PRN (09:00)
[2022-03-11] MEDS ORDERED: BISACODYL 10 MG RECTAL RECTAL SUPPOSITORY PR PRN (09:00)
[2022-03-11] MEDS ORDERED: ZOLPIDEM TARTRATE 5 MG TABLET PO PRN (09:00)
[2022-03-11] MEDS ORDERED: ALBUTEROL SULFATE 2.5 MG/0.5 ML NEB SOLUTION NEB PRN (09:00)
[2022-03-11 09:07] LABS: GLUCOMETER DEV NAME(LOC) ERT.5; GLUCOSE,POINT OF CARE 116 MG/DL (70-110)
[2022-03-11] MEDS: PANTOPRAZOLE SODIUM 40 MG/VIAL IVP SCH (09:41)
[2022-03-11] MEDS: BENZTROPINE MESYLATE 2 MG TABLET PO SCH (09:42)
[2022-03-11] MEDS: FINASTERIDE 5 MG TABLET PO SCH (09:42)
[2022-03-11] MEDS: METOPROLOL SUCCINATE 25 MG ER TABLET PO SCH ×2 (09:42→20:55)
[2022-03-11] MEDS: TAMSULOSIN HCL 0.4 MG CAPSULE PO SCH (09:42)
[2022-03-11] MEDS: SERTRALINE HCL 100 MG TABLET PO SCH (09:42)
[2022-03-11] MEDS: DIVALPROEX SODIUM 500 MG ER TABLET PO SCH ×2 (09:42→20:54)
[2022-03-11] MEDS: BusPIRone HCL 10 MG TABLET PO SCH ×2 (09:42→20:54)
[2022-03-11] MEDS: ASPIRIN 81 MG DR TABLET PO SCH (09:42)
[2022-03-11] MEDS: CLOPIDOGREL BISULFATE 75 MG TABLET PO SCH (09:43)
[2022-03-11] MEDS: ISOSORBIDE MONONITRATE 30 MG ER TABLET PO SCH (09:43)
[2022-03-11] MEDS ORDERED: DEXTROSE 10%-WATER 1,000 ML IV SCH (11:45)
[2022-03-11 12:00] VITALS: BP 130/73
[2022-03-11 13:17] LABS: GLUCOSE,POINT OF CARE 125 MG/DL (70-110)
[2022-03-11 13:17] LABS: GLUCOSE,POINT OF CARE 108 MG/DL (70-110)
[2022-03-11 13:17] LABS: GLUCOSE,POINT OF CARE 114 MG/DL (70-110)
[2022-03-11 13:17] LABS: GLUCOSE,POINT OF CARE 103 MG/DL (70-110)
[2022-03-11] MEDS: GlipiZIDE 5 MG TABLET PO SCH (15:03)
[2022-03-11] MEDS: HEPARIN SODIUM,PORCINE 5,000 UNITS/ML VIAL SQ SCH ×2 (15:04→23:11)
[2022-03-11] MEDS: DEXTROSE 50%-WATER 25 GM/50 ML SYRINGE IVP PRN ×2 (15:05→17:18)
[2022-03-11 15:11] LABS: GLUCOSE,POINT OF CARE 122 MG/DL (70-110)
[2022-03-11 15:11] LABS: GLUCOSE,POINT OF CARE 119 MG/DL (70-110)
[2022-03-11 16:00] VITALS: BP 113/51
[2022-03-11] MEDS: LURASIDONE HCL 80 MG TABLET PO SCH (17:18)
[2022-03-11 18:11] LABS: GLUCOSE,POINT OF CARE 149 MG/DL (70-110)
[2022-03-11 18:11] LABS: GLUCOSE,POINT OF CARE 137 MG/DL (70-110)
[2022-03-11 18:11] LABS: GLUCOSE,POINT OF CARE 78 MG/DL (70-110)
[2022-03-11 20:00] VITALS: BP 105/70
[2022-03-11 20:21] LABS: GLUCOMETER DEV NAME(LOC) AHU.; GLUCOSE,POINT OF CARE 164 MG/DL (70-110)
[2022-03-11 20:51] LABS: GLUCOSE,POINT OF CARE 141 MG/DL (70-110)
[2022-03-11 20:51] LABS: GLUCOSE,POINT OF CARE 96 MG/DL (70-110)
[2022-03-11 20:51] LABS: GLUCOSE,POINT OF CARE 166 MG/DL (70-110)
[2022-03-11 20:51] LABS: GLUCOSE,POINT OF CARE 57 MG/DL (70-110)
[2022-03-11] MEDS: ATORVASTATIN CALCIUM 40 MG TABLET PO SCH (20:55)
[2022-03-11] MEDS: TraZODone HCL 100 MG TABLET PO SCH (20:55)
[2022-03-11] MEDS: ETHYL ALCOHOL 62% ANTISEPTIC NASAL SANITIZER 0.6 ML AMPUL NASAL SCH (23:11)
[2022-03-12] VITALS: BP 120/75
[2022-03-12 00:01] LABS: GLUCOSE,POINT OF CARE 151 MG/DL (70-110)
[2022-03-12 00:01] LABS: GLUCOSE,POINT OF CARE 132 MG/DL (70-110)
[2022-03-12 00:02] LABS: GLUCOSE,POINT OF CARE 117 MG/DL (70-110)
[2022-03-12 04:00] VITALS: BP 120/66
[2022-03-12 05:21] LABS: BASOPHILS % (AUTO) 0.2 % (0.0-2.0); EOSINOPHILS % (AUTO) 4.9 % (1.0-6.0); HEMATOCRIT 34.3 % (41-53); HEMOGLOBIN 10.9 g/dL (13.5-17.5); LYMPHOCYTES # (AUTO) 1.5 K/uL (1.0-4.8); LYMPHOCYTES % (AUTO) 25.6 % (22.0-44.0); MEAN CORPUSCULAR HEMOGLOBIN 22.9 pg (26.0-34.0); MEAN CORPUSCULAR HGB CONC 31.8 G/dL (31.0-37.0); MEAN CORPUSCULAR VOLUME 72 fL (80-100); MONOCYTES # (AUTO) 0.6 K/uL (0.1-1.0); MONOCYTES % (AUTO) 10.2 % (2.0-9.0); NEUTROPHILS # (AUTO) 3.5 K/uL (1.8-7.7); NEUTROPHILS % (AUTO) 59.1 % (40.0-70.0); PLATELET COUNT (AUTO) 238 K/uL (150-450); RED BLOOD CELL COUNT(AUTO) 4.78 MIL/uL (4.50-5.90); RED CELL DISTRIBUTION WIDTH 20.3 % (11.5-14.5)
[2022-03-12 05:31] LABS: ANION GAP 12 mmol/L (8-16); CARBON DIOXIDE 24 mmol/L (22-29); CHLORIDE 105 mmol/L (98-107); CREATININE 0.93 mg/dL (0.60-1.30); GLOMERULAR FILTR. RATE CALC > 60 mL/min (>60); GLUCOSE,RANDOM 147 mg/dL (70-110); SODIUM SERUM 141 mmol/L (136-145); UREA NITROGEN, BLOOD 7 mg/dL (7-18)
[2022-03-12] MEDS: GlipiZIDE 5 MG TABLET PO SCH ×2 (05:49→16:15)
[2022-03-12 07:36] LABS: GLUCOSE,POINT OF CARE 145 MG/DL (70-110)
[2022-03-12 07:36] LABS: GLUCOSE,POINT OF CARE 99 MG/DL (70-110)
[2022-03-12 07:36] LABS: GLUCOSE,POINT OF CARE 128 MG/DL (70-110)
[2022-03-12 07:36] LABS: GLUCOSE,POINT OF CARE 112 MG/DL (70-110)
[2022-03-12 07:36] LABS: GLUCOSE,POINT OF CARE 90 MG/DL (70-110)
[2022-03-12 07:36] LABS: GLUCOSE,POINT OF CARE 154 MG/DL (70-110)
[2022-03-12 08:00] VITALS: BP 142/76
[2022-03-12] MEDS: ETHYL ALCOHOL 62% ANTISEPTIC NASAL SANITIZER 0.6 ML AMPUL NASAL SCH ×2 (08:36→21:55)
[2022-03-12] MEDS: PANTOPRAZOLE SODIUM 40 MG/VIAL IVP SCH (08:36)
[2022-03-12] MEDS: HEPARIN SODIUM,PORCINE 5,000 UNITS/ML VIAL SQ SCH ×2 (08:36→16:16)
[2022-03-12] MEDS: LURASIDONE HCL 80 MG TABLET PO SCH ×2 (08:36→16:15)
[2022-03-12] MEDS: BENZTROPINE MESYLATE 2 MG TABLET PO SCH (08:37)
[2022-03-12] MEDS: BusPIRone HCL 10 MG TABLET PO SCH ×2 (08:37→21:56)
[2022-03-12] MEDS: DIVALPROEX SODIUM 500 MG ER TABLET PO SCH ×2 (08:37→21:55)
[2022-03-12] MEDS: METOPROLOL SUCCINATE 25 MG ER TABLET PO SCH ×2 (08:38→21:55)
[2022-03-12] MEDS: CLOPIDOGREL BISULFATE 75 MG TABLET PO SCH (08:38)
[2022-03-12] MEDS: ISOSORBIDE MONONITRATE 30 MG ER TABLET PO SCH (08:38)
[2022-03-12] MEDS: FINASTERIDE 5 MG TABLET PO SCH (08:38)
[2022-03-12] MEDS: TAMSULOSIN HCL 0.4 MG CAPSULE PO SCH (08:38)
[2022-03-12] MEDS: SERTRALINE HCL 100 MG TABLET PO SCH (08:38)
[2022-03-12] MEDS: ASPIRIN 81 MG DR TABLET PO SCH (08:40)
[2022-03-12 09:41] LABS: GLUCOSE,POINT OF CARE 84 MG/DL (70-110)
[2022-03-12 10:51] LABS: GLUCOSE,POINT OF CARE 174 MG/DL (70-110)
[2022-03-12 10:51] LABS: GLUCOSE,POINT OF CARE 106 MG/DL (70-110)
[2022-03-12 12:00] VITALS: BP 133/81
[2022-03-12] MEDS ORDERED: DEXTROSE 5%-WATER 1,000 ML IV SCH (14:15)
[2022-03-12 16:00] VITALS: BP 111/58
[2022-03-12 20:00] VITALS: BP 116/58
[2022-03-12 20:27] LABS: GLUCOSE,POINT OF CARE 183 MG/DL (70-110)
[2022-03-12 20:27] LABS: GLUCOSE,POINT OF CARE 182 MG/DL (70-110)
[2022-03-12 20:27] LABS: GLUCOSE,POINT OF CARE 155 MG/DL (70-110)
[2022-03-12 20:27] LABS: GLUCOSE,POINT OF CARE 167 MG/DL (70-110)
[2022-03-12 20:27] LABS: GLUCOSE,POINT OF CARE 164 MG/DL (70-110)
[2022-03-12 20:27] LABS: GLUCOMETER DEV NAME(LOC) AHU.; GLUCOSE,POINT OF CARE 109 MG/DL (70-110)
[2022-03-12 20:27] LABS: GLUCOSE,POINT OF CARE 162 MG/DL (70-110)
[2022-03-12 20:27] LABS: GLUCOSE,POINT OF CARE 174 MG/DL (70-110)
[2022-03-12 20:27] LABS: GLUCOSE,POINT OF CARE 193 MG/DL (70-110)
[2022-03-12 20:31] LABS: GLUCOSE,POINT OF CARE 196 MG/DL (70-110)
[2022-03-12 20:31] LABS: GLUCOSE,POINT OF CARE 183 MG/DL (70-110)
[2022-03-12] MEDS: ATORVASTATIN CALCIUM 40 MG TABLET PO SCH (21:55)
[2022-03-12] MEDS: TraZODone HCL 100 MG TABLET PO SCH (21:56)
[2022-03-13] VITALS: BP 115/63
[2022-03-13] MEDS: HEPARIN SODIUM,PORCINE 5,000 UNITS/ML VIAL SQ SCH ×2 (00:17→08:46)
[2022-03-13 00:57] LABS: GLUCOSE,POINT OF CARE 124 MG/DL (70-110)
[2022-03-13 01:01] LABS: GLUCOSE,POINT OF CARE 136 MG/DL (70-110)
[2022-03-13 04:01] LABS: GLUCOSE,POINT OF CARE 124 MG/DL (70-110)
[2022-03-13 06:08] LABS: BASOPHILS % (AUTO) 0.5 % (0.0-2.0); EOSINOPHILS % (AUTO) 5.8 % (1.0-6.0); HEMATOCRIT 34.1 % (41-53); HEMOGLOBIN 10.9 g/dL (13.5-17.5); LYMPHOCYTES # (AUTO) 1.5 K/uL (1.0-4.8); LYMPHOCYTES % (AUTO) 26.8 % (22.0-44.0); MEAN CORPUSCULAR HEMOGLOBIN 22.6 pg (26.0-34.0); MEAN CORPUSCULAR VOLUME 71 fL (80-100); MONOCYTES # (AUTO) 0.6 K/uL (0.1-1.0); MONOCYTES % (AUTO) 10.9 % (2.0-9.0); NEUTROPHILS # (AUTO) 3.1 K/uL (1.8-7.7); PLATELET COUNT (AUTO) 221 K/uL (150-450); RED BLOOD CELL COUNT(AUTO) 4.81 MIL/uL (4.50-5.90); RED CELL DISTRIBUTION WIDTH 19.9 % (11.5-14.5)
[2022-03-13 06:10] LABS: ANION GAP 10 mmol/L (8-16); CALCIUM, TOTAL 8.7 mg/dL (8.8-10.5); CARBON DIOXIDE 25 mmol/L (22-29); CHLORIDE 107 mmol/L (98-107); CREATININE 0.87 mg/dL (0.60-1.30); GLOMERULAR FILTR. RATE CALC > 60 mL/min (>60); GLUCOSE,RANDOM 110 mg/dL (70-110); POTASSIUM 4.2 mmol/L (3.5-5.1); SODIUM SERUM 142 mmol/L (136-145); UREA NITROGEN, BLOOD 8 mg/dL (7-18)
[2022-03-13] MEDS: GlipiZIDE 5 MG TABLET PO SCH ×2 (06:20→06:30)
[2022-03-13 06:51] LABS: GLUCOSE,POINT OF CARE 103 MG/DL (70-110)
[2022-03-13 08:00] VITALS: BP 132/69
[2022-03-13] MEDS: ETHYL ALCOHOL 62% ANTISEPTIC NASAL SANITIZER 0.6 ML AMPUL NASAL SCH (08:46)
[2022-03-13] MEDS: PANTOPRAZOLE SODIUM 40 MG/VIAL IVP SCH (08:46)
[2022-03-13] MEDS: LURASIDONE HCL 80 MG TABLET PO SCH (08:46)
[2022-03-13] MEDS: TAMSULOSIN HCL 0.4 MG CAPSULE PO SCH (08:47)
[2022-03-13] MEDS: ASPIRIN 81 MG DR TABLET PO SCH (08:47)
[2022-03-13] MEDS: DIVALPROEX SODIUM 500 MG ER TABLET PO SCH (08:47)
[2022-03-13] MEDS: BusPIRone HCL 10 MG TABLET PO SCH (08:47)
[2022-03-13] MEDS: BENZTROPINE MESYLATE 2 MG TABLET PO SCH (08:47)
[2022-03-13] MEDS: ISOSORBIDE MONONITRATE 30 MG ER TABLET PO SCH (08:47)
[2022-03-13] MEDS: CLOPIDOGREL BISULFATE 75 MG TABLET PO SCH (08:48)
[2022-03-13] MEDS: METOPROLOL SUCCINATE 25 MG ER TABLET PO SCH (08:48)
[2022-03-13] MEDS: FINASTERIDE 5 MG TABLET PO SCH (08:48)
[2022-03-13] MEDS: SERTRALINE HCL 100 MG TABLET PO SCH (08:48)
[2022-03-13 12:00] VITALS: BP 137/77
[2022-03-13 13:46] LABS: GLUCOSE,POINT OF CARE 221 MG/DL (70-110)
[2022-03-13 20:06] LABS: GLUCOSE,POINT OF CARE 208 MG/DL (70-110)
== END 2022-03-13 14:35 | disposition home or self-care (01) | DRG 420 ==
LOC: EMS 18:25 → ICU 21:23
PROVIDERS: ADMIT Hospitalist; ATTEND Hospitalist
DX: E11.649 Type 2 diabetes mellitus with hypoglycemia without coma (principal); I11.9 Hypertensive heart disease without heart failure; E78.00 Pure hypercholesterolemia, unspecified; T38.3X1A Poisoning by insulin and oral hypoglycemic [antidiabetic] drugs, accidental (unintentional), initial encounter; E78.5 Hyperlipidemia, unspecified; F31.9 Bipolar disorder, unspecified; H54.7 Unspecified visual loss; F20.9 Schizophrenia, unspecified; Z20.822 Contact with and (suspected) exposure to COVID-19; I25.10 Atherosclerotic heart disease of native coronary artery without angina pectoris; Y92.89 Other specified places as the place of occurrence of the external cause; Z86.73 Personal history of transient ischemic attack (TIA), and cerebral infarction without residual deficits; Z83.3 Family history of diabetes mellitus; Z82.49 Family history of ischemic heart disease and other diseases of the circulatory system; Z95.5 Presence of coronary angioplasty implant and graft; Z79.4 Long term (current) use of insulin; I25.2 Old myocardial infarction; Z88.8 Allergy status to other drugs, medicaments and biological substances
CPT/HCPCS: 71045; 80048; 80053; 81003; 82962; 84484; 85025; 85610; 85730; 87081; 93005; 99291; C9113; G0378; J1644; J7042; J7060; 36415-L1; 36415-TC

== ENCOUNTER 2022-03-21 22:56 | Emergency (ER) | payer OTHER ==
[~2022-03-21] VITALS: Ht 188 cm; Wt 109.0 kg
[2022-03-21 23:36] LABS: GLUCOMETER DEV NAME(LOC) ERT.5; GLUCOSE,POINT OF CARE 209 MG/DL (70-110)
[2022-03-22 00:18] LABS: BASOPHILS % (AUTO) 0.7 % (0.0-2.0); EOSINOPHILS % (AUTO) 3.3 % (1.0-6.0); HEMATOCRIT 33.9 % (41-53); HEMOGLOBIN 10.8 g/dL (13.5-17.5); LYMPHOCYTES # (AUTO) 1.6 K/uL (1.0-4.8); LYMPHOCYTES % (AUTO) 23.1 % (22.0-44.0); MEAN CORPUSCULAR HEMOGLOBIN 22.6 pg (26.0-34.0); MEAN CORPUSCULAR HGB CONC 31.9 G/dL (31.0-37.0); MEAN CORPUSCULAR VOLUME 71 fL (80-100); MONOCYTES # (AUTO) 0.6 K/uL (0.1-1.0); MONOCYTES % (AUTO) 8.4 % (2.0-9.0); NEUTROPHILS # (AUTO) 4.5 K/uL (1.8-7.7); NEUTROPHILS % (AUTO) 64.5 % (40.0-70.0); PLATELET COUNT (AUTO) 268 K/uL (150-450); RED BLOOD CELL COUNT(AUTO) 4.79 MIL/uL (4.50-5.90); RED CELL DISTRIBUTION WIDTH 20.3 % (11.5-14.5)
[2022-03-22] MEDS ORDERED: IBUPROFEN 400 MG TABLET PO ONE (00:30)
[2022-03-22 00:32] LABS: ANION GAP 10 mmol/L (8-16); CALCIUM, TOTAL 8.6 mg/dL (8.8-10.5); CARBON DIOXIDE 24 mmol/L (22-29); CHLORIDE 104 mmol/L (98-107); CREATININE 0.81 mg/dL (0.60-1.30); GLOMERULAR FILTR. RATE CALC > 60 mL/min (>60); GLUCOSE,RANDOM 193 mg/dL (70-110); POTASSIUM 4.2 mmol/L (3.5-5.1); SODIUM SERUM 138 mmol/L (136-145); UREA NITROGEN, BLOOD 10 mg/dL (7-18)
[2022-03-22 00:38] LABS: ALANINE AMINOTRANSFERASE 59 U/L (12-78); ALBUMIN 3.5 g/dL (3.4-5.0); ALKALINE PHOSPHATASE 108 U/L (46-116); ASPARTATE AMINOTRANSFERASE 28 U/L (15-37); BILIRUBIN,TOTAL 0.2 mg/dL (0.1-1.0); TOTAL PROTEIN, SERUM 7.2 g/dL (6.4-8.2)
[2022-03-22 00:48] LABS: COVID AG,FIA SOURCE NASOPHARYNGEAL
[2022-03-22 00:50] LABS: VALPROIC ACID < 3 mcg/mL (50-100)
[2022-03-22 06:02] VITALS: BP 189/110
== END 2022-03-22 06:07 | disposition home or self-care (01) ==
LOC: EMS 23:01
DX: R51.9 Headache, unspecified (principal); R07.89 Other chest pain; F41.9 Anxiety disorder, unspecified; F31.9 Bipolar disorder, unspecified; E11.9 Type 2 diabetes mellitus without complications; E78.00 Pure hypercholesterolemia, unspecified; I10 Essential (primary) hypertension; F20.9 Schizophrenia, unspecified; Z86.79 Personal history of other diseases of the circulatory system; Z98.890 Other specified postprocedural states; Z88.6 Allergy status to analgesic agent; Z88.8 Allergy status to other drugs, medicaments and biological substances; Z20.822 Contact with and (suspected) exposure to COVID-19
CPT/HCPCS: 70450; 71045; 80053; 80164; 82948; 82962; 84484; 85025; 93005; 99285; 36415-L1; 36415-TC

== ENCOUNTER 2022-06-17 12:59 | Emergency (ER) | payer OTHER ==
[~2022-06-17] VITALS: Ht 188 cm; Wt 109.1 kg
[~2022-06-17 12:59] MED LIST changes: -GLIP5 PO; +GLIP5TAB12 PO
[2022-06-17 13:34] LABS: BASOPHILS % (AUTO) 0.7 % (0.0-2.0); EOSINOPHILS % (AUTO) 2.3 % (1.0-6.0); HEMATOCRIT 40.4 % (41-53); HEMOGLOBIN 13.2 g/dL (13.5-17.5); LYMPHOCYTES # (AUTO) 1.4 K/uL (1.0-4.8); LYMPHOCYTES % (AUTO) 31.8 % (22.0-44.0); MEAN CORPUSCULAR HEMOGLOBIN 24.7 pg (26.0-34.0); MEAN CORPUSCULAR HGB CONC 32.7 G/dL (31.0-37.0); MEAN CORPUSCULAR VOLUME 76 fL (80-100); MONOCYTES # (AUTO) 0.3 K/uL (0.1-1.0); MONOCYTES % (AUTO) 6.4 % (2.0-9.0); NEUTROPHILS # (AUTO) 2.6 K/uL (1.8-7.7); NEUTROPHILS % (AUTO) 58.8 % (40.0-70.0); PLATELET COUNT (AUTO) 264 K/uL (150-450); RED BLOOD CELL COUNT(AUTO) 5.35 MIL/uL (4.50-5.90); RED CELL DISTRIBUTION WIDTH 21.1 % (11.5-14.5)
[2022-06-17 13:46] LABS: APPEARANCE,URINE CLEAR (CLEAR); BILIRUBIN,URINE NEGATIVE (NEGATIVE); GLUCOSE, URINE (UA) >=1000 mg/dL (NEGATIVE); KETONES,URINE NEGATIVE (NEGATIVE); LEUKOCYTE ESTERASE ,URINE NEGATIVE (NEGATIVE); NITRATE,URINE NEGATIVE (NEGATIVE); OCCULT BLOOD,URINE LARGE (NEGATIVE); PH,URINE 5.5 (5.0-8.0); PROTEIN,URINE 30-70 mg/dL (NEGATIVE); UROBILINOGEN,URINE <=1.0 mg/dL (<=1.0)
[2022-06-17 13:48] LABS: ALANINE AMINOTRANSFERASE 53 U/L (12-78); ALBUMIN 4.1 g/dL (3.4-5.0); ALKALINE PHOSPHATASE 137 U/L (46-116); ANION GAP 11 mmol/L (8-16); ASPARTATE AMINOTRANSFERASE 19 U/L (15-37); BILIRUBIN,TOTAL 0.2 mg/dL (0.1-1.0); CALCIUM, TOTAL 9.3 mg/dL (8.8-10.5); CARBON DIOXIDE 23 mmol/L (22-29); CHLORIDE 96 mmol/L (98-107); CREATININE 0.98 mg/dL (0.60-1.30); POTASSIUM 4.8 mmol/L (3.5-5.1); SODIUM SERUM 130 mmol/L (136-145); TOTAL PROTEIN, SERUM 7.9 g/dL (6.4-8.2); UREA NITROGEN, BLOOD 13 mg/dL (7-18)
[2022-06-17 13:53] LABS: GLOMERULAR FILTR. RATE CALC > 60 mL/min (>60); GLUCOSE,RANDOM 487 mg/dL (70-110)
[2022-06-17 13:56] LABS: BACTERIA,URINE None Seen /HPF (None Seen); RBC,URINE >100 /HPF (0-2); SQUAMOUS EPITHELIAL CELL,UR Few /LPF (None Seen); WBC,URINE None Seen /HPF (0-5)
[2022-06-17] MEDS ORDERED: INSULIN REGULAR, HUMAN 100 UNITS/ML IVP ONE (16:15)
[2022-06-17] MEDS ORDERED: SODIUM CHLORIDE 0.9% 1,000 ML IV ONE (16:15)
[2022-06-17] MEDS ORDERED: KETOROLAC TROMETHAMINE 30 MG/ML VIAL IVP ONE (16:15)
[2022-06-17] MEDS ORDERED: MetroNIDAZOLE 250 MG TABLET PO ONE (18:45)
[2022-06-17] MEDS ORDERED: CIPROFLOXACIN HCL 250 MG TABLET PO ONE (18:45)
[2022-06-17 18:56] LABS: GLUCOSE,POINT OF CARE 255 MG/DL (70-110)
[2022-06-17 19:00] VITALS: BP 154/99
[2022-06-17] MEDS ORDERED: CIPR500T10 PO (19:01)
[2022-06-17] MEDS ORDERED: METR500 PO (19:01)
== END 2022-06-17 19:23 | disposition home or self-care (01) ==
LOC: EMS 12:59
DX: K52.9 Noninfective gastroenteritis and colitis, unspecified (principal); N40.0 Benign prostatic hyperplasia without lower urinary tract symptoms; R31.9 Hematuria, unspecified; R30.0 Dysuria; R10.31 Right lower quadrant pain; E11.65 Type 2 diabetes mellitus with hyperglycemia; F41.9 Anxiety disorder, unspecified; F31.9 Bipolar disorder, unspecified; E78.00 Pure hypercholesterolemia, unspecified; I10 Essential (primary) hypertension; F20.9 Schizophrenia, unspecified; Z86.73 Personal history of transient ischemic attack (TIA), and cerebral infarction without residual deficits; Z86.79 Personal history of other diseases of the circulatory system; Z98.890 Other specified postprocedural states; Z88.8 Allergy status to other drugs, medicaments and biological substances; Z88.6 Allergy status to analgesic agent
CPT/HCPCS: 99284; 74176; 96374; 96361; 96375; 80053; 81001; 82962; 85025; 36415; J1815; J1885; J7030

== ENCOUNTER 2022-08-08 16:50 | Emergency (ER) | payer OTHER ==
[~2022-08-08] VITALS: Ht 188 cm; Wt 109.0 kg
[~2022-08-08 16:50] MED LIST changes: +CIPR500T10 PO; +METR500 PO
[2022-08-08] MEDS ORDERED: SODIUM CHLORIDE 0.9% 1,000 ML IV ONE (17:15)
[2022-08-08] MEDS ORDERED: PROMETHAZINE HCL 25 MG TABLET PO ONE (17:15)
[2022-08-08] MEDS ORDERED: KETOROLAC TROMETHAMINE 30 MG/ML VIAL IVP ONE (17:15)
[2022-08-08 17:40] LABS: BASOPHILS % (AUTO) 0.6 % (0.0-2.0); EOSINOPHILS % (AUTO) 1.8 % (1.0-6.0); HEMATOCRIT 38.6 % (41-53); HEMOGLOBIN 12.5 g/dL (13.5-17.5); LYMPHOCYTES # (AUTO) 1.2 K/uL (1.0-4.8); LYMPHOCYTES % (AUTO) 19.5 % (22.0-44.0); MEAN CORPUSCULAR HEMOGLOBIN 26.2 pg (26.0-34.0); MEAN CORPUSCULAR HGB CONC 32.5 G/dL (31.0-37.0); MEAN CORPUSCULAR VOLUME 81 fL (80-100); MONOCYTES # (AUTO) 0.4 K/uL (0.1-1.0); MONOCYTES % (AUTO) 6.3 % (2.0-9.0); NEUTROPHILS # (AUTO) 4.5 K/uL (1.8-7.7); NEUTROPHILS % (AUTO) 71.8 % (40.0-70.0); PLATELET COUNT (AUTO) 292 K/uL (150-450); RED BLOOD CELL COUNT(AUTO) 4.78 MIL/uL (4.50-5.90); RED CELL DISTRIBUTION WIDTH 18.4 % (11.5-14.5)
[2022-08-08 17:49] LABS: ANION GAP 8 mmol/L (8-16); CALCIUM, TOTAL 9.5 mg/dL (8.8-10.5); CARBON DIOXIDE 28 mmol/L (22-29); CHLORIDE 102 mmol/L (98-107); CREATININE 0.83 mg/dL (0.60-1.30); GLUCOSE,RANDOM 242 mg/dL (70-110); POTASSIUM 3.7 mmol/L (3.5-5.1); SODIUM SERUM 138 mmol/L (136-145); UREA NITROGEN, BLOOD 11 mg/dL (7-18)
[2022-08-08 17:50] LABS: GLOMERULAR FILTR. RATE CALC > 60 mL/min (>60)
[2022-08-08 17:55] LABS: B-TYPE NATRIURETIC PEPTIDE 70 pg/mL (0-100)
[2022-08-08 17:58] LABS: ALANINE AMINOTRANSFERASE 54 U/L (12-78); ALKALINE PHOSPHATASE 82 U/L (46-116); ASPARTATE AMINOTRANSFERASE 30 U/L (15-37); BILIRUBIN,TOTAL 0.3 mg/dL (0.1-1.0); TOTAL PROTEIN, SERUM 7.8 g/dL (6.4-8.2)
[2022-08-08 18:08] LABS: VALPROIC ACID 4 mcg/mL (50-100)
[2022-08-08 18:18] LABS: COVID AG,FIA SOURCE NASOPHARYNGEAL
[2022-08-08 18:28] VITALS: BP 190/100
[2022-08-08 18:44] LABS: INFLUENZA TYPE A NEGATIVE FOR TYPE A (NEGATIVE); INFLUENZA TYPE B NEGATIVE FOR TYPE B (NEGATIVE)
== END 2022-08-08 19:30 | disposition home or self-care (01) ==
LOC: EMS 16:50
DX: R55 Syncope and collapse (principal); R07.9 Chest pain, unspecified; R51.9 Headache, unspecified; M79.605 Pain in left leg; M79.604 Pain in right leg; F41.9 Anxiety disorder, unspecified; F31.9 Bipolar disorder, unspecified; E11.9 Type 2 diabetes mellitus without complications; E78.00 Pure hypercholesterolemia, unspecified; I10 Essential (primary) hypertension; F20.9 Schizophrenia, unspecified; Z86.73 Personal history of transient ischemic attack (TIA), and cerebral infarction without residual deficits; Z86.79 Personal history of other diseases of the circulatory system; Z98.890 Other specified postprocedural states; Z88.6 Allergy status to analgesic agent; Z88.8 Allergy status to other drugs, medicaments and biological substances; Z20.822 Contact with and (suspected) exposure to COVID-19
CPT/HCPCS: 99285; 96374; 70450; 71045; 96361; 87426; 80053; 80164; 83880; 84484; 85025; 87804; 36415; 93005; J1885; J7030